=== PATIENT | male | born 1960 | race Caucasian/White ===

== ENCOUNTER 2020-01-03 13:55 | Observation (INO) | payer MEDICARE, SELFPAY ==
[2020-01-03] VITALS (9 sets, daily range): BP systolic 112–132; BP diastolic 68–95; PULSE 70–90; RESP 16–18; TEMP 36.6–37.4; O2SAT 95–98; BMI 21.2
--- NOTE | ~2020-01-03 | XR_ITS ---
EXAMINATION: XR chest 2V EXAM DATE: 01/03/2020 14:49 INDICATION: Productive cough. Chest pain. TECHNIQUE: Frontal and lateral projections of the chest obtained and reviewed. There is no prior toñito dy for comparison. FINDINGS: Sternotomy wires are present without findings to suggest sternal dehiscence. Scattered chronometer assembler sandoval reticular nodular opacities with basilar predominance. This has similar appearance to prior study and is likely patient's underlying interstitial lung disease. No confluent consolidation, pneumothor ax or pleural effusion suspected. There are mild bony degenerative changes. Accounting for difference s in technique, there is no significant interval change. IMPRESSION: 1. Chronic interstitial lung disease. 2. No acute findings. Reviewed, dictated and finalized at location B. SORTER
--- NOTE | 2020-01-03 13:58 | ECG_ITS ---
Measurements Intervals [place] Rate: 78 P: 50 AR: 163 QRS: -16 QRSD: 132 T: 39 QT: 402 QTc: 458 Interpretive Statements SINUS RHYTHM RIGHT BUNDLE BRANCH BLOCK ABNORMAL ECG Electronically Signed On 01-03-2020 14:25:23 RETAIL STORE ASSISTANT by Familia Zuleta D.O.
[2020-01-03 14:17] LABS: Basophils Absolute Auto 0.1 K/mm3 (0.0-0.1); Basophils Percent Auto 0.5 % (0.2-1.2); Eosinophils Absolute Auto 0.4 K/mm3 (0-0.3); Eosinophils Percent Auto 3.2 % (0-4.4); Hematocrit 44.1 % (42.0-52.0); Hemoglobin 14.8 g/dL (14.0-18.0); Immature Granulocyte Absolute 0.07 K/mm3 (0.00-0.031); Immature Granulocyte Percent A 0.6 % (0-0.5); Lymphocytes Absolute Auto 2.36 K/mm3 (0.9-3.2); Lymphocytes Percent Auto 19.1 % (18.3-44.2); Mean Corpuscular HGB Conc 33.6 g/dl (32-36); Mean Corpuscular Hemoglobin 31.5 pg (26-34); Mean Corpuscular Volume 93.8 fl (80-100); Monocytes Absolute Auto 1.9 K/mm3 (0.1-0.6); Monocytes Percent Auto 15.3 % (2.6-8.5); Neutrophils Absolute Auto 7.6 K/mm3 (1.3-6.7); Neutrophils Percent Auto 61.3 % (45.5-73.1); Platelet Count Result 167 k/mm3 (150-375); Red Cell Distribution Width 13.2 % (11.5-14.5); White Blood Count 12.4 K/mm3 (4.5-10.0)
[2020-01-03 14:30] LABS: Blood Urea Nitrogen 4 mg/dL (9-20); Calcium 9.3 mg/dL (8.4-10.2); Carbon Dioxide 26 mmol/L (22-30); Chloride 100 mmol/L (98-107); Estimated CRCL calculation 107 ml/min; Estimated Glomerular Filt Rate > 60; Glucose 139 mg/dL (75-110); Potassium 3.9 mmol/L (3.4-5.0); Sodium 140 mmol/L (137-145)
[2020-01-03 14:31] LABS: INR 1.1; Prothrombin Time 13.9 Seconds (11.1-14.7)
[2020-01-03 14:32] LABS: Partial Thromboplastin Time 31.1 SECONDS (22.3-36.8)
--- NOTE | 2020-01-03 14:40 | ED.CHESTPAIN ---
HPI - Chest Pain General Chief Complaint: Chest Pain Stated Complaint: cough, chest pain Time Seen by Provider: 01/03/20 14:38 Source: patient and RN notes reviewed Mode of arrival: ambulatory Limitations: no limitations History of Present Illness HPI narrative: Pt is a 59 y/o male with a Hx of multiple NJ's and 6 cardiac stents, who presents to the ED with c/o central chest pain starting early this morning. He notes that he woke up around 3 AM this morning with pain in the center of his chest. Pt states that he only has pain with inspiration, and notes that his pain is currently resolved in the ED bed. He reports having a cough for the past month, but notes that he began producing a green sputum with his cough last night. Pt denies any SOB, fever, chills, nausea, or vomiting. MD complaint: chest pain Pertinent past history: coronary artery disease and prior NJ Onset (ago): hour(s) (11) Timing of current episode: now resolved Onset: awoke with symptoms Pain location: other (central chest) Exacerbating factors: inspiration Associated symptoms: cough (productive) Related Data Home Medications Medication Instructions Recorded Confirmed aspirin 81 mg tablet,delayed 81 mg PO DAILY 11/29/19 release metoprolol succinate 50 mg 50 mg PO DAILY 11/29/19 tablet,extended release 24 hr nitroglycerin 6.5 mg 6.5 mg PO Q12H PRN 11/29/19 capsule,extended release ticagrelor 90 mg tablet 90 mg PO BID tablet 11/29/19 evolocumab 140 mg/mL subcutaneous 140 mg SUB-Q ONCE 12/31/19 pen injector isosorbide mononitrate 30 mg 30 mg PO DAILY 12/31/19 tablet,extended release 24 hr gbcvxi-mfrmuqxb-mseyhdg PO 12/31/19 6,000-19,000-30,000 unit capsule,delayed rel omega-3 fatty acids 1,000 mg 1,000 mg PO DAILY 12/31/19 capsule Allergies Allergy/AdvReac Type Severity Reaction Status Date / Time Xjyqovh-Jcq-Vnl Reductase Allergy Unknown Unknown Verified 01/03/20 14:10 Inhibitor Review of Systems Review of Systems: All systems reviewed & are unremarkable except as noted in HPI and below Constitutional: Constitutional: Denies chills and Denies fever(s) Cardiovascular: Cardiovascular: Reports chest pain (central chest pain) Respiratory: Respiratory: Reports cough (productive) and Denies dyspnea Gastrointestinal: Gastrointestinal: Denies nausea and Denies vomiting PMFSH Past Medical History Medical History Chronic pancreatitis Coronary artery disease GERD (gastroesophageal reflux disease) History of rectal polyps Hyperlipidemia Hypertension Myocardial infarction x7 Pneumonia TIA (transient ischemic attack) Surgical History Surgical History History of cholecystectomy History of heart artery stent x6 History of tonsillectomy Hx of appendectomy Hx of CABG Hx of cardiac catheterization Social History Social History Smoking status: Former smoker Second hand tobacco smoke exposure: Yes Smoking end date: 11/24/99 Alcohol intake: never Substance use: never Substance use type: does not use Gender identity (if verbalized by the patient): Male Comments PCP is Dr. Padilla. Exam Narrative: Exam Narrative: General appearance: Well-developed, well-nourished Skin: Normal color Head: Normocephalic, nontraumatic Eyes: Clear conjunctiva ENT: Oropharynx normal, ears normal, nose normal Neck: Supple, nontender Chest and respiratory: Airway patent, no respiratory distress, no accessory muscle use Heart: Regular rate/rhythm Abdomen: Soft, nontender, no organomegaly, quiet bowel sounds Vascular: Normal peripheral pulses, normal capillary refill. Musculoskeletal: Normal range of motion, nontender back Neurologic: Alert and oriented ?3, COMMERCIAL LOAN ADMINISTRATOR is normal as tested, no gross motor deficit
[2020-01-03 14:42] LABS: Troponin I < 0.012 ng/mL (0.000-0.034)
[2020-01-03] MEDS: ASPIRIN 81 MG CHEWABLE TABLET 324 MG PO (14:54)
[2020-01-03 17:31] LABS: Troponin I < 0.012 ng/mL (0.000-0.034)
[2020-01-03] MEDS: ENOXAPARIN 80 MG/0.8 ML SYRINGE SUB-Q (18:15)
--- NOTE | 2020-01-03 20:25 | ADMGEN ---
This patient, Kashif Rhodes, was admitted to IMU Room 213-01. Patient/family oriented to hospital policies and general routines including ID bracelet, bed and alarms, visiting hours, pain management, procedures, bathroom and other care routines, personal items, smoking policy, room service/diet, and visiting hours. Valuables list has been completed. Information on how to activate the Rapid Response Team has been discussed. Patient/Family are encouraged to report perceived risks to care and to ask questions if they do not understand what they are told or what they should do.
[2020-01-03 20:28] LABS: Troponin I < 0.012 ng/mL (0.000-0.034)
--- NOTE | 2020-01-03 22:00 | PM.IMHP ---
H&P: HPI History of Present Illness Chief complaint: Chest pain and cough. Narrative: Kashif Rhodes is a pleasant 59 year old male with premature coronary artery disease who presented to the emergency department earlier this afternoon via private vehicle from home for evaluation of chest pain and a cough. He has had cold symptoms for the past 3 days including sinus congestion, clear rhinorrhea, and a cough that is now productive of green phlegm. He has been drinking an mhal-gwg-fhufcug cold and flu remedy with a bit of benefit. This morning, however, he was wakened from sleep at 03:00 with diffuse anterior chest pain, more so on the right. He describes classic pleuritic pain, stating it is worse with coughing and deep inspiration. His has had similar symptoms as well. He was concerned that perhaps he was developing pneumonia and thus came in for evaluation. He was surprised when he was being admitted, and on several occasions he tells me ?I have had heart attacks and I know that this is not all similar.? He has not had fever, chills, or sweats. He has not had exertional chest pain or shortness of breath. No orthopnea or PND. No nausea or vomiting. Review of Systems Review of Systems: Narrative: Twelve systems were reviewed with pertinent positives and negatives as per HPI. No headache or neck ache. He denies otalgia and odynophagia. He has occasional diarrhea which he blames on his liver disease. He has not had any of that recently. No lower extremity edema, calf pain, or tenderness. No history of venous thromboembolism. Except as documented, all other systems were reviewed and are negative. [facility] Past Medical History Medical History (Updated 01/04/20 @ 02:57 by Candi Wyatt PA-C) Chronic pancreatitis Cirrhosis Previous liver biopsy confirming diagnosis. Apparently cryptogenic in etiology. Coronary artery disease Patient with history of premature coronary artery disease in his 40s. He is status post multivessel CABG. On several occasions he was taken to cardiac catheterization lab per Dr. Champion, and due to his complex disease he has at times required intervention at [facility]. GERD (gastroesophageal reflux disease) History of rectal polyps Hyperlipidemia Hypertension TIA (transient ischemic attack) Surgical History Surgical History (Updated 01/04/20 @ 02:53 by Candi Wyatt PA-C) History of cholecystectomy History of heart artery stent x6 History of tonsillectomy Hx of cardiac catheterization Last cardiac catheterization at this facility was May 31, [address] Champion. At that time it was noted that he had a patent stent to the circumflex. SVG to the OM and diagonal were apparently occluded. [place] to LAD was patent. There was severe stenosis to a very large caliber vein graft to the RCA with 95 to 99% stenosis. This was deemed to be too high risk and he was transferred to [facility], where a total of 6 stents were placed. Status post appendectomy, follow-up exam Status post coronary artery bypass graft Family History Family History Mother Family history of cardiovascular disease Diabetes mellitus Myocardial infarct Sibling Diabetes mellitus Pancreatitis Social History Social History (Updated 01/04/20 @ 02:54 by Candi Wyatt PA-C) Social History: The patient lives in [place] with his . He designates his as his surrogate decision maker and he wishes to be a full code. 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 His primary care provider is Dr. Loreta Padilla. He smoked 1 to 2 cigars a day but quit in 2008 after his bypass. No alcohol or drug abuse. Spiritual care concerns: No Agree to blood products: Yes Meds Home Medications and Allergies Home Medications Medication Instructions Recorded Confirmed Type niacin 1,000 mg tablet,extended 1,000 mg PO .QHS #90 tablet 09/28/19 01/03/20 Rx release metoprolol suc
[2020-01-04] VITALS (7 sets, daily range): BP systolic 114–121; BP diastolic 72–79; PULSE 65–103; RESP 16–20; TEMP 36.6–36.7; O2SAT 97–98
[2020-01-04] MEDS: TICAGRELOR 90 MG TABLET PO (10:01)
[2020-01-04] MEDS: ASPIRIN 81 MG ENTERIC TABLET PO (10:01)
[2020-01-04] MEDS: OMEGA 3 POLYUNSAT FATTY ACIDS 1 GM CAP PO (10:01)
[2020-01-04] MEDS: METOPROLOL SUCCINATE EXT REL 50 MG TABCR PO (10:01)
--- NOTE | 2020-01-04 10:06 | PM.CNCAR ---
Assessment and Plan Assessment and plan (1) Respiratory tract infection: Code(s): J98.8 - Other specified respiratory disorders Status: Acute Assessment and Plan: Management as per primary team Annual influenza vaccinations recommended (2) Chest pain: Code(s): R07.9 - Chest pain, unspecified Status: Acute Assessment and Plan: Patient has chest pain while coughing. His EKG shows sinus rhythm, right bundle-branch block, no acute ST segment abnormality. Serial troponins are negative. (3) Coronary artery disease: Qualifiers: Associated angina: angina presence unspecified Coronary Disease-Associated Artery/Lesion type: unspecified vessel or lesion type [place] vs. transplanted heart: [place] heart Qualified Code(s): I25.10 - Atherosclerotic heart disease of [place] coronary artery without angina pectoris Code(s): I25.10 - Atherosclerotic heart disease of [place] coronary artery without angina pectoris Status: Acute Assessment and Plan: Patient has known coronary disease, history of CABG; history of multiple PCI/stent placements. Continue current optimal medical treatment including dual antiplatelet therapy with aspirin and ticagrelor; beta-maryjane, nitrates and PCSK9 inhibitor. Patient has history of statin intolerance. Patient will follow-up with his primary auctioneer art-Dr. Champion for longitudinal care. (4) History of heart artery stent: Code(s): Z95.5 - Presence of coronary angioplasty implant and graft Status: Chronic History of Present Illness History of Present Illness Consult date/time: Date of consult: 01/04/20 10:06 Reason for consult: Chest pain Requesting physician:KRISTINA Wyatt Chief complaint: Chest pain HPI: 59-year-old male with complex cardiac history with known CAD, history of CABG in 2008 with GUAN to LAD, SVG to OM, diagonal and RCA; history of multiple PCI/stent placements over the years (last intervention on 05/31/2019 at [facility] with laser atherectomy with overlapping drug-eluting stents in the ostial-proximal vein graft; drug-eluting stent to the anastomosis of RPL); statin intolerance currently on PCSK9 inhibitor. Patient was admitted to the hospital with complaints of cough with expectoration associated with chest discomfort. He states that his symptoms started about 1 day ago with cough and greenish expectoration. He had some discomfort in the chest during coughing. He denied any fever or chills. Patient denies any recent sick contacts. He states that he has not had influenza vaccination for this season yet. Bedside influenza test was a reportedly negative. Patient has no CAD and history of multiple PCI/stent placements. Last intervention once on 05/31/2019 at [facility]. He has not had any recurrent angina. He reports compliance with current medical regimen including antiplatelet therapy and PCSK9 inhibitor. He is a nonsmoker. EKG on this admission which I personally evaluated shows sinus rhythm, right bundle-branch block, no acute ST segment abnormality. Serial troponins are negative. Chest x-ray showed chronic interstitial lung disease, no acute changes. Reason For Visit: Chest pain and cough. Review of Systems Constitutional: Constitutional: Denies chills, Denies fatigue, Denies fever(s) and Denies headache(s) Eyes: Eyes: Reports as per HPI, Denies change in vision, Denies loss of vision and Denies eye pain ENT: Reports as per HPI, Reports Normal hearing present, Denies headache(s), Denies lip swelling, Denies epistaxis and Denies sore throat Cardiovascular: Cardiovascular: Reports as per HPI, Reports chest pain (Chest pain while coughing), Denies syncope, Denies irregular heart rhythm, Denies lightheadedness and Denies dyspnea Respiratory: Respiratory: Reports as per HPI, Reports cough, Denies dyspnea and Denies wheezing Gastrointestinal: Gastrointestinal: Reports as per HPI, Denies abdominal pain
[2020-01-04] MEDS: ISOSORBIDE MONONITRATE 30 MG TAB.ER.24H PO (11:45)
--- NOTE | 2020-01-04 11:45 | PM.DS ---
DS: Diagnosis Admitting Diagnosis Admitting Diagnosis: Chest pain, unspecified Discharge Diagnosis (1) Chest pain: Code(s): R07.9 - Chest pain, unspecified Status: Acute Assessment and Plan: Patient, again, describes pleuritic chest pain, likely pleurisy due to a viral syndrome. He is wishing to go home today. His chest pain with coughing has nearly resolved today with Mucinex He has been ruled out for acute coronary syndrome by serial troponins. Cardiology consulted by ER and appreciate input. (2) Viral syndrome: Code(s): B34.9 - Viral infection, unspecified Status: Acute Assessment and Plan: No evidence of pneumonia on chest x-ray, although his white count is a bit elevated. Bedside influenza testing was negative. Will continue to refrain from antibiotics at this time as he has been afebrile;VSS Supportive care including Tylenol for pleuritic pain and Mucinex to help mobilize secretions at discharge (3) Coronary artery disease: Qualifiers: Associated angina: angina presence unspecified Coronary Disease-Associated Artery/Lesion type: unspecified vessel or lesion type [place] vs. transplanted heart: [place] heart Qualified Code(s): I25.10 - Atherosclerotic heart disease of [place] coronary artery without angina pectoris Code(s): I25.10 - Atherosclerotic heart disease of [place] coronary artery without angina pectoris Status: Acute Assessment and Plan: No acute issues. Continue to of anti-platelet therapy and beta maryjane. Follow up with Cellophane Bath Mixer as OP (4) Hypertension: Code(s): I10 - Essential (primary) hypertension Status: Acute Assessment and Plan: Blood pressures were reviewed and they are stable. Continue antihypertensives and monitor daily. DS: Summary Hospital Course Reason for hospitalization: Chest pain, rule out ACS Hospital Course: Patient is a 59 yo M with history of premature coronary artery disease who presented to the emergency department on 01/03 via private vehicle from home for evaluation of chest pain and a cough. He had cold symptoms for 3 days prior to presentation including sinus congestion, clear rhinorrhea, and a cough that is now productive of green phlegm. The morning of presentation, he was awoken from his sleep at 0300 with anterior and right chest pain. The pain was pleuritic in nature, worse with coughing and deep inspiration; patient commented on several occasions on admission, ?I have had heart attacks and I know that this is not all similar.? ER requested patient to be admitted for further evaluation and to rule out ACS as patient was at high risk for this. HEART score of 4. Please see H&P for further details. Presenting VS: BP 112/68, HR 78, RR 16, temp 99.3, sat 98% RA Presenting Pertinent labs: WBC 12.4. Troponins negative x3. CBC, BMP, coags otherwise unremarkable Micro: none Imagin/10 CXR IMPRESSION: 1. Chronic interstitial lung disease. 2. No acute findings. ECG: Interpretive Statements SINUS RHYTHM RIGHT BUNDLE BRANCH BLOCK ABNORMAL ECG Patient was admitted to the hospitalist service for further evaluation; Dr. Turpin (Cardiology) was consulted for further input. Troponins negative x3, CXR unremarkable, influenza neagtive, VSS, afebrile during stay. It was felt this was pleuritic in nature and pain had subsided with mucinex and Tylenol. Patient was cleared from a Cardiology standpoint. Patient instructed to continue taking his medication as prescribed. Patient instructed to take Tylenol sparingly and Mucinex for symptom relief as this was felt to be viral in nature. Patient hemodynamically stable and in improved condition on discharge on 01/04. Patient instructed to follow up with PCP as needed and Cellophane Bath Mixer per their instructions. Status
== END 2020-01-04 12:23 | disposition home or self-care (01) ==
LOC: ANHED 17:26 → ANHIMU 18:45
PROVIDERS: Admitting Provider Internal Medicine; Emergency Provider Emergency Medicine; PCP Family Medicine; Visit Provider Family Medicine
DX: R07.9 Chest pain, unspecified (principal); B34.9 Viral infection, unspecified; I25.10 Atherosclerotic heart disease of native coronary artery without angina pectoris; I10 Essential (primary) hypertension; I25.2 Old myocardial infarction; Z23 Encounter for immunization; K86.1 Other chronic pancreatitis; K21.9 Gastro-esophageal reflux disease without esophagitis; E78.5 Hyperlipidemia, unspecified; Z86.73 Personal history of transient ischemic attack (TIA), and cerebral infarction without residual deficits; Z87.891 Personal history of nicotine dependence; Z95.5 Presence of coronary angioplasty implant and graft
CPT/HCPCS: 36415; 71046; 80048; 84484; 85025; 85610; 85730; 87804; 90471; 90686; 93005; 96372; 99285; A9270; G0008; G0378; J1650

== ENCOUNTER 2020-01-20 10:34 | Outpatient (CLI) | payer MEDICARE, SELFPAY ==
[2020-01-20 11:26] LABS: Alanine Aminotransferase 53 U/L (4-50); Albumin Level 4.4 g/dL (3.5-5.1); Alkaline Phosphatase 112 U/L (38-126); Aspartate Amino Transferase 68 U/L (17-59); Bilirubin,Total 0.4 mg/dL (0.2-1.3); Blood Urea Nitrogen 5 mg/dL (9-20); Calcium 9.8 mg/dL (8.4-10.2); Carbon Dioxide 29 mmol/L (22-30); Chloride 101 mmol/L (98-107); Cholesterol 120 mg/dL (0-200); Estimated Glomerular Filt Rate > 60; Glucose 139 mg/dL (75-110); HDL Direct 22 mg/dL; Potassium 4.1 mmol/L (3.4-5.0); Sodium 141 mmol/L (137-145); Triglycerides 305 mg/dL (<150)
[2020-01-20 11:37] LABS: LDL Cholesterol Direct 49 mg/dL
== END 2020-01-20 10:35 | disposition home or self-care (01) ==
LOC: ANHLAB 10:38
PROVIDERS: PCP Family Medicine; Visit Provider Family Medicine
DX: E78.5 Hyperlipidemia, unspecified (principal)
CPT/HCPCS: 36415; 80053; 80061

== ENCOUNTER 2020-01-24 08:57 | Outpatient (CLI) | payer MEDICARE, SELFPAY ==
[2020-01-24 09:19] LABS: Hemoglobin A1C 5.4 % (<5.7)
== END 2020-01-24 08:58 | disposition home or self-care (01) ==
PROVIDERS: PCP Family Medicine; Visit Provider Family Medicine
DX: R73.01 Impaired fasting glucose (principal)
CPT/HCPCS: 36415; 83036

== ENCOUNTER 2020-03-16 11:36 | Outpatient (CLI) | payer MEDICARE, SELFPAY ==
[2020-03-16 12:24] LABS: Cholesterol 147 mg/dL (0-200); HDL Direct 23 mg/dL; Triglycerides 395 mg/dL (<150)
[2020-03-16 12:41] LABS: LDL Cholesterol Direct 56 mg/dL
== END 2020-03-16 11:37 | disposition home or self-care (01) ==
PROVIDERS: PCP Family Medicine; Visit Provider Specialist
DX: Z13.220 Encounter for screening for lipoid disorders (principal); I25.10 Atherosclerotic heart disease of native coronary artery without angina pectoris; Z95.5 Presence of coronary angioplasty implant and graft; Z53.09 Procedure and treatment not carried out because of other contraindication; Z79.899 Other long term (current) drug therapy
CPT/HCPCS: 36415; 80061

== ENCOUNTER 2021-05-11 09:51 | Outpatient (CLI) | payer MEDICARE, SELFPAY ==
[2021-05-11 10:09] LABS: Hematocrit 43.6 % (40.0-54.0); Hemoglobin 14.8 g/dL (14.0-18.0); Mean Corpuscular HGB Conc 33.9 g/dL (32.0-36.0); Mean Corpuscular Hemoglobin 30.6 pg (27.0-31.0); Mean Corpuscular Volume 90.1 fL (78.0-102.0); Mean Platelet Volume 10.4 fl (8.7-11.0); Platelet Count Result 175 K/mm3 (150-420); Red Blood Count 4.84 M/mm3 (4.70-6.10); Red Cell Distribution Width 14.7 % (11.6-14.4); White Blood Count 9.7 K/mm3 (4.8-10.8)
[2021-05-11 10:20] LABS: Hemoglobin A1C 6.3 % (<5.7)
[2021-05-11 10:28] LABS: INR 1.2; Prothrombin Time 12.5 Seconds (9.50-12.10)
[2021-05-11 10:54] LABS: Anion Gap 12 mmol/L (8-16); Blood Urea Nitrogen 8 mg/dL (7-18); Calcium 9.5 mg/dL (8.5-10.1); Carbon Dioxide 25 mmol/L (21-32); Chloride 100 mmol/L (98-108); Estimated Glomerular Filt Rate > 60; Glucose 118 mg/dL (70-99); Iron 42 ug/dL (65-175); Lipase 47 U/L (73-393); Osmolality Calculated 283 mOsm/kg (285-295); Percent Iron Saturation 12 % (12-57); Potassium 4.4 mmol/L (3.5-5.1); Prostate Specific Antigen 0.4 ng/mL (< OR = 4.0); Sodium 137 mmol/L (136-145)
[2021-05-11 11:01] LABS: Thyroid Stimulating Hormone Reflex 0.86 u/IU/mL (0.36-3.74)
[2021-05-14 03:38] LABS: Vitamin D 25 Hydroxy 15 ng/mL (30-100)
[2021-05-14 04:14] LABS: Hepatitis A Antibody IgM Nonreactive; Hepatitis B Core Antibody Nonreactive (Nonreactive); Hepatitis B Surface Antigen Nonreactive (Nonreactive); Hepatitis C Signal to Cutoff 0.09 ratio (<1.00); Hepatitis C Virus Antibody Nonreactive (Nonreactive)
== END 2021-05-11 09:52 | disposition home or self-care (01) ==
LOC: CHSLAB 09:54
PROVIDERS: PCP Family Medicine; Visit Provider Family Medicine
DX: R53.83 Other fatigue (principal); R73.9 Hyperglycemia, unspecified; I10 Essential (primary) hypertension; E78.5 Hyperlipidemia, unspecified; E55.9 Vitamin D deficiency, unspecified; Z12.5 Encounter for screening for malignant neoplasm of prostate; K74.69 Other cirrhosis of liver; K86.1 Other chronic pancreatitis
CPT/HCPCS: 36415; 80048; 80074; 82306; 83036; 83540; 83550; 83690; 84153; 84443; 85027; 85610; G0103

== ENCOUNTER 2021-06-07 08:42 | Outpatient (CLI) | payer MEDICARE, SELFPAY ==
--- NOTE | ~2021-06-07 | US_ITS ---
US abdomen complete DATE: 06/07/2021 09:58 INDICATION: Cirrhosis of the liver TECHNIQUE: Real-time imaging of the abdomen, Doppler analysis COMPARISON: 05/29/2016 CT abdomen pelvis FINDINGS: The gallbladder is surgically absent. There is hepatic steatosis. No focal hepatic space-occupying mass lesion is evident. Normal hepatoped al portal venous flow direction. The spleen measures upper limits of normal at 12.5 cm vertical dimension. No pancreatic mass lesion is evident. The common bile duct measures 4 mm, normal. The right and left kidneys each measure approximately 12.7 cm length. No renal mass lesion or hydrone phrosis is evident. Up to approximately 1.9 cm infrarenal abdominal aortic aneurysm. The inferior vena cava is unremarkab le. IMPRESSION: Hepatic steatosis Up to 4.9 cm infrarenal abdominal aortic aneurysm Status post cholecystectomy Reviewed, dictated and finalized at Location A. Reviewed, dictated and finalized at location A.
== END 2021-06-07 08:43 | disposition home or self-care (01) ==
LOC: ANHIMG 08:44
PROVIDERS: PCP Family Medicine; Visit Provider Family Medicine
DX: K74.69 Other cirrhosis of liver (principal); K86.1 Other chronic pancreatitis; K76.0 Fatty (change of) liver, not elsewhere classified; I71.4 Abdominal aortic aneurysm, without rupture; Z90.49 Acquired absence of other specified parts of digestive tract
CPT/HCPCS: 76700

== ENCOUNTER 2022-05-09 09:55 | Outpatient (CLI) | payer MEDICARE, SELFPAY ==
[2022-05-09 10:09] LABS: Hematocrit 44.3 % (42.0-52.0); Hemoglobin 14.5 g/dL (14.0-18.0); Mean Corpuscular HGB Conc 32.7 g/dl (32-36); Mean Corpuscular Hemoglobin 31.1 pg (26-34); Mean Corpuscular Volume 95.1 fl (80-100); Mean Platelet Volume 10.4 fl (7.4-10.4); Platelet Count Result 164 k/mm3 (150-375); Red Blood Count 4.66 M/mm3 (4.6-6.20); Red Cell Distribution Width 13.7 % (11.5-14.5); White Blood Count 9.8 K/mm3 (4.5-10.0)
[2022-05-09 10:20] LABS: Alanine Aminotransferase 46 U/L (6-50); Albumin Level 4.4 g/dL (3.5-5.1); Alkaline Phosphatase 155 U/L (38-126); Anion Gap 6 mmol/L (8-16); Aspartate Amino Transferase 56 U/L (17-59); Bilirubin,Total 0.5 mg/dL (0.2-1.3); Blood Urea Nitrogen 8 mg/dL (9-20); Calcium 9.2 mg/dL (8.4-10.2); Carbon Dioxide 27 mmol/L (22-30); Chloride 104 mmol/L (98-107); Cholesterol 129 mg/dL (0-200); Estimated Glomerular Filt Rate > 60; Glucose 103 mg/dL (65-110); HDL Direct 34 mg/dL; Potassium 4.3 mmol/L (3.4-5.0); Sodium 137 mmol/L (137-145); Triglycerides 270 mg/dL (<150)
[2022-05-09 10:31] LABS: LDL Cholesterol Direct 50 mg/dL
[2022-05-09 10:51] LABS: Prostate Specific Antigen 0.5 ng/mL (< OR = 4.0)
[2022-05-09 11:07] LABS: Vitamin D 25 Hydroxy 29.4 ng/mL
[2022-05-09 11:20] LABS: Thyroid Stimulating Hormone Reflex 0.813 uIU/mL (0.465-4.68)
== END 2022-05-09 09:56 | disposition home or self-care (01) ==
PROVIDERS: PCP Family Medicine; Visit Provider Family Medicine
DX: R53.83 Other fatigue (principal); R73.03 Prediabetes; E55.9 Vitamin D deficiency, unspecified; Z12.5 Encounter for screening for malignant neoplasm of prostate; E78.2 Mixed hyperlipidemia; I10 Essential (primary) hypertension
CPT/HCPCS: 36415; 80053; 80061; 82306; 83036; 84153; 84443; 85027; G0103

== ENCOUNTER 2022-05-23 10:05 | Outpatient (CLI) | payer MEDICARE, SELFPAY ==
[2022-05-23 11:00] LABS: Add Urine Microscopic? NO; Appearance Urine Clear (Clear); Bilirubin Urine Negative (Negative); Blood Urine Negative (Negative); Color Urine Yellow (Yellow); Glucose Urine UA Negative (Negative); Ketones Urine Negative (Negative); Leukocyte Esterase Ur Negative LEU/UL (NEGATIVE); Nitrate Urine Negative (Negative); Protein Urine Negative (Negative); Specific Grav Ur 1.015 (1.001-1.035); Urobilinogen Urine 0.2 mg/dL (<2.0)
[2022-05-27 14:25] LABS: Alpha 1 Globulin 0.3 g/dL (0.2-0.3); Beta 1 Globulin 0.5 g/dL (0.4-0.6); Gamma Globulin 2.6 g/dL (0.8-1.7); Protein, Total 8.8 g/dL (6.1-8.1)
== END 2022-05-23 10:06 | disposition home or self-care (01) ==
LOC: ANHLAB 10:09
PROVIDERS: PCP Family Medicine; Visit Provider Family Medicine
DX: R77.9 Abnormality of plasma protein, unspecified (principal)
CPT/HCPCS: 36415; 81003; 84155; 84165

== ENCOUNTER 2022-11-12 11:11 | Outpatient (CLI) | payer MEDICARE, SELFPAY ==
[2022-11-12 11:36] LABS: Basophils Absolute Auto 0.1 K/mm3 (0.0-0.1); Basophils Percent Auto 0.8 % (0.2-1.2); Eosinophils Absolute Auto 0.4 K/mm3 (0-0.3); Eosinophils Percent Auto 4.2 % (0-4.4); Hematocrit 43.6 % (42.0-52.0); Hemoglobin 14.5 g/dL (14.0-18.0); Immature Granulocyte Absolute 0.08 K/mm3 (0.00-0.031); Immature Granulocyte Percent A 0.9 % (0-0.5); Lymphocytes Absolute Auto 1.97 K/mm3 (0.9-3.2); Mean Corpuscular HGB Conc 33.3 g/dl (32-36); Mean Corpuscular Hemoglobin 31.3 pg (26-34); Mean Corpuscular Volume 94.2 fl (80-100); Monocytes Absolute Auto 1.2 K/mm3 (0.1-0.6); Monocytes Percent Auto 13.6 % (2.6-8.5); Neutrophils Absolute Auto 4.9 K/mm3 (1.3-6.7); Neutrophils Percent Auto 57.5 % (45.5-73.1); Platelet Count Result 161 k/mm3 (150-375); Red Blood Count 4.63 M/mm3 (4.6-6.20); Red Cell Distribution Width 13.2 % (11.5-14.5); White Blood Count 8.6 K/mm3 (4.5-10.0)
[2022-11-12 11:49] LABS: Alanine Aminotransferase 74 U/L (6-50); Albumin Level 4.5 g/dL (3.5-5.1); Alkaline Phosphatase 163 U/L (38-126); Anion Gap 5 mmol/L (8-16); Aspartate Amino Transferase 91 U/L (17-59); Bilirubin,Total 0.5 mg/dL (0.2-1.3); Blood Urea Nitrogen 6 mg/dL (9-20); Calcium 9.2 mg/dL (8.4-10.2); Carbon Dioxide 30 mmol/L (22-30); Chloride 102 mmol/L (98-107); Cholesterol 142 mg/dL (0-200); Estimated Glomerular Filt Rate > 60; Glucose 110 mg/dL (65-110); HDL Direct 33 mg/dL; Potassium 4.2 mmol/L (3.4-5.0); Sodium 137 mmol/L (137-145); Triglycerides 345 mg/dL (<150)
[2022-11-12 11:55] LABS: Hemoglobin A1C 6.4 % (<5.7)
[2022-11-12 12:00] LABS: LDL Cholesterol Direct 49 mg/dL
[2022-11-12 14:38] LABS: Vitamin D 25 Hydroxy 17.2 ng/mL
== END 2022-11-12 11:12 | disposition home or self-care (01) ==
LOC: ANHLAB 11:12
PROVIDERS: PCP Family Medicine; Visit Provider Family Medicine
DX: R53.83 Other fatigue (principal); R73.03 Prediabetes; I10 Essential (primary) hypertension; E78.5 Hyperlipidemia, unspecified; E78.2 Mixed hyperlipidemia; E55.9 Vitamin D deficiency, unspecified
CPT/HCPCS: 36415; 80053; 80061; 82306; 83036; 85025

== ENCOUNTER 2024-04-09 14:12 | Outpatient (CLI) | payer MEDICARE, SELFPAY ==
[2024-04-09 14:55] LABS: Alanine Aminotransferase 49 U/L (6-50); Albumin Level 4.7 g/dL (3.5-5.1); Alkaline Phosphatase 120 U/L (38-126); Anion Gap 8 mmol/L (4-12); Aspartate Amino Transferase 84 U/L (17-59); Bilirubin,Total 0.7 mg/dL (0.2-1.3); Blood Urea Nitrogen 6 mg/dL (9-20); Calcium 9.2 mg/dL (8.4-10.2); Carbon Dioxide 26 mmol/L (22-30); Chloride 104 mmol/L (98-107); Cholesterol 124 mg/dL (0-200); Estimated Glomerular Filt Rate > 60; Glucose 116 mg/dL (65-110); HDL Direct 37 mg/dL; Sodium 138 mmol/L (137-145); Triglycerides 301 mg/dL (<150)
[2024-04-09 14:59] LABS: Hemoglobin A1C 6.2 % (<5.7)
[2024-04-09 15:05] LABS: LDL Cholesterol Direct 53 mg/dL
== END 2024-04-09 14:13 | disposition home or self-care (01) ==
LOC: ANHLAB 14:13
PROVIDERS: PCP Family Medicine; Visit Provider Family Medicine
DX: R73.03 Prediabetes (principal); E78.2 Mixed hyperlipidemia; I10 Essential (primary) hypertension
CPT/HCPCS: 36415; 80053; 80061; 83036

== ENCOUNTER 2024-05-11 08:54 | Outpatient (CLI) | payer MEDICARE, SELFPAY ==
[2024-05-11 09:28] LABS: Cholesterol 162 mg/dL (0-200); HDL Direct 32 mg/dL; Triglycerides 462 mg/dL (<150)
[2024-05-11 09:40] LABS: LDL Cholesterol Direct 85 mg/dL
== END 2024-05-11 08:55 | disposition home or self-care (01) ==
LOC: ANHLAB 08:56
PROVIDERS: PCP Family Medicine; Visit Provider Specialist
DX: I25.10 Atherosclerotic heart disease of native coronary artery without angina pectoris (principal)
CPT/HCPCS: 36415; 80061

== ENCOUNTER 2024-10-14 09:01 | Outpatient (CLI) | payer MEDICARE, SELFPAY ==
[2024-10-14 09:37] LABS: Alanine Aminotransferase 36 U/L (6-50); Albumin Level 4.2 g/dL (3.5-5.1); Alkaline Phosphatase 118 U/L (38-126); Aspartate Amino Transferase 56 U/L (17-59); Bilirubin,Total 0.6 mg/dL (0.2-1.3)
[2024-10-16 11:48] LABS: GGT 166 U/L (3-70)
[2024-10-16 15:18] LABS: Protein, Total 8.1 g/dL (6.1-8.1)
[2024-10-18 12:05] LABS: Albumin 3.8 g/dL (3.8-4.8); Alpha 1 Globulin 0.3 g/dL (0.2-0.3); Alpha 2 Globulin 0.9 g/dL (0.5-0.9); Beta 1 Globulin 0.5 g/dL (0.4-0.6); Gamma Globulin 2.3 g/dL (0.8-1.7)
== END 2024-10-14 09:02 | disposition home or self-care (01) ==
PROVIDERS: PCP Family Medicine; Visit Provider Family Medicine
DX: R77.9 Abnormality of plasma protein, unspecified (principal); R74.8 Abnormal levels of other serum enzymes
CPT/HCPCS: 36415; 80076; 82977; 84155; 84165

== ENCOUNTER 2025-01-27 01:38 | Emergency (ER) | payer MEDICARE, SELFPAY ==
[2025-01-27] VITALS (11 sets, daily range): BP systolic 119–153; BP diastolic 85–112; PULSE 73–74; RESP 16; TEMP 36.4; O2SAT 95–100
--- NOTE | ~2025-01-27 | XR_ITS ---
Thoracic spine: Clinical Indication: Back pain AP and lateral views were performed. No fracture is seen. There is normal alignment of the vertebrae. There is moderate to advanced degen erative disc narrowing at the upper to mid thoracic spine. Paravertebral soft tissues appear normal. Impression: Moderate to advanced degenerative disc narrowing throughout the upper to mid thoracic spine. Reviewed, dictated and finalized at location . COVERER Impression: Moderate to advanced degenerative disc narrowing throughout the upper to mid th oracic spine.
--- NOTE | ~2025-01-27 | XR_ITS ---
Lumbosacral Spine: AP and lateral views Clinical History: Pain Findings: The normal lordotic curve is maintained. No fracture evident. There is grade 1 retrolisthes is of L5 over S1. There is moderate degenerative disc narrowing at L5-S1. There is moderate to advanc ed facet arthropathy at L5-S1. There is mild facet arthropathy and degenerative change in the remaind er of the lumbar spine. The sacroiliac joints are normally outlined. Aortic stent graft in place. Impression: Moderate to advanced degenerative spondylosis at L5-S1. Mild degenerative change in the remainder of the lumbar spine. Reviewed, dictated and finalized at location . DATA ARCHITECT Impression: Moderate to advanced degenerative spondylosis at L5-S1. Mild degenerative dutton e in the remainder of the lumbar spine.
--- OUTSIDE RECORDS SUMMARY | 2025-01-27 01:40 | XMS_ITS | Clinical Summary ---
Author Organization [facility] Address [address] Attn: Epic Prelude ADT [place] [address] Care Team Providers Care Paint Prep Technician Name Role Phone Unavailable Primary Care Provider Unavailabl e Allergies No known active allergies Medications evolocumab (Repatha SureClick) 140 mg/mL Pen Injector Inject 1 mL (140 mg) by subcutaneous injection every 2 weeks. 2 mL 6 03/27/2024 12:50 PM CDT 4 Active evolocumab (Repatha SureClick) 140 mg/mL Pen Injector Inject 1 mL (140 mg total) under the skin every 14 (fourteen) days 2 mL 11 4 Active evolocumab (Repatha SureClick) 140 mg/mL Pen Injector Inject 1 mL (140 mg total) under the skin every 14 (fourteen) days 2 mL 11 01/24/2025 2:16 PM STONECUTTER HAND 4 Active Encounters Date Type Department Care Team Description 11/30/2024 External Device Data ST[facility] ABSTRACTION Provider, Abstract 11/09/2024 External Device Data ST[facility] ABSTRACTION Provider, Abstract from Last 3 Months Social History Tobacco Use Types Packs/Day Years Used Date Smoking Tobacco: Never Assessed Sex and Gender Information Value Date Recorded Sex Assigned at Not on file Legal Sex Male 3:27 PM CDT Gender Identity Not on file Sexual Orientation Not on file Plan of Treatment Health Maintenance Due Date Last Done Comments DTAP/TDAP/TD VACCINES (1 - Tdap) 1979 COLORECTAL SCREENING 2005 Colorectal Cancer Screening 2005 FIT-DNA Q 3 years 2005 FIT/FOBT Q 1 year 2005 Flex Sig/CT Colonography Q 5 years 2005 ZOSTER VACCINE (1 of 2) 2010 INFLUENZA VACCINE (#1) 2024 RSV VACCINE (60+ or ) (1 - 1-dose 75+ series) 2035 PNEUMOCOCCAL VACCINE 0-49 YEARS Aged Out No longer eligible based on patient's age to complete this topic Insurance RX [employer] RX Member Subscriber Plan / Payer (Ef fective for All Dates) Name:ROSENDA RHODES Relation to Subscriber:Self Name:Rosenda Rhodes Payer ID:Not on file Group ID:[id number] Type:RX Commercial Address: [address] [place]
--- OUTSIDE RECORDS SUMMARY | 2025-01-27 01:40 | XMS_ITS | Referral Summary ---
Author Organization [facility] [place] [address] Address [address] [place] [address] Care Team Providers Care Carpenter Packing Name Role Phone Sri Fajardo MD Primary Care Provider [phone] Allergies Active Allergy Reactions Criticality Noted Date Comments Mxdeorc-Zls-Auc Reductase Inhibitors Other (See comments) Low Reaction: Other Medications HYDROcodone-micah taminophen (NORCO) 7.5-325 mg per tablet take 1 tablet by oral route every 6 hours as needed for pain 0 0 03/12/20 16 Active aspirin (ASPIR-81) 81 mg tablet take 1 Tablet by oral route every day 0 0 03/12/20 16 Active niacin 1,000 mg tablet extended release take 2 Tablet by oral route every day at bedtime 0 0 03/12/20 16 Active pancrelipase (CREON) 6,000 units of lipase capsule take 4 capsule by oral route 3 times every day with meals and 2 capsules with each snack 0 0 03/18/20 17 Active fish oil-dha-epa 1,200-144-216 mg capsule Take 1 tablet by mouth daily Active montelukast (SINGULAIR) 10 mg tablet 02/25/20 22 Active metoprolol XL (TOPROL-XL) 50 mg extended release tablet TAKE 1 TABLET BY MOUTH EVERY DAY 90 tablet 3 04/16/20 24 Active evolocumab (Repatha SureClick) 140 mg/mL pen injector Inject 1 mL (140 mg total) under the skin every 14 (fourteen) days 2 mL 11 05/12/20 24 Active isosorbide mononitrate ER (IMDUR) 30 mg 24 hr tablet TAKE 1 TABLET BY MOUTH EVERY DAY 90 tablet 3 10/23/20 24 Active nitroglycerin (NITROSTAT) 0.4 mg SL tabletIndicatio ns:Coronary artery disease involving [place] coronary artery of [place] heart without angina pectoris PLACE 1 TABLET UNDER TONGUE EVERY 5 MINS, UP TO 3 DOSES NEEDED FOR CHEST PAIN 25 tablet 1 01/18/20 25 Active Brilinta 90 mg tablet TAKE 1 TABLET BY MOUTH TWICE A DAY 180 tablet 2 01/18/20 25 Active nitroglycerin (NITROSTAT) 0.4 mg SL tabletIndicatio ns:Coronary artery disease involving [place] coronary artery of [place] heart without angina pectoris DISSOLVE 1 TABLET UNDER TONGUE NEEDED FOR CHEST PAIN (MAY REPEAT EVERY 5 MINUTES UP TO THREE DOSES TOTAL) 25 tablet 2 09/08/20 23 025 Discontinued ticagrelor (Brilinta) 90 mg tablet TAKE 1 TABLET BY MOUTH TWICE A DAY 180 tablet 2 05/28/20 24 025 Discontinued Active Problems Problem Noted Date Diagnosed Date Mixed hyperlipidemia 03/17/2023 Assessment & Plan (09/29/2024 10:12 AM FACULTY PHYSICIAN): Recommend statin therapy. Assessment & Plan (09/16/2023 10:51 AM CDT): Recommend statin therapy. Assessment & Plan (03/17/2023 2:15 PM CDT): Impression: Chronic stable hyperlipidemia. Plan: Continue Repatha Gastroesophageal reflux disease 09/16/2022 Status post endovascular aneurysm repair (EVAR) 08/22/2021 Assessment & Plan (09/17/2022 9:59 AM CDT): Pt is a 6 month follow up of a EVAR on 07/24/21. Aneurysm is stable currently measuring 3.3 cm, previously 4.0 by CTA with no endoleak. He denies any symptoms associated with abdominal pain, side or back pain or claudication. Plan: return in 6 months for routine surveillance with an aortic duplex. Assessment & Plan (08/22/2021 9:45 AM CDT): Assessment: He is doing well after his endovascular aneurysm repair. Plan: CTA here in the next week or 2 for his 1 month baseline and a CTA at 12 months. Continue risk factor modification with ASA and high-intensity statin. Aortic aneurysm without rupture 07/24/2021 Assessment & Plan (09/16/2023 10:51 AM CDT): Status post EVAR with no evidence of endoleak. Continue ongoing surveillance with repeat aortoiliac duplex in 1 year. Primary hypertension 07/11/2021 Assessment & Plan (09/29/2024 10:12 AM FACULTY PHYSICIAN): Stable continue metoprolol. Assessment & Plan (09/16/2023 10:52 AM CDT): Stable continue metoprolol 50 mg. Assessment & Plan (03/17/2023 2:15 PM CDT): Impression: Chronic stable hypertension. Plan: Continue Imdur 30 mg and metoprolol 50 mg. Assessment & Plan (09/17/2022 10:00 AM CDT): Stable chronic hypertension controlled with medications Continue medications as per PCP. Assessment & Plan (03/04/2022 2:52 PM CDT): Impression: Chronic stable hypertension, controlled medications. Blood pressure stable this office visit. Plan: Medications reviewed, no changes made. Continue blood pressure management as per primary care provider. Abdominal aortic aneurysm (AAA) without rupture 07/02/2021 Assessment & Plan (09/29/2024 10:12 AM FACULTY PHYSICIAN): Status post endovascular abdominal aortic aneurysm repair with no evidence of endoleak on his aortoiliac duplex with continued aneurysms sac regression. Continue risk factor modification with ASA statin therapy and good blood pressure control. Follow up in 1 year with repeat aortoiliac duplex. Assessment & Plan (03/17/2023 2:16 PM CDT): Impression: Patient is status post endovascular abdominal aortic aneurysm repair on 07/14. Patient denies any abdominal, back, flank pain. Abdominal duplex reveals a stable 3.3 cm aneurysms sac. Stent grafts are patent with no endoleaks noted. Plan: Continue ongoing risk factor modifications. Patient to follow-up in 6 months for re-evaluation with repeat abdominal aortic duplex. Assessment & Plan (03/04/2022 2:52 PM CDT): Impression: Patient is status post endovascular repair of an infrarenal abdominal aortic aneurysm. CTA of abdomen pelvis reveals an abdominal aortic aneurysm sac measuring approximately 3.8 cm with no endoleak. Patient is asymptomatic. Plan: Continue ongoing risk factor modifications. Patient to follow-up in 6 months for re-evaluation with aortic duplex. Assessment & Plan (07/02/2021 2:54 PM CDT): Given his abdominal aortic aneurysm measuring 5 cm we will start with a CTA for further evaluation and I will have him follow up in the office in 1 week. I discussed the indication for treatment with the patient and his , for now we will continue to surveil his AAA until a size of 5.5 cm. Cirrhosis, nonalcoholic 06/15/2019 Assessment & Plan (07/02/2021 1:37 PM CDT): Ideally the patient would benefit from a high-intensity statin however given his liver disease we will have to hold this. Coronary artery disease invo lving [place] coronary artery of [place] heart without angina pectoris 08/26/2017 Assessment & Plan (07/02/2021 1:37 PM CDT): Continue risk factor modification with aspirin, Brilinta, and beta-maryjane. Hx of CABG 08/26/2017 History of coronary artery stent placement 08/26 Assessment & Plan (07/02/2021 1:37 PM CDT): Continue dual anti-platelet as above. Idiopathic chronic pancreatitis 07/15/2012 Immunizations Immunization Administration Dates Next Due Influenza, Quadrivalent, Helene l Culture-based MDCK, Antibiotic Free, Intramuscular 09/04/2018 Influenza, Quadrivalent, Spl it, Preservative Free, Intramuscular 11/16/2015 Influenza, Trivalent, IM (MDV) 10/23/2015 Influenza, Unspecified 11/28/2015 Tdap 01/30/2016 Social History Tobacco Use Types Packs/Day Years Used Date Smoking Tobacco: Former Cigarettes Q uit: 2008 Smokeless Tobacco: Never Tobacco Cessation:Counseling Given: Not Answered Alcohol Use Standard Drinks/Week Comments No 0 (1 standard drink = 0.6 oz pur e alcohol) AUDIT-C Answer Date Recorded Q1: How often do you have a drink containing alc ohol? Never 07/24/2021 Average Number of Drinks Not on file 021 Q3: How often do you have si x or more drinks on one occasion? Never 07/24/2021 Sex and Gender Information Value Date Recorded Sex Assigned at Not on file Legal Sex Male 7:26 AM FACULTY PHYSICIAN Gender Identity Not on file Sexual Orientation Not on file Last Filed Vital Signs Vital Sign Reading Time Taken Comments Blood Pressure 123/84 09/29/2024 9:09 AM FACULTY PHYSICIAN Pulse 80 09/29/2024 9:09 AM FACULTY PHYSICIAN Temperature 36.9 C (98.5 F) 07/25/2021 11:15 AM CDT Respiratory Rate 18 07/25/2021 8:00 AM CDT Oxygen Saturation 96% 09/29/2024 9:09 AM FACULTY PHYSICIAN Inhaled Oxygen Concentration - - Weight 74.8 kg (165 lb) 09/29/2024 9:09 AM FACULTY PHYSICIAN Height 182.9 cm (6') 09/29/2024 9:09 AM FACULTY PHYSICIAN Body Mass Index 22.38 09/29/2024 9:09 AM FACULTY PHYSICIAN Plan of Treatment Not on file Medical Devices Implanted Type Area Preprint Analyst Device Identifier Shelf Expiration Date Model / Serial / Lot Medtronic [employer] X [id number] Resolute [place] 5mm 2.1-2.7fr 30mm 140cm Rapid Exchange Radiopaque - [id number] Implanted:Qty: 1 on 05/31/2019 by Lance Gunter MD at [facility] N/A: Coronary Medtronic Inc 12/10/2019 [id number] / / [id number] Medtronic [employer] X [id number] Resolute [place] 5mm 2.1-2.7fr 30mm 140cm Rapid Exchange Radiopaque - [id number] Implanted:Qty: 1 on 05/31/2019 by Lance Gunter MD at [facility] N/A: Coronary Medtronic Inc 10/01/2020 [id number] / / [id number] Medtronic [employer] X [id number] Resolute [place] 2.5mm 2.1-2.7fr 18mm 140cm Rapid Exchange - [id number] Implanted:Qty: 1 on 05/31/2019 by Lance Gunter MD at [facility] N/A: Coronary Medtronic Inc 03/16/2020 [id number] / / [id number] Medtronic [employer] X [id number] Resolute [place] 2.75mm 2.1-2.7fr 26mm 140cm Rapid Exchange - [id number] Implanted:Qty: 1 on 05/31/2019 by Lance Gunter MD at [facility] N/A: Coronary Medtronic Inc 10/25/2020 [id number] / / [id number] Medtronic [employer] X [id number] Resolute [place] 5mm 2.1-2.7fr 18mm 140cm Rapid Exchange Radiopaque - [id number] Implanted:Qty: 1 on 05/31/2019 by Lance Gunter MD at [facility] N/A: Coronary Medtronic Inc 01/01/2020 [id number] / / [id number] [employer] Alok [id number] Graft Treo Abd Aortic Stent 28mm Bifurcate 100mm - [id number] Implanted:Qty: 1 on 07/24/2021 by Isaak Lu MD at [facility] N/A: Aorta [employer]ok [id number] 12/14/2022 28-B2-28- 100U / / [id number] Graft Treo Abd Aortic Stent 15/20mm Leg Extension 140mm - [id number] Implanted:Qty: 1 on 07/24/2021 by Isaak Lu MD at [facility] N/A: Aorta [employer]ok [id number] 04/13/2024 28-L2-20- 140U / / [id number] Graft Treo Abd Aortic Stent 15/13mm Leg Extension 120mm - [id number] Implanted:Qty: 1 on 07/24/2021 by Isaak Lu MD at [facility] N/A: Aorta [employer]ok [id number] 01/03/2024 28-L2-13- 120U / / [id number] [employer] [id number] Perclose 6fr Suture Mediate Knot Push Vascular Device Closure - [id number] Implanted:Qty: 1 on 07/24/2021 by Isaak Lu MD at [facility] [employer] [id number] / / [employer] [id number] Perclose 6fr Suture Mediate Knot Push Vascular Device Closure - [id number] Implanted:Qty: 1 on 07/24/2021 by Isaak Lu MD at [facility] [employer] [id number] / / [employer] [id number] Perclose 6fr Suture Mediate Knot Push Vascular Device Closure - [id number] Implanted:Qty: 1 on 07/24/2021 by Isaak Lu MD at [facility] [employer] [id number] / / [employer] [id number] Perclose 6fr Suture Mediate Knot Push Vascular Device Closure - [id number] Implanted:Qty: 1 on 07/24/2021 by Isaak Lu MD at [facility] [employer] [id number] / / Insurance MEDICARE [facility] Address: [address] [address] [place] [address] MEDICARE MEDICARE Advance Directives For more information, please contact: [phone] * Full Code (Latest Code Status on File) Date Activated Date Inactivated Comments 07/24/2021 12:14 PM 07/25/2021 4:06 PM * Full Code Date Activated Date Inactivated Comments 05/31/2019 8:08 PM 06/01/2019 6:38 PM * Full Code Date Activated Date Inactivated Comments 05/31/2019 8:08 PM 05/31/2019 8:08 PM Care Teams Carpenter Packing Relationship Specialty Start Date End Date Sri Fajardo MD PCP - General Family Medicine 08/14/21
--- OUTSIDE RECORDS SUMMARY | 2025-01-27 01:40 | XMS_ITS | Clinical Summary ---
Author Organization [facility] [place] [facility] [address] Address [address] [place] [address] Care Team Providers Care Shaper Setter Name Role Phone Sri Fajardo MD Primary Care Provider [phone] Allergies Active Allergy Reactions Criticality Noted Date Comments Jtrvwzu-Pqp-Lun Reductase Inhibitors Other (See comments) Low Reaction: [...] mg SL tabletIndicatio ns:Coronary artery disease involving [place] coronary artery of [place] heart without angina pectoris PLACE 1 TABLET UNDER TONGUE EVERY 5 MINS, UP TO 3 DOSES NEEDED FOR CHEST PAIN 25 tablet 1 01/18/20 25 Active Brilinta 90 mg tablet TAKE 1 TABLET BY MOUTH TWICE A DAY 180 tablet 2 01/18/20 25 Active nitroglycerin (NITROSTAT) 0.4 mg SL tabletIndicatio ns:Coronary artery disease involving [place] coronary artery of [place] heart without angina pectoris DISSOLVE 1 TABLET [...] 03/17/2023 Assessment & Plan (09/29/2024 10:12 AM INFORMATION TECHNOLOGY PROFESSOR): Recommend statin therapy. Assessment & Plan (09/16/2023 [...] 07/11/2021 Assessment & Plan (09/29/2024 10:12 AM INFORMATION TECHNOLOGY PROFESSOR): Stable continue metoprolol. Assessment & Plan (09/16/2023 [...] 07/02/2021 Assessment & Plan (09/29/2024 10:12 AM INFORMATION TECHNOLOGY PROFESSOR): Status post endovascular abdominal aortic aneurysm repair [...] hold this. Coronary artery disease invo lving [place] coronary artery of [place]ana heart without angina pectoris 08/26/2017 Assessment & [...] (MDV) 10/23/2015 Influenza, Unspecified 11/28/2015 Tdap 01/30/2016 Surgical History Surgery Date Site/Laterality Comments CHOLECYSTECTOMY APPENDECTOMY CORONARY ARTERY BYPASS GRAFT 6 US GUIDED BIOPSY LIVER 11/28/2016 N/A Medical History Medical History Date Comments Coronary artery disease Stented coronary artery Liver disease NON ALCOHOLIC CI RRHOSIS Myocardial infarction (HCC) 2020 Wears dentures UPPER AND LOWER Hyperlipidemia Family History Medical History Relation Name Comments Heart attack Brother Hypertension Maternal Grandmother Liver disease Maternal Grandmother Diabetes Mother Heart disease Mother Hyperlipidemia Mother Relation Name Status Comments Brother Father Maternal Grandmother Mother Social History Tobacco Use Types Packs/Day Years [...] on file Legal Sex Male 7:26 AM INFORMATION TECHNOLOGY PROFESSOR Gender Identity Not on file Sexual Orientation Not on file Obstetrics History Last Filed Vital Signs Vital Sign Reading Time Taken Comments Blood Pressure 123/84 09/29/2024 9:09 AM INFORMATION TECHNOLOGY PROFESSOR Pulse 80 09/29/2024 9:09 AM INFORMATION TECHNOLOGY PROFESSOR Temperature 36.9 C (98.5 F) 07/25/2021 11:15 AM CDT Respiratory Rate 18 07/25/2021 8:00 AM CDT Oxygen Saturation 96% 09/29/2024 9:09 AM INFORMATION TECHNOLOGY PROFESSOR Inhaled Oxygen Concentration - - Weight 74.8 kg (165 lb) 09/29/2024 9:09 AM INFORMATION TECHNOLOGY PROFESSOR Height 182.9 cm (6') 09/29/2024 9:09 AM INFORMATION TECHNOLOGY PROFESSOR Body Mass Index 22.38 09/29/2024 9:09 AM INFORMATION TECHNOLOGY PROFESSOR Plan of Treatment Health Maintenance Due Date Last Done Comments Colon Cancer Screening-Colonoscopy 1960 Depression Screening 1960 Hepatitis C Screening 1960 Prostate Cancer Screening-PSA 1960 Hepatitis B Screening 1978 Regular Well Visit/Exam 18-64 1978 Pneumococcal vaccine <65 (1 of 2 - PCV) 1979 Zoster Vaccine (1 of 2) 2010 Influenza Vaccine (#1) 2024 8, 11/28/2015, 11/16/2015, Additional history exists DTaP/Tdap/Td Vaccine (2 - Td or Tdap) 01/29/2026 01/30/2016 Medical Devices Implanted Type Area Strip Machine Operator Device Identifier Shelf Expiration Date Model / Serial / Lot Medtronic Usa [employer] X [id number] Resolute [place] 5mm 2.1-2.7fr 30mm 140cm Rapid Exchange Radiopaque - [id number] Implanted:Qty: 1 on 05/31/2019 by Lance Gunter MD at [facility] N/A: Coronary Medtronic Inc 12/10/2019 [id number] / / [id number] Medtronic [employer] X [id number] Resolute [place] 5mm 2.1-2.7fr 30mm 140cm Rapid Exchange Radiopaque - [id number] Implanted:Qty: 1 on 05/31/2019 by Lance Gunter MD at [facility] N/A: Coronary Medtronic Inc 10/01/2020 [id number] 0UX / / [id number] Medtronic [employer] X [id number] Resolute [place] 2.5mm 2.1-2.7fr 18mm 140cm Rapid Exchange - [id number] Implanted:Qty: 1 on 05/31/2019 by Lance Gunter MD at [facility] N/A: Coronary Medtronic Inc 03/16/2020 [id number] 8UX / / [id number] Medtronic [employer] X [id number] Resolute [place] 2.75mm 2.1-2.7fr 26mm 140cm Rapid Exchange - [id number] Implanted:Qty: 1 on 05/31/2019 by Lance Gunter MD at [facility] N/A: Coronary Medtronic Inc 10/25/2020 [id number] / / [id number] Medtronic [employer] X [id number] Resolute [place] 5mm 2.1-2.7fr 18mm 140cm Rapid Exchange Radiopaque - [id number] Implanted:Qty: 1 on 05/31/2019 by Lance Gunter MD at [facility] N/A: Coronary Medtronic Inc 01/01/2020 [id number] / / [id number] [employer]ok [id number] Graft Treo Abd Aortic Stent 28mm Bifurcate 100mm - [id number] Implanted:Qty: 1 on 07/24/2021 by Isaak Lu MD at [facility] N/A: Aorta [employer]ok [id number] 12/14/2022 28-B2-28- 100U / / [id number] Graft Treo Abd Aortic Stent 15/20mm Leg Extension 140mm - [id number] Implanted:Qty: 1 on 07/24/2021 by Isaak Lu MD at [facility] N/A: Aorta [employer]ok [id number] 04/13/2024 28-L2-20- 140U / / [id number] Graft Treo Abd Aortic Stent 15/13mm Leg Extension 120mm - [id number] Implanted:Qty: 1 on 07/24/2021 by Isaak Lu MD at [facility] N/A: Aorta [employer]ok [id number] 01/03/2024 28-L2-13- 120U / / [id number] [employer] [id number] Perclose 6fr Suture Mediate Knot Push Vascular Device Closure - [id number] Implanted:Qty: 1 on 07/24/2021 by Isaak Lu MD at [facility] [employer] [id number] / / [employer] [id number] Perclose 6fr Suture Mediate Knot Push Vascular Device Closure - [id number] Implanted:Qty: 1 on 07/24/2021 by Isaak Lu MD at [facility] [employer] [id number] / / [employer] [id number] Perclose 6fr Suture Mediate Knot Push Vascular Device Closure - [id number] Implanted:Qty: 1 on 07/24/2021 by Isaak Lu MD at [facility] [employer] [id number] / / [employer] [id number] Perclose 6fr Suture Mediate Knot Push Vascular Device Closure - [id number] Implanted:Qty: 1 on 07/24/2021 by Isaak Lu MD at [facility] Vascular [id number] / / Insurance MEDICARE MEDICARE MEDICARE Advance Directives For more information, please contact: [phone] * Full Code (Latest Code Status on File) Date Activated Date Inactivated Comments 07/24/2021 12:14 PM 07/25/2021 4:06 PM * Full Code Date Activated Date Inactivated Comments 05/31/2019 8:08 PM 06/01/2019 6:38 PM * Full Code Date Activated Date Inactivated Comments 05/31/2019 8:08 PM 05/31/2019 8:08 PM Care Teams Shaper Setter Relationship Specialty Start Date End Date Sri Fajardo MD PCP - General Family Medicine 08/14/21
--- OUTSIDE RECORDS SUMMARY | 2025-01-27 01:41 | XMS_ITS | Encounter Summary ---
Author Organization [facility] Address [address] [place] [address] Care Team Providers Care Flat Lock Operator Name Role Phone Loreta Lopez MD Primary Care Provider [phone] Sri Fajardo MD Primary Care Provider [phone] Encounter Details Date Type Department Care Team (Late st Contact Info) Description 07/24/[address] [address] Rafa Barnett RN Social History Tobacco Use Types Packs/Day Years Used Date Smoking Tobacco: Former Cigarettes Q uit: 2008 Smokeless Tobacco: Never Alcohol Use Standard Drinks/Week Comments No 0 [...] on file Legal Sex Male 7:26 AM BATTING MACHINE OPERATOR Gender Identity Not on file Sexual Orientation Not on file documented as of this encounter Functional Status documented as of this encounter Plan of Treatment Not on file documented as of this encounter Visit Diagnoses Not on filedocumented in this encounter Care Teams Flat Lock Operator Relationship Specialty Start Date End Date Loreta Lopez MD PCP - General 07/21/21 08/13/21 Sri Fajardo MD PCP - General Family Medicine 08/14/21 documented as of this encounter
--- OUTSIDE RECORDS SUMMARY | 2025-01-27 01:41 | XMS_ITS | Clinical Summary ---
Author Organization [facility] Address [address] [place] [address] Phone Care Team Providers Care Real Estate Administrative Assistant Name Role Phone Alexander Wiggins MD Primary Care Provider [phone] Inessa Guidry APRN, ASSET PROTECTION PROFESSIONAL Unavailable [phone] Allergies No known active allergies Medications Rumsey-3 Fatty Acids (FISH OIL) 1000 MG CAPSULE DELAYED RELEASE Take 1,000 mg by mouth daily. Active niacin-lovastat in (ADVICOR) 1000-20 MG TABLET SR 24 HR Take 1 Tab by mouth daily. Active nitroGLYCERIN (NITROSTAT) 0.3 MG SL Tablet 0.3 mg by Sublingual route every 5 minutes as needed for Chest pain. Active HYDROcodone-micah taminophen (NORCO) 7.5-325 MG Tablet Take 1 Tab by mouth every 6 hours as needed for Pain. Active aspirin EC 81 MG Tablet Delayed Response Take 81 mg by mouth daily. Active pantoprazole (PROTONIX) 40 MG Tablet Delayed Response Take 40 mg by mouth daily. Active pancrelipase, lipase-protease -amylase, (CREON 6000) 6000-UNIT Capsule DR Particles Take 1 Cap by mouth 3 times daily (with meals). Active ticagrelor (BRILINTA) 90 MG Tablet Take 90 mg by mouth 2 times daily. Active atenolol (TENORMIN) 50 MG Tablet Take 50 mg by mouth daily. Active Immunizations Immunization Administration Dates Next Due Influenza Vaccine greater than 3 yrs 10/23/2015 Family History Medical History Relation Name Comments Heart Disease Father Diabetes Mother Heart Disease Mother Relation Name Status Comments Father Mother Social History Tobacco Use Types Packs/Day Years Used Date Smoking Tobacco: Former Cigarettes Alcohol Use Standard Drinks/Week Comments No 0 (1 standard drink = 0.6 oz pur e alcohol) none Sex and Gender Information Value Date Recorded Sex Assigned at Not on file Legal Sex Male 1:22 PM CDT Gender Identity Not on file Sexual Orientation Not on file 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 file Not on file Not on file Last Filed Vital Signs Vital Sign Reading Time Taken Comments Blood Pressure 122/70 11/28/2016 10:30 AM CISSP Pulse 64 11/28/2016 10:30 AM CISSP Temperature 35.6 C (96.1 F) 11/28/2016 10:30 AM CISSP Respiratory Rate 18 11/28/2016 10:30 AM CISSP Oxygen Saturation 96% 11/28/2016 10:30 AM CISSP Inhaled Oxygen Concentration - - Weight 84.8 kg (187 lb) 10/31/2016 8:22 AM CISSP Height 185.4 cm (6' 1 ) 10/31/2016 8:22 AM CISSP Body Mass Index 24.67 10/31/2016 8:22 AM CISSP Plan of Treatment Health Maintenance Due Date Last Done Comments Hepatitis C Virus (HCV) Screening 1960 TdaP Immunization 1960 Colonoscopy 2005 Colorectal Cancer Screening 2005 Cologuard 2010 Immunochemical Fecal Occult Blood 2010 Pneumococcal Immunization (5 0+ years) (1 of 1 - PCV) 2010 Zoster Immunization (1 of 2) 2010 PSA Discussion 2015 Influenza Immunization (#1) 2024 10/23/2015 SARS-COV-2 Immunization ( - 2023- season) 2024 Respiratory Syncytial Virus (RSV) Immunization (Adult) (1 - 1-dose 75+ series) 2035 Hepatitis B Immunization Aged Out No longer eligible based on patient's age to complete this topic Meningococcal Immunization (ACWY) Aged Out No longer eligible based on patient's age to complete this topic Pneumococcal Immunization Combined Aged Out No longer eligible based on patient's age to complete this topic Rotavirus Immunization Aged Out No lo nger eligible based on patient's age to complete this topic Insurance MEDICARE Care Teams Real Estate Administrative Assistant Relationship Specialty Start Date End Date Alexander Wiggins MD [address] [place] [id number] PCP - General Family Medicine 05/22/16 Inessa Guidry, SPEEDBOAT DRIVER, ASSET PROTECTION PROFESSIONAL [address] [place] [address] Nurse Practitioner Advanced Practice Nurse 05/23/16
--- NOTE | 2025-01-27 01:59 | ED.GENADULT ---
HPI - General Adult General Chief complaint: Back Pain/Injury Stated complaint: My back and spine are hurting Time Seen by Provider: 01/27/25 01:49 History of Present Illness HPI narrative: Patient's is 64-year-old gentleman presents emergency department with chief complaint of back pain. Patient reports that he has history of chronic back pain reports that it gets worse whenever there is range and snow. The patient states for the last couple days has been getting worse and reports that tonight it was really bad. The patient denies paresthesias denies bowel or bladder incontinence denies footdrop. Related Data Home Medications ?Medication ?Instructions ?Recorded ?Confirmed ?Last Taken ?Type metoprolol succinate 50 mg 50 mg PO DAILY 11/29/19 10/06/24 Unknown History tablet,extended release 24 hr nitroglycerin 6.5 mg 6.5 mg PO DAILY 11/29/19 10/06/24 Unknown History capsule,extended release ticagrelor 90 mg tablet (Brilinta) 90 mg PO Q12H 11/29/19 10/06/24 Unknown History evolocumab 140 mg/mL subcutaneous 140 mg subcut [id number] 12/31/19 10/06/24 01/03/20 09:00 History pen injector (Repatha SureBoydick) isosorbide mononitrate 30 mg 30 mg PO DAILY 12/31/19 10/06/24 Unknown History tablet,extended release 24 hr omega-3 fatty acids 1,000 mg 1,000 mg PO DAILY 12/31/19 10/06/24 Unknown History capsule aspirin 81 mg tablet,delayed 81 mg PO DAILY 01/03/20 10/06/24 Unknown History release (Adult Low Dose Aspirin) famotidine 40 mg tablet (Pepcid) 40 mg PO DAILY 11/06/21 10/06/24 Unknown History Allergies Allergy/AdvReac Type Severity Reaction Status Date / Time Egemrkq-WDX-ZsO Reductase Allergy Unknown Unknown Verified 01/27/25 01:42 Inhibitor (Vqtzngl-Kvj-Gdm Reductase Inhibitor) Review of Systems Review of Systems: A 10 system review of systems was completed on the patient and is negative except for what is stated in the HPI. Nursing and ancillary documentation was reviewed. [facility] Past Medical History Medical History Prediabetes Low serum iron Chronic, continuous use of opioids Cirrhosis Previous liver biopsy confirming diagnosis. Apparently cryptogenic in etiology. GERD (gastroesophageal reflux disease) History of rectal polyps TIA (transient ischemic attack) Coronary artery disease Patient with history of premature coronary artery disease in his 40s. He is status post multivessel CABG. On several occasions he was taken to cardiac catheterization lab per Dr. Champion, and due to his complex disease he has at times required intervention at [place]. Chronic pancreatitis Hyperlipidemia Hypertension Surgical History Surgical History Status post appendectomy, follow-up exam Status post coronary artery bypass graft Hx of cardiac catheterization Last cardiac catheterization at this facility was May 31, [address] Champion. At that time it was noted that he had a patent stent to the circumflex. SVG to the OM and diagonal were apparently occluded. Juarez to LAD was patent. There was severe stenosis to a very large caliber vein graft to the RCA with 95 to 99% stenosis. This was deemed to be too high risk and he was transferred to [place], where a total of 6 stents were placed. History of tonsillectomy History of cholecystectomy History of heart artery stent x6 Family History Family History Mother Family history of cardiovascular disease Diabetes mellitus Myocardial infarct Sibling Diabetes mellitus Pancreatitis Social History Social History Social History: The patient lives in [place] with his . He designates his as his surrogate decision maker and he wishes to be a full code. 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 His primary care provider is Dr. Loreta Padilla. He smoked 1 to 2 cigars a day but quit in 2008 after his bypass. No alcohol or drug abuse. Smoking status: Former smoker (Quit 1989) Tobacco type: cigars Smoking end date: 06/24/09 Alcohol intake: never Substance use: never Substance use type: does not use Lack of Transportation: No Lack of Food: Never True Current Housing: I Have Housing Concerned About Future Housing: No Difficulty Paying Gas/Electric Bills: No Difficulty Paying for Meds: No Currently Unemployed: No Education: Trade/Vocational Certificate Difficulty w/ Childcare or Family Care: No Living arrangements: with family Additional living arrangements comments: Lives with . Occupation/Education: retired Gender identity (if verbalized by the patient): Male Sexual Orientation (if Verbalized by the Patient): Straight or Heterosexual Spiritual care concerns: No Agree to blood products: Yes Exam Narrative: GENERAL: Well-appearing, well-nourished, and in no acute distress. HEAD: Normocephalic, atraumatic. EYES: PERRLA and EOMI. ENT: Nares clear, no rhinorrhea or epistaxis. Mucous membranes moist. NECK: Supple. CHEST: Clear to auscultation. No respiratory distress. HEART: Regular rate and rhythm. No murmur heard. Normal peripheral pulses. ABDOMEN: Soft, nontender, nondistended, normal active bowel sounds. EXTREMITIES: Normal range of motion. No edema. SKIN: Warm, dry, no rash. NEURO: No focal deficits. Alert and oriented x3. No footdrop no saddle anesthesia PSYCH: Normal mood and affect. Course Vital Signs Vital signs: Vital Signs Temperature 36.4 C L 01/27/25 01:48 Pulse Rate 73 01/27/25 01:48 Respiratory Rate 16 01/27/25 01:48 Blood Pressure 153/105 H 01/27/25 01:48 Pulse Oximetry 99 01/27/25 01:48 Oxygen Delivery Room Air 01/27/25 01:48 Temperature 36.4 C L 01/27/25 01:48 Pulse Rate 73 01/27/25 01:48 Respiratory Rate 16 01/27/25 01:48 Blood Pressure 153/105 H 01/27/25 01:48 Pulse Oximetry 99 01/27/25 01:48 Oxygen Delivery Room Air 01/27/25 01:48 Medical Decision Making [facility] Narrative Medical decision making narrative: Differential diagnosis includes lumbar strain, thoracic strain, fracture Plain film x-rays were obtained of the thoracic and lumbar spine. These showed no evidence of fracture The patient was given muscle relaxers pain medications and steroids the patient be discharged home on a muscle relaxer and steroid Vital Signs Vital Signs: Vital Signs Temperature 36.4 C L 01/27/25 01:48 Pulse Rate 73 01/27/25 01:48 Respiratory Rate 16 01/27/25 01:48 Blood Pressure 153/105 H 01/27/25 01:48 Pulse Oximetry 99 01/27/25 01:48 Oxygen Delivery Room Air 01/27/25 01:48 Temperature 36.4 C L 01/27/25 01:48 Pulse Rate 73 01/27/25 01:48 Respiratory Rate 16 01/27/25 01:48 Blood Pressure 153/105 H 01/27/25 01:48 Pulse Oximetry 99 01/27/25 01:48 Oxygen Delivery Room Air 01/27/25 01:48 Discharge Plan Discharge Clinical Impression: Back pain Patient Disposition: Home, Self-Care Condition: Stable Instructions: Antibiotic Form, Back Pain (ED) Patient Language: Honduran Prescriptions: New prednisone 20 mg tablet 40 mg PO DAILY 5 Days Qty: 10 0RF orphenadrine citrate 100 mg tablet extended release 100 mg PO Q12H PRN (Reason: muscle pain) 10 Days Qty: 20 0RF No Action Repatha SureClick 140 mg/mL pen injector 140 mg SUB-Q [id number] Rx Instructions: SUBQ EVERY TWO WEEKS. isosorbide mononitrate 30 mg tablet extended release 24 hr 30 mg PO DAILY omega-3 fatty acids 1,000 mg capsule 1,000 mg PO DAILY famotidine [Pepcid] 40 mg tablet 40 mg PO DAILY montelukast 10 mg tablet 10 mg PO QHS Qty: 30 3RF aspirin [Adult Low Dose Aspirin] 81 mg Tablet,Delayed Release (Dr/Ec) 81 mg PO DAILY Brilinta 90 mg tablet 90 mg PO Q12H Rx Instructions: take 1 tablet by oral route 2 times every day metoprolol succinate 50 mg tablet extended release 24 hr 50 mg PO DAILY nitroglycerin 6.5 mg capsule, extended release 6.5 mg PO DAILY ergocalciferol (vitamin D2) 1,250 mcg (50,000 unit) capsule 1,250 mcg PO WEEKLY Qty: 14 3RF Creon 6,000-19,000 -30,000 unit capsule,delayed release(DR/EC) 1 cap PO TID Qty: 270 0RF niacin 1,000 mg tablet extended release 24 hr 1,000 mg PO .at bedtime Qty: 90 1RF hydrocodone-acetaminophen 7.5-325 mg tablet 1 tablet PO Q6H PRN (Reason: pain) Qty: 120 0RF Follow-up/Referrals: Sri Fajardo MD [Primary Care Provider] - Time of Disposition: 02:33
[2025-01-27] MEDS: ORPHENADRINE CITRATE 100 MG TABLET.ER PO (02:03)
[2025-01-27] MEDS: HYDROcodone/acetaminophen (*CRX) 5-325 MG TABLET 1 TAB PO (02:03)
[2025-01-27] MEDS: predniSONE 20 MG TABLET 60 MG PO (02:03)
--- OUTSIDE RECORDS SUMMARY | 2025-01-27 02:30 | XMS_ITS | Clinical Summary ---
Author Organization [facility] Address [address] [facility] Attn: Epic Prelude ADT LUCY [place] [address] Care Team Providers Care Voice Studies Director Name Role Phone Unavailable Primary Care Provider [...] days 2 mL 11 01/24/2025 2:16 PM RESTAURANT HOURLY TEAM MEMBER 4 Active Encounters Date Type Department Care [...]
--- OUTSIDE RECORDS SUMMARY | 2025-01-27 02:30 | XMS_ITS | Encounter Summary ---
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
--- OUTSIDE RECORDS SUMMARY | 2025-01-27 02:30 | XMS_ITS | Referral Summary ---
Author Organization [facility] [address] Address [address] [place] [address] Care Team Providers Care School Operations Manager Name Role Phone Sri Fajardo MD Primary Care Provider [phone] Allergies Active Allergy Reactions Criticality Noted Date Comments Algqujg-Wqw-Asr Reductase Inhibitors Other (See comments) Low Reaction: [...] mg SL tabletIndicatio ns:Coronary artery disease involving [place] coronary artery of [place] heart without angina pectoris PLACE 1 TABLET UNDER TONGUE EVERY 5 MINS, UP TO 3 DOSES NEEDED FOR CHEST PAIN 25 tablet 1 01/18/20 25 Active Brilinta 90 mg tablet TAKE 1 TABLET BY MOUTH TWICE A DAY 180 tablet 2 01/18/20 25 Active nitroglycerin (NITROSTAT) 0.4 mg SL tabletIndicatio ns:Coronary artery disease involving [place] coronary artery of [place] heart without angina pectoris DISSOLVE 1 TABLET [...] 03/17/2023 Assessment & Plan (09/29/2024 10:12 AM UNDERWRITING CLERK): Recommend statin therapy. Assessment & Plan (09/16/2023 [...] 07/11/2021 Assessment & Plan (09/29/2024 10:12 AM UNDERWRITING CLERK): Stable continue metoprolol. Assessment & Plan (09/16/2023 [...] 07/02/2021 Assessment & Plan (09/29/2024 10:12 AM UNDERWRITING CLERK): Status post endovascular abdominal aortic aneurysm repair [...] hold this. Coronary artery disease invo lving [place] coronary artery of [place] heart without angina pectoris 08/26/2017 Assessment & [...] on file Legal Sex Male 7:26 AM UNDERWRITING CLERK Gender Identity Not on file Sexual Orientation Not on file Last Filed Vital Signs Vital Sign Reading Time Taken Comments Blood Pressure 123/84 09/29/2024 9:09 AM UNDERWRITING CLERK Pulse 80 09/29/2024 9:09 AM UNDERWRITING CLERK Temperature 36.9 C (98.5 F) 07/25/2021 11:15 AM CDT Respiratory Rate 18 07/25/2021 8:00 AM CDT Oxygen Saturation 96% 09/29/2024 9:09 AM UNDERWRITING CLERK Inhaled Oxygen Concentration - - Weight 74.8 kg (165 lb) 09/29/2024 9:09 AM UNDERWRITING CLERK Height 182.9 cm (6') 09/29/2024 9:09 AM UNDERWRITING CLERK Body Mass Index 22.38 09/29/2024 9:09 AM UNDERWRITING CLERK Plan of Treatment Not on file Medical Devices Implanted Type Area Mud Analysis Well Logging Captain Device Identifier Shelf Expiration Date Model / Serial / Lot [employer]onic [employer] X [id number] Resolute [place] 5mm 2.1-2.7fr 30mm 140cm Rapid Exchange Radiopaque - [id number] Implanted:Qty: 1 on 05/31/2019 by Lance Gunter MD at [facility] N/A: Coronary Medtronic Inc 12/10/2019 [id number] / / [id number] [employer] X [id number] Resolute Miguel 5mm 2.1-2.7fr 30mm 140cm Rapid Exchange Radiopaque - [id number] Implanted:Qty: 1 on 05/31/2019 by Lance Gunter MD at [facility] N/A: Coronary Med[employer]onic Inc 10/01/2020 [id number] / / [id number] [employer] X [id number] Resolute Miguel 2.5mm 2.1-2.7fr 18mm 140cm Rapid Exchange - [id number] Implanted:Qty: 1 on 05/31/2019 by Lance Gunter MD at [facility] N/A: Coronary Medtronic Inc 03/16/2020 [id number] / / [id number] [employer] X [id number] Resolute [place] 2.75mm 2.1-2.7fr 26mm 140cm Rapid Exchange - [id number] Implanted:Qty: 1 on 05/31/2019 by Lance Gunter MD at [facility] N/A: Coronary Medtronic Inc 10/25/2020 [id number] / / [id number] [employer] X [id number] Resolute Miguel 5mm 2.1-2.7fr 18mm 140cm Rapid Exchange Radiopaque - [id number] Implanted:Qty: 1 on 05/31/2019 by Lance Gunter MD at [facility] N/A: Coronary Medtronic Inc 01/01/2020 [id number] / / [id number] [employer]ok 27-E7-12-100u Graft Treo Abd Aortic Stent 28mm Bifurcate 100mm - [id number] Implanted:Qty: 1 on 07/24/2021 by Isaak Lu MD at [facility] N/A: Aorta [employer] [id number] 12/14/2022 28-B2-28- 100U / / [id number] Graft Treo Abd Aortic Stent 15/20mm Leg Extension 140mm - [id number] Implanted:Qty: 1 on 07/24/2021 by Isaak Lu MD at [facility] N/A: Aorta [employer] [id number] 04/13/2024 28-L2-20- 140U / / [id number] Graft Treo Abd Aortic Stent 15/13mm Leg Extension 120mm - [id number] Implanted:Qty: 1 on 07/24/2021 by Isaak Lu MD at [facility] N/A: Aorta [employer] [id number] 01/03/2024 28-L2-13- 120U / / [id number] [employer] [id number] Perclose 6fr Suture Mediate Knot Push Vascular Device Closure - [id number] Implanted:Qty: 1 on 07/24/2021 by Isaak Lu MD at [facility] [employer] [id number] / / [employer] [id number] Perclose 6fr Suture Mediate Knot Push Vascular Device Closure - [id number] Implanted:Qty: 1 on 07/24/2021 by Isaak Lu MD at [facility] [employer] [id number] / / [employer] [id number] Perclose 6fr Suture Mediate Knot Push Vascular Device Closure - [id number] Implanted:Qty: 1 on 07/24/2021 by Isaak Lu MD at [facility] [employer] [id number] / / [employer] [id number] Perclose 6fr Suture Mediate Knot Push Vascular Device Closure - [id number] Implanted:Qty: 1 on 07/24/2021 by Isaak Lu MD at [facility] [employer] [id number] / / Insurance MEDICARE MEDICARE MEDICARE Advance Directives For more information, please contact: [phone] * Full Code (Latest Code Status on File) Date Activated Date Inactivated Comments 07/24/2021 12:14 PM 07/25/2021 4:06 PM * Full Code Date Activated Date Inactivated Comments 05/31/2019 8:08 PM 06/01/2019 6:38 PM * Full Code Date Activated Date Inactivated Comments 05/31/2019 8:08 PM 05/31/2019 8:08 PM Care Teams School Operations Manager Relationship Specialty Start Date End Date Sri Fajardo MD PCP - General Family Medicine 08/14/21
--- OUTSIDE RECORDS SUMMARY | 2025-01-27 02:30 | XMS_ITS | Patient Health Record ---
Author Organization [facility] Address [address] [place] [address] Care Team Providers Care Smoke Inspector Name Role Phone Justen Chappell Primary Care Provider [phone] Willis [place] Unavailable [phone] Allergies Allergen (clinical drug ingredient) Drug/Non Drug Allergy documented on EMR Reaction Allergy Type Onset Date Status Substance with 5-kdzbqhu-7-methylgluta ryl-coenzyme A reductase inhibitor mechanism of action (substance) Statins (uncoded) Unknown Allergy Active Reason For Referral No Information Medications Medication SIG (Take, Route, Frequency, Duration) Notes Start Date End Date Status Nitroglycerin 0.3 MG 1 tablet Sublingual Once a day as needed for 90 days 01/03/2015 Active Atenolol 50 MG TAKE ONE TABLET BY MOUTH EVERY DAY FOR 90 DAYS Active Niacin ER (Antihyperlipidemic) 1000 MG TAKE ONE TABLET BY MOUTH EVERY DAY Active Creon 6000 UNIT TAKE 1 CAPSULE BY MOUTH 3 TIMES A DAY WITH FOOD 30 DAYS Active Brilinta 90 MG 1 tablet Orally Twic e a day Active Omeprazole 40 MG 1 capsule Orally Onc e a day for 90 days 12/11/2015 Active Omeprazole 20 MG 1 capsule Orally Onc e a day for 90 days 01/05/2015 Not-Taking Aspirin Adult Low Strength 81 MG take 1 tablet (81MG) by oral route every day Oral 05/31/2013 Active Multivitamin take 1 capsule by or al route every day Active Niacin ER 1000 MG TAKE ONE TABLET BY MOUTH EVERY DAY Active Pantoprazole Sodium 40 MG 1 tablet Orall y Once a day for 90 days 01/11/2016 Active Problems Problem Type SNOMED Code ICD Code Onset Dates Problem Status W/U Status Risk Notes Problem Essential hypertension (79528999) Unspecified essential hypertension (401.9) Active confirmed ([facility] ) Added By: Domonique Rodríguez Problem Atherosclerosis of coronary artery (528351747) Coronary atherosclerosis of unspecified type of vessel, [place] or graft (414.00) Active confirmed ([facility] ) Added By: Domonique Rodríguez Problem Chronic pancreatitis (836884824) Chronic pancreatitis (577.1) Active confirmed ([facility] ) Added By: Domonique Prietoer Problem 89330179 Essential hypertension (I10) Active confirmed Problem 458918391 Gastroesophageal reflux disease, esophagitis presence not specified (K21.9) Active confirmed Problem 9197929193011 Atherosclerosis of [place] coronary artery of [place] heart without angina pectoris (I25.10) Active confirmed Problem 426521039 Chronic pancreatitis, unspecified pancreatitis type (K86.1) Active confirmed Problem 765583392 Idiopathic chron ic pancreatitis (K86.1) Active confirmed Plan Of Treatment No Information Insurance Providers Payer Name Payer Address Payer Phone Subscriber Number Group Number Insured Name Patient Relationship to Insured Coverage Start Date Coverage End Date Medicare NGS [address] [place], [place] [id number] Kashif Rhodes Self - patient is the insured 4 Medicare Part B [address] [place], [place] [id number] Kashif Rhodes Self - patient is the insured 3 Medical (General) History Medical History History ICD Code hypertension Chronic pancreatitis CAD Surgical History Surgery Date(Month/Year) Colonoscopy 2013 Coronary artery bypass graft (CABG) Appendectomy Heart stent 11/2015 Hospitalization History Reason Date(Month/Year) Heart stent/heart attack 11/2015
--- OUTSIDE RECORDS SUMMARY | 2025-01-27 02:30 | XMS_ITS | Clinical Summary ---
Author Organization [facility] [address] Address [address] [place] [address] Care Team Providers Care Gymnastics Instructor Name Role Phone Sri Fajardo MD Primary Care Provider [phone] Allergies Active Allergy Reactions Criticality Noted Date Comments Klhxmvu-Ago-Qbm Reductase Inhibitors Other (See comments) Low Reaction: [...] mg SL tabletIndicatio ns:Coronary artery disease involving [place] coronary artery of [place] heart without angina pectoris PLACE 1 TABLET UNDER TONGUE EVERY 5 MINS, UP TO 3 DOSES NEEDED FOR CHEST PAIN 25 tablet 1 01/18/20 25 Active Brilinta 90 mg tablet TAKE 1 TABLET BY MOUTH TWICE A DAY 180 tablet 2 01/18/20 25 Active nitroglycerin (NITROSTAT) 0.4 mg SL tabletIndicatio ns:Coronary artery disease involving [place] coronary artery of [place] heart without angina pectoris DISSOLVE 1 TABLET [...] 03/17/2023 Assessment & Plan (09/29/2024 10:12 AM GREEN BUILDING ARCHITECT): Recommend statin therapy. Assessment & Plan (09/16/2023 [...] 07/11/2021 Assessment & Plan (09/29/2024 10:12 AM GREEN BUILDING ARCHITECT): Stable continue metoprolol. Assessment & Plan (09/16/2023 [...] 07/02/2021 Assessment & Plan (09/29/2024 10:12 AM GREEN BUILDING ARCHITECT): Status post endovascular abdominal aortic aneurysm repair [...] hold this. Coronary artery disease invo lving [place] coronary artery of [place] heart without angina pectoris 08/26/2017 Assessment & [...] on file Legal Sex Male 7:26 AM GREEN BUILDING ARCHITECT Gender Identity Not on file Sexual Orientation Not on file Obstetrics History Last Filed Vital Signs Vital Sign Reading Time Taken Comments Blood Pressure 123/84 09/29/2024 9:09 AM GREEN BUILDING ARCHITECT Pulse 80 09/29/2024 9:09 AM GREEN BUILDING ARCHITECT Temperature 36.9 C (98.5 F) 07/25/2021 11:15 AM CDT Respiratory Rate 18 07/25/2021 8:00 AM CDT Oxygen Saturation 96% 09/29/2024 9:09 AM GREEN BUILDING ARCHITECT Inhaled Oxygen Concentration - - Weight 74.8 kg (165 lb) 09/29/2024 9:09 AM GREEN BUILDING ARCHITECT Height 182.9 cm (6') 09/29/2024 9:09 AM GREEN BUILDING ARCHITECT Body Mass Index 22.38 09/29/2024 9:09 AM GREEN BUILDING ARCHITECT Plan of Treatment Health Maintenance Due Date [...] 01/29/2026 01/30/2016 Medical Devices Implanted Type Area Industrial Cook Device Identifier Shelf Expiration Date Model / Serial / Lot Med[employer] X [id number] Resolute Miguel 5mm 2.1-2.7fr 30mm 140cm Rapid Exchange Radiopaque - [id number] Implanted:Qty: 1 on 05/31/2019 by Lance Gunter MD at [facility] N/A: Coronary Medtronic Inc 12/10/2019 [id number] / / [id number] [employer] X [id number] Resolute Miguel 5mm 2.1-2.7fr 30mm 140cm Rapid Exchange Radiopaque - [id number] Implanted:Qty: 1 on 05/31/2019 by Lance Gunter MD at [facility] N/A: Coronary Medtronic Inc 10/01/2020 [id number] / / [id number] [employer] X [id number] Resolute Miguel 2.5mm 2.1-2.7fr 18mm 140cm Rapid Exchange - [id number] Implanted:Qty: 1 on 05/31/2019 by Lance Gunter MD at [facility] N/A: Coronary Medtronic Inc 03/16/2020 [id number] / / [id number] [employer] X [id number] Resolute [place] 2.75mm 2.1-2.7fr 26mm 140cm Rapid Exchange - [id number] Implanted:Qty: 1 on 05/31/2019 by Lance Gunter MD at [facility] N/A: Coronary Medtronic Inc 10/25/2020 [id number] / / [id number] [employer] X [id number] Resolute Miguel 5mm 2.1-2.7fr 18mm 140cm Rapid Exchange Radiopaque - [id number] Implanted:Qty: 1 on 05/31/2019 by Lance Gunter MD at [facility] N/A: Coronary Medtronic Inc 01/01/2020 [id number] / / [id number] [employer] Alok [id number] Graft Treo Abd Aortic Stent 28mm Bifurcate 100mm - [id number] Implanted:Qty: 1 on 07/24/2021 by Isaak Lu MD at [facility] N/A: Aorta [employer] [id number] 12/14/2022 28-B2-28- 100U / / [id number] Graft Treo Abd Aortic Stent 15/20mm Leg Extension 140mm - [id number] Implanted:Qty: 1 on 07/24/2021 by Isaak Lu MD at [facility] N/A: Aorta [employer]ok [id number] 04/13/2024 28-L2-20- 140U / / [id number] Graft Treo Abd Aortic Stent 15/13mm Leg Extension 120mm - [id number] Implanted:Qty: 1 on 07/24/2021 by Isaak Lu MD at [facility] N/A: Aorta [employer]ok [id number] 01/03/2024 28-L2-13- 120U / / [id number] [employer] [id number] Perclose 6fr Suture Mediate Knot Push Vascular Device Closure - [id number] Implanted:Qty: 1 on 07/24/2021 by Isaak Lu MD at [facility] [employer] [id number] / / [employer] [id number] Perclose 6fr Suture Mediate Knot Push Vascular Device Closure - [id number] Implanted:Qty: 1 on 07/24/2021 by Isaak Lu MD at [facility] [employer] [id number] / / [employer] [id number] Perclose 6fr Suture Mediate Knot Push Vascular Device Closure - [id number] Implanted:Qty: 1 on 07/24/2021 by Isaak Lu MD at [facility] [employer] [id number] / / [employer] [id number] Perclose 6fr Suture Mediate Knot Push Vascular Device Closure - [id number] Implanted:Qty: 1 on 07/24/2021 by Isaak Lu MD at [facility] Vascular [id number] / / Insurance MEDICARE MEDICARE MEDICARE Advance Directives For more information, please contact: [phone] * Full Code (Latest Code Status on File) Date Activated Date Inactivated Comments 07/24/2021 12:14 PM 07/25/2021 4:06 PM * Full Code Date Activated Date Inactivated Comments 05/31/2019 8:08 PM 06/01/2019 6:38 PM * Full Code Date Activated Date Inactivated Comments 05/31/2019 8:08 PM 05/31/2019 8:08 PM Care Teams Gymnastics Instructor Relationship Specialty Start Date End Date Sri Fajardo MD PCP - General Family Medicine 08/14/21
--- OUTSIDE RECORDS SUMMARY | 2025-01-27 02:30 | XMS_ITS | Continuity of Care Document ---
Author Organization [facility] Address [address] [place] [address] Phone Care Team Providers Care Pipe Cleaning Machine Operator Name Role Phone Riccardo Buenrostro Unavailable Unavailable Advance Directives Directive Yes / No Effective Date File Name No Information Encounters Encounter Description Practice Location Reason(s) For Visit Diagnoses Date Provider Providers Copied on Encounter [facility], [id number] [place] [address] [address], [place], [place], [id number], [place] tel:[phone] [facility] No Information Apr- 2-200 0 Prachisy Riccardo. [address] [facility] , [address], [place], [address], [place]. tel:[phone] Family History Family Member Type Diagnosis Age At Onset No Information Payers Payer name Insurance type Covered republican ID Authoriza tion(s) [employer] SOI CI [id number] Social History Type Description Quantity Date Captured [...]
--- OUTSIDE RECORDS SUMMARY | 2025-01-27 02:30 | XMS_ITS | Clinical Summary ---
Author Organization [facility] Address [address] [place] [address] Phone Care Team Providers Care Ladle Handler Name Role Phone Alexander Wiggins MD Primary Care Provider [phone] Inessa Guidry APRN, DISH MAKER Unavailable [phone] Allergies No known active allergies Medications Butler-3 Fatty Acids (FISH OIL) 1000 MG CAPSULE [...] Comments Blood Pressure 122/70 11/28/2016 10:30 AM EQUIPMENT OPERATOR/LABORER/SUPERVISOR Pulse 64 11/28/2016 10:30 AM EQUIPMENT OPERATOR/LABORER/SUPERVISOR Temperature 35.6 C (96.1 F) 11/28/2016 10:30 AM EQUIPMENT OPERATOR/LABORER/SUPERVISOR Respiratory Rate 18 11/28/2016 10:30 AM EQUIPMENT OPERATOR/LABORER/SUPERVISOR Oxygen Saturation 96% 11/28/2016 10:30 AM EQUIPMENT OPERATOR/LABORER/SUPERVISOR Inhaled Oxygen Concentration - - Weight 84.8 kg (187 lb) 10/31/2016 8:22 AM EQUIPMENT OPERATOR/LABORER/SUPERVISOR Height 185.4 cm (6' 1 ) 10/31/2016 8:22 AM EQUIPMENT OPERATOR/LABORER/SUPERVISOR Body Mass Index 24.67 10/31/2016 8:22 AM EQUIPMENT OPERATOR/LABORER/SUPERVISOR Plan of Treatment Health Maintenance Due Date [...] complete this topic Insurance MEDICARE Care Teams Ladle Handler Relationship Specialty Start Date End Date Alexander Wiggins MD [address] [place] [address] PCP - General Family Medicine 05/22/16 Inessa Guidry, MAIN ENTREE COOK AND CASHIER, DISH MAKER [address] [place] [address] Nurse Practitioner Advanced Practice Nurse 05/23/16
[2025-01-27] MEDS: HYDROmorphone HCL INJ (*CRX) 1 MG/ML SYR IM (02:49)
== END 2025-01-27 03:19 | disposition home or self-care (01) ==
PROVIDERS: Emergency Provider Emergency Medicine; PCP Family Medicine
DX: M54.9 Dorsalgia, unspecified (principal); G89.29 Other chronic pain; I10 Essential (primary) hypertension; I25.10 Atherosclerotic heart disease of native coronary artery without angina pectoris; E78.5 Hyperlipidemia, unspecified; K86.1 Other chronic pancreatitis; K21.9 Gastro-esophageal reflux disease without esophagitis; K74.60 Unspecified cirrhosis of liver; R73.03 Prediabetes; Z95.1 Presence of aortocoronary bypass graft; Z95.5 Presence of coronary angioplasty implant and graft; Z86.73 Personal history of transient ischemic attack (TIA), and cerebral infarction without residual deficits; Z87.891 Personal history of nicotine dependence; Z90.49 Acquired absence of other specified parts of digestive tract
CPT/HCPCS: 72070; 72100; 96372; 99283; A9270; J1171; J7512

== ENCOUNTER 2025-05-22 23:41 | Emergency (ER) | payer MEDICARE, SELFPAY ==
--- NOTE | ~2025-05-22 | CT_ITS ---
Clinical Indication: Thoracic and low back pain CT Scan of the Chest, Abdomen, and Pelvis with Contrast: Technique: Contiguous sections were acquired throughout the chest, abdomen, and pelvis after intraven ous administration of 100 cc of Omnipaque 350. Dose reduction technique was used on this scan by uti lizing automated exposure control and iterative reconstruction technique. The dose-length product (DL P) was 482.04 mGy-cm. Findings: There is no evidence of any significant mediastinal, hilar or axillary lymphadenopathy. The mediastin al soft tissues appear normal. No pulmonary embolus seen. No aortic aneurysm or dissection. There is no evidence of pleural or pericardial effusion. There is moderate emphysematous and/or chronic interstitial change, with peripheral cystic change or honeycomb formation. No suspicious pulmonary nodule or consolidation. A few calcified granulomas are present. Diffusely nodular contour of liver is present, compatible cirrhosis. No hepatic mass evident. Cholecy stectomy clips are present. The spleen, pancreas, adrenals and kidneys are within normal limits. 3.5 cm infrarenal abdominal aortic aneurysm present with aortic stent graft in place.. No lymphadenopath y. No bowel obstruction or bowel wall thickening. There is no evidence to suggest acute appendicitis. Urinary bladder is unremarkable. No pelvic mass seen. No ascites. Impression: Moderate emphysema and/or chronic interstitial change in the lungs, as detailed above. Cirrhotic liver. No hepatic mass seen. 3.5 cm infrarenal abdominal aortic aneurysm with aortic stent graft in place. Reviewed, dictated and finalized at [facility]. Impression: Moderate emphysema and/or chronic interstitial change in the lungs, as detailed above. Cirrhotic liver. No hepatic mass seen. 3.5 cm infrarenal abdominal aortic aneurysm with aortic stent graft in place.
[2025-05-22 23:47] VITALS: BP 119/90; PULSE 68; RESP 20; TEMP 36.6; O2SAT 98
[2025-05-22 23:48] VITALS: BP 119/90; PULSE 73; RESP 20; TEMP 36.6; O2SAT 98
--- NOTE | 2025-05-22 23:50 | ED.BACK ---
HPI - Back Pain/Injury General Chief Complaint: Back Pain/Injury Stated Complaint: back pain Time Seen by Provider: 05/22/25 23:45 Source: patient and family Mode of arrival: ambulatory Limitations: no limitations History of Present Illness HPI Narrative: Patient presents with report of pain from between his shoulder blades (mid thoracic) and radiating down towards in his back. He notes that this has been occurring intermittently 2 years but most acutely over the past 2 days. Patient has a history of multiple stents, he has 6 cardiac stents and 3 stents in his abdomen due to aneurysm. reports that he had a syncopal episode due to the pain.. No acute trauma or injury. He took Tylenol 2 hours prior to arrival states that did not provide relief. No history of cancer, IV drug use, steroids. Denies any hematuria urgency frequency or dysuria. No incontinence of bowel or bladder. Denies any paresthesias including no saddle anesthesia. Denies any fevers or chills. He is on Brilinta which he takes b.i.d.. He denies any abdominal pain. Related Data Home Medications ?Medication ?Instructions ?Recorded ?Confirmed ?Last Taken ?Type metoprolol succinate 50 mg 50 mg PO DAILY 11/29/19 10/06/24 Unknown History tablet,extended release 24 hr nitroglycerin 6.5 mg 6.5 mg PO DAILY 11/29/19 10/06/24 Unknown History capsule,extended release ticagrelor 90 mg tablet (Brilinta) 90 mg PO Q12H 11/29/19 10/06/24 Unknown History evolocumab 140 mg/mL subcutaneous 140 mg subcut [id number] 12/31/19 10/06/24 01/03/20 09:00 History pen injector (Repathsolo Tapiaick) isosorbide mononitrate 30 mg 30 mg PO DAILY 12/31/19 10/06/24 Unknown History tablet,extended release 24 hr omega-3 fatty acids 1,000 mg 1,000 mg PO DAILY 12/31/19 10/06/24 Unknown History capsule aspirin 81 mg tablet,delayed 81 mg PO DAILY 01/03/20 10/06/24 Unknown History release (Adult Low Dose Aspirin) famotidine 40 mg tablet (Pepcid) 40 mg PO DAILY 11/06/21 10/06/24 Unknown History Allergies Allergy/AdvReac Type Severity Reaction Status Date / Time Xgeocuf-MOL-UbO Reductase Allergy Unknown Unknown Verified 05/22/25 23:51 Inhibitor (Ybhzsbj-Dge-Yof Reductase Inhibitor) FOR[facility]LY [facility] Past Medical History Medical History Prediabetes Low serum iron Chronic, continuous use of opioids Cirrhosis Previous liver biopsy confirming diagnosis. Apparently cryptogenic in etiology. GERD (gastroesophageal reflux disease) History of rectal polyps TIA (transient ischemic attack) Coronary artery disease Patient with history of premature coronary artery disease in his 40s. He is status post multivessel CABG. On several occasions he was taken to cardiac catheterization lab per Dr. Champion, and due to his complex disease he has at times required intervention at [facility]. Chronic pancreatitis Hyperlipidemia Hypertension Surgical History Surgical History History of repair of aneurysm of abdominal aorta using endovascular stent graft x3 Status post appendectomy, follow-up exam Status post coronary artery bypass graft Hx of cardiac catheterization Last cardiac catheterization at this facility was May 31, [address] Champion. At that time it was noted that he had a patent stent to the circumflex. SVG to the OM and diagonal were apparently occluded. Juarez to LAD was patent. There was severe stenosis to a very large caliber vein graft to the RCA with 95 to 99% stenosis. This was deemed to be too high risk and he was transferred to [facility], where a total of 6 stents were placed. History of tonsillectomy History of cholecystectomy History of heart artery stent x6 Family History Family History Mother Family history of cardiovascular disease Diabetes mellitus Myocardial infarct Sibling Diabetes mellitus Pancreatitis Social History Social History Social History: The patient lives in [place] with his . He designates his as his surrogate decision maker and he wishes to be a full code. 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 His primary care provider is Dr. Loreta Padilla. He smoked 1 to 2 cigars a day but quit in 2008 after his bypass. No alcohol or drug abuse. Smoking status: Former smoker (Quit 1989) Tobacco type: cigars Smoking end date: 06/24/09 Alcohol intake: never Substance use: never Substance use type: does not use Lack of Transportation: No Lack of Food: Never True Current Housing: I Have Housing Concerned About Future Housing: No Difficulty Paying Gas/Electric Bills: No Difficulty Paying for Meds: No Currently Unemployed: No Education: Trade/Vocational Certificate Difficulty w/ Childcare or Family Care: No Living arrangements: with family Additional living arrangements comments: Lives with . Occupation/Education: retired Gender identity (if verbalized by the patient): Male Sexual Orientation (if Verbalized by the Patient): Straight or Heterosexual Spiritual care concerns: No Agree to blood products: Yes Exam Narrative: GENERAL: Well-appearing, well-nourished, and in no acute distress. Appears older than stated age HEAD: Normocephalic, atraumatic. EYES: Non injected, non icteric ENT: Nares clear, no rhinorrhea or epistaxis. Gross auditory acuity intact. NECK: Supple. No meningismus. CHEST: Speaking in full sentences. No respiratory distress. HEART: Regular rate and rhythm. . ABDOMEN: Soft, nondistended. EXTREMITIES: Normal range of motion. No lower extremity edema. SKIN: Warm, dry, no rash. BACK: TTP at various parts of T spine and L spine the without obvious bony deformities or step-offs. Primarily seated upright on the edge of the bed, slight flexion of spine. NEURO: No focal deficits. Alert and oriented. Answering questions. Following commands. Normal speech without aphasia or dysarthria. 5/5 strength with bilateral ankle dorsiflexion plantar flexion, bilateral knee flexion extension, bilateral hip flexion abduction adduction. Sensation intact throughout bilateral lower extremities. PSYCH: Normal mood and affect. Course Vital Signs Vital signs: Vital Signs Temperature 97.9 F 05/22/25 23:47 Pulse Rate 68 05/22/25 23:47 Respiratory Rate 20 05/22/25 23:47 Blood Pressure 119/90 05/22/25 23:47 Pulse Oximetry 98 05/22/25 23:47 Oxygen Delivery Room Air 05/22/25 23:47 Temperature 98 F 05/23/25 04:21 Pulse Rate 73 05/23/25 04:21 Respiratory Rate 16 05/23/25 04:21 Blood Pressure 142/89 H 05/23/25 04:21 Pulse Oximetry 97 05/23/25 04:21 Oxygen Delivery Room Air 05/22/25 23:47 MDM - Back Pain/Injury MDM Narrative Medical decision making narrative: Patient presents with report of back pain, that his entire spine hurts from between his shoulder blades down. Extensive vascular/cardiac history including 6 cardiac stents and 3 stents in abdomen. In the emergency department they are afebrile with vital signs within normal limits. Back has no deformities, external skin changes, or signs of trauma. Curvature is within normal limits. Tenderness is noted on palpation of the spinous processes which are otherwise midline. Lumbar paraspinal muscles are not tender and are without spasm. Sensation to the lower extremities is normal bilaterally. Dorsi/plantar flexion is normal bilaterally. Although patient does not have certain red flags, his comorbidities/history of aortic/vascular adds complexity. Given this, will proceed with imaging. Analgesic medication Dilaudid ordered. Patient reassessed just minutes after receiving this and it had not taken effect yet. Patient has transaminitis. There is a degree of chronicity to this although most recent labs had been normal. Patient's partner reports that he passed out due to the pain. [place] Syncope Rule: Congestive heart failure history: BNP normal Hematocrit <30%: No EKG abnormal (changed or any non-sinus rhythm): No SOB symptoms: No SBP <90mmHg at triage: No Troponin normal. Patient is reassessed at 3:35 a.m.. We discussed his unremarkable workup and the strategies of multimodal pain medicine to balance rest with maintaining staying active. Will give a p.o. dose of Valium the patient is strongly cautioned this will make him drowsy and he is to be careful with making sudden position changes especially in the middle of the night for example to go to the restroom. He verifies understanding and is in agreement. will drive (he no longer drives, won't be behind the wheel). Discharged with prescriptions for [id number] acetaminophen, a muscle relaxer for use at night, and topical lidocaine patches. Advised follow-up and given emergency department return indications. Differential Diagnosis Differential diagnosis: Likely strain of lumbar region, thoracic back pain, AAA, discitis and other (considered malignancy/pathologic fracture, ) Medical Records Attestation: I reviewed the patient's medical records. Medical records narrative: Here January 2025 with similar. Imaging from that date: Impression: Moderate to advanced degenerative spondylosis at L5-S1. Mild degenerative change in the remainder of the lumbar spine. Impression: Moderate to advanced degenerative disc narrowing throughout the upper to mid thoracic spine. Lab Data Attestation: I reviewed the patient's lab results. Lab results narrative: Very mild leukocytosis and very mild thrombocytopenia. Not anemic. 05/23/25 00:37 05/23/25 00:37 Labs: Lab Results 05/23/25 Range/Units 00:37 WBC 10.3 H (4.5-10.0) K/mm3 RBC 4.56 L (4.6-6.20) M/mm3 Hgb 14.4 (14.0-18.0) g/dL Hct 42.7 (42.0-52.0) % MCV 93.6 (80-100) fl MCH 31.6 (26-34) pg MCHC 33.7 (32-36) g/dl RDW 13.5 (11.5-14.5) % Plt Count 142 L (150-375) k/mm3 MPV 10.3 (7.4-10.4) fl Immature Gran % (Auto) 1.5 H (0-0.5) % Neut % (Auto) 62.4 (45.5-73.1) % Lymph % (Auto) 19.2 (18.3-44.2) % Elbert % (Auto) 12.1 H (2.6-8.5) % Eos % (Auto) 4.1 (0-4.4) % Baso % (Auto) 0.7 (0.2-1.2) % Lymph # (Auto) 1.97 (0.9-3.2) K/mm3 Elbert # (Auto) 1.2 H (0.1-0.6) K/mm3 Eos # (Auto) 0.4 H (0-0.3) K/mm3 Baso # (Auto) 0.1 (0.0-0.1) K/mm3 Abs Immat Gran (auto) 0.15 H (0.00-0.031) K/mm3 Absolute Neuts (auto) 6.4 (1.3-6.7) K/mm3 Absolute Nucleated RBC 0.000 (0.0-0.012) K/mm3 Nucleated RBC % 0.0 (0.0-0.2) % Sodium 137 (137-145) mmol/L Potassium 4.0 (3.4-5.0) mmol/L Chloride 103 (98-107) mmol/L Carbon Dioxide 24 (22-30) mmol/L Anion Gap 10 (4-12) mmol/L BUN 9 (9-20) mg/dL Creatinine 0.59 L (0.7-1.3) mg/dL Estim Creat Clear Calc 117 ml/min Estimated GFR > 60 (59 - ) Glucose 127 H (65-110) mg/dL Calcium 9.4 (8.4-10.2) mg/dL Total Bilirubin 0.6 (0.2-1.3) mg/dL AST 85 H (17-59) U/L ALT 57 H (6-50) U/L Alkaline Phosphatase 146 H (38-126) U/L Troponin I < 0.012 (0.000-0.034) ng/mL NT-Pro-B Natriuret Pep 38 (19.9-100) pg/mL Total Protein 9.7 H (6.3-8.2) g/dL Albumin 4.5 (3.5-5.1) g/dL Urine Color Yellow (Yellow) Urine Appearance Clear (Clear) Urine pH 6.5 (5.0-9.0) Ur Specific [place] 1.015 (1.001-1.035) Urine Protein Negative (Negative) mg/dL Urine Glucose (UA) Negative (Negative) mg/dL Urine Ketones Negative (Negative) mg/dL Ur Blood (Man) Negative (Negative) Urine Nitrate Negative (Negative) Urine Bilirubin Negative (Negative) Urine Urobilinogen 0.2 (<2.0) mg/dL Leukocyte Esterase Rfl Negative (Negative) ORTIZ/UL Imaging Data Radiologist's impression: CTA Chest/Abd/Pelvis STat Rad: No pulmonary embolus. No aortic aneurysm or dissection. Emphysema. No consolidation. Heart size is normal. No pathologically enlarged lymph nodes. No fracture. No aortic dissection. Patent endovascular stents traversing an infrarenal aortic aneurysm measuring 3.7 cm extends to both common iliac arteries. No acute findings of the arteries of the abdomen or pelvis. Cirrhosis with sequelae of portal hypertension including varices and mild nonspecific splenomegaly. The remaining solid organs are within normal limits. No bowel obstruction. No fracture No incidental findings ECG Data EKG #1: Attestation: I personally reviewed and interpreted this ECG as follows: ECG completion date: 05/23/25 ECG completion time: 01:28 Prior ECG tracings: available for review Interpretation: Normal sinus rhythm at a rate of 66 beats per minute. VT interval 173. QRS 135. QT/QTC 434/448. Borderline left axis deviation as QRS is positive in 1 and negative in 3 and AVF and trending towards negative in 2. RBBB given QRS greater [id number]; RSR' M-shaped pattern in V1-V3; wide, slurred S wave in lateral leads (I, aVL, V5-6). EKG from November 29, 2016 is reviewed as is EKG 01/03/2020 - the latter shows RBBB Discharge Plan Discharge Clinical Impression: Acute on chronic back pain, Transaminitis Patient Disposition: Home Condition: Stable Instructions: Antibiotic Form, Acute Low Back Pain (ED), Chronic Back Pain (DC), Lower Back Exercises (ED), Transaminitis (ED) Additional Instructions: As we discussed, the goal multimodal pain therapy is to balance some rest with maintaining staying active. Follow-up with your primary care physician. Acetaminophen/Tylenol (maximum 4000 mg per day) is safe to take. Muscle relaxer can help at night and you are also being prescribed a topical approach. Return to the ER if you have increased pain in your back, you develop lower extremity weakness/numbness/paralysis, you have numbness or tingling in your private parts, or you are unable to control your ability to urinate/stool. Patient Language: Sri Lankan Prescriptions: New lidocaine 4 % adhesive patch,medicated 1 patch topical DAILY PRN (Reason: pain) Qty: 10 0RF acetaminophen 500 mg capsule 1,000 mg PO Q6H PRN (Reason: pain) Qty: 30 0RF methocarbamol 750 mg tablet 750 mg PO HS Qty: 7 0RF No Action Repatha SureClick 140 mg/mL pen injector 140 mg SUB-Q [id number] Rx Instructions: SUBQ EVERY TWO WEEKS. isosorbide mononitrate 30 mg tablet extended release 24 hr 30 mg PO DAILY omega-3 fatty acids 1,000 mg capsule 1,000 mg PO DAILY famotidine [Pepcid] 40 mg tablet 40 mg PO DAILY montelukast 10 mg tablet 10 mg PO QHS Qty: 30 3RF prednisone 20 mg tablet 40 mg PO DAILY 5 Days Qty: 10 0RF orphenadrine citrate 100 mg tablet extended release 100 mg PO Q12H PRN (Reason: muscle pain) 10 Days Qty: 20 0RF aspirin [Adult Low Dose Aspirin] 81 mg Tablet,Delayed Release (Dr/Ec) 81 mg PO DAILY Brilinta 90 mg tablet 90 mg PO Q12H Rx Instructions: take 1 tablet by oral route 2 times every day metoprolol succinate 50 mg tablet extended release 24 hr 50 mg PO DAILY nitroglycerin 6.5 mg capsule, extended release 6.5 mg PO DAILY ergocalciferol (vitamin D2) 1,250 mcg (50,000 unit) capsule 1,250 mcg PO WEEKLY Qty: 14 3RF Creon 6,000-19,000 -30,000 unit capsule,delayed release(DR/EC) 1 cap PO TID Qty: 270 0RF niacin 1,000 mg tablet extended release 24 hr 1,000 mg PO .at bedtime Qty: 90 1RF hydrocodone-acetaminophen 7.5-325 mg tablet 1 tablet PO Q6H PRN (Reason: pain) Qty: 120 0RF Follow-up/Referrals: Sri Fajardo MD [Primary Care Provider] - Stand Alone Forms: Work/School Release IP Time of Disposition: 03:50
[2025-05-23] VITALS (9 sets, daily range): BP systolic 119–142; BP diastolic 81–98; PULSE 64–73; RESP 16–20; TEMP 36.6; O2SAT 96–98
[2025-05-23 00:51] LABS: Add Urine Microscopic? NO; Appearance Urine Clear (Clear); Bilirubin Urine Negative (Negative); Blood Urine Negative (Negative); Color Urine Yellow (Yellow); Glucose Urine UA Negative (Negative); Ketones Urine Negative (Negative); Leukocyte Esterase Ur Negative LEU/UL (Negative); Nitrate Urine Negative (Negative); Protein Urine Negative (Negative); Specific Grav Ur 1.015 (1.001-1.035); Urobilinogen Urine 0.2 mg/dL (<2.0); pH Urine 6.5 (5.0-9.0)
[2025-05-23 00:55] LABS: Alanine Aminotransferase 57 U/L (6-50); Albumin Level 4.5 g/dL (3.5-5.1); Alkaline Phosphatase 146 U/L (38-126); Anion Gap 10 mmol/L (4-12); Aspartate Amino Transferase 85 U/L (17-59); Bilirubin,Total 0.6 mg/dL (0.2-1.3); Blood Urea Nitrogen 9 mg/dL (9-20); Calcium 9.4 mg/dL (8.4-10.2); Carbon Dioxide 24 mmol/L (22-30); Chloride 103 mmol/L (98-107); Estimated CRCL calculation 117 ml/min; Estimated Glomerular Filt Rate > 60; Glucose 127 mg/dL (65-110); Sodium 137 mmol/L (137-145); Total Protein 9.7 g/dL (6.3-8.2)
[2025-05-23 00:59] LABS: Basophils Absolute Auto 0.1 K/mm3 (0.0-0.1); Basophils Percent Auto 0.7 % (0.2-1.2); Eosinophils Absolute Auto 0.4 K/mm3 (0-0.3); Eosinophils Percent Auto 4.1 % (0-4.4); Hematocrit 42.7 % (42.0-52.0); Hemoglobin 14.4 g/dL (14.0-18.0); Immature Granulocyte Absolute 0.15 K/mm3 (0.00-0.031); Immature Granulocyte Percent A 1.5 % (0-0.5); Lymphocytes Absolute Auto 1.97 K/mm3 (0.9-3.2); Lymphocytes Percent Auto 19.2 % (18.3-44.2); Mean Corpuscular HGB Conc 33.7 g/dl (32-36); Mean Corpuscular Hemoglobin 31.6 pg (26-34); Mean Corpuscular Volume 93.6 fl (80-100); Mean Platelet Volume 10.3 fl (7.4-10.4); Monocytes Absolute Auto 1.2 K/mm3 (0.1-0.6); Monocytes Percent Auto 12.1 % (2.6-8.5); Neutrophils Absolute Auto 6.4 K/mm3 (1.3-6.7); Neutrophils Percent Auto 62.4 % (45.5-73.1); Platelet Count Result 142 k/mm3 (150-375); Red Blood Count 4.56 M/mm3 (4.6-6.20); Red Cell Distribution Width 13.5 % (11.5-14.5); White Blood Count 10.3 K/mm3 (4.5-10.0)
--- NOTE | 2025-05-23 01:02 | ECG_ITS ---
Test Date: 2025-05-23 01:28:00 Measurements Intervals Moran Rate: 66 P: 40 SD: 173 QRS: -24 QRSD: 135 T: 38 QT: 434 QTc: 457 Interpretive Statements SINUS RHYTHM RIGHT BUNDLE BRANCH BLOCK BASELINE ARTIFACT- I, II, AVL, AVF ABNORMAL ECG No previous ECG available for comparison Electronically Signed On 05-23-2025 06:21:08 CDT by Familia Zuleta D.O.
[2025-05-23] MEDS: HYDROmorphone HCL INJ (*CRX) 2 MG/ML VIAL 0.5 MG IV PUSH (01:19)
--- NOTE | 2025-05-23 01:41 | PC.NURSE ---
Per GARRETT Brown, Lab will add on the additional labs.
[2025-05-23 02:13] LABS: NT Pro B Type Natriuretic Pept 38 pg/mL (19.9-100); Troponin I < 0.012 ng/mL (0.000-0.034)
[2025-05-23] MEDS: ACETAMINOPHEN 500 MG TABLET 1000 MG PO (03:52)
[2025-05-23] MEDS: KETOROLAC 15 MG/ML VIAL (*BKC) IV PUSH (03:52)
[2025-05-23] MEDS: diazePAM (*CRX) 2 MG TABLET PO (03:53)
== END 2025-05-23 04:19 | disposition home or self-care (01) ==
PROVIDERS: Emergency Provider Student in an Organized Health Care Education/Training Program; PCP Family Medicine
DX: M54.6 Pain in thoracic spine (principal); M54.50 Low back pain, unspecified; G89.29 Other chronic pain; R74.01 Elevation of levels of liver transaminase levels; I25.10 Atherosclerotic heart disease of native coronary artery without angina pectoris; I10 Essential (primary) hypertension; I71.43 Infrarenal abdominal aortic aneurysm, without rupture; E78.5 Hyperlipidemia, unspecified; R73.03 Prediabetes; K74.60 Unspecified cirrhosis of liver; K86.1 Other chronic pancreatitis; K21.9 Gastro-esophageal reflux disease without esophagitis; Z95.1 Presence of aortocoronary bypass graft; Z95.5 Presence of coronary angioplasty implant and graft; Z95.828 Presence of other vascular implants and grafts; Z86.73 Personal history of transient ischemic attack (TIA), and cerebral infarction without residual deficits; Z86.0100 Personal history of colon polyps, unspecified; Z87.891 Personal history of nicotine dependence; Z90.49 Acquired absence of other specified parts of digestive tract; Z79.02 Long term (current) use of antithrombotics/antiplatelets; I45.10 Unspecified right bundle-branch block; R91.8 Other nonspecific abnormal finding of lung field
CPT/HCPCS: 36415; 71275; 74174; 80053; 81003; 83880; 84484; 85025; 93005; 96374; 96375; 99284; A9270; J1171; J1885; Q9967

== ENCOUNTER 2025-08-10 10:14 | Outpatient (CLI) | payer MEDICARE, SELFPAY ==
--- OUTSIDE RECORDS SUMMARY | 2000-05-05 08:15 | XMS_ITS | Continuity of Care Document ---
Author Organization [facility] Address [address] [place] [address] Phone Care Team Providers Care Regional Property Manager Name Role Phone Riccardo Buenrostro Unavailable Unavailable Advance Directives Directive Yes / No Effective Date File Name No Information Encounters Encounter Description Practice Location Reason(s) For Visit Diagnoses Date Provider Providers Copied on Encounter Formerly [facility], [id number] [place] [address] [address], [place], [place], [id number], [place] tel:[phone] [facility] [place] No Information Apr- 2-200 0 Prachisy Riccardo. [address] [facility] , [address], [place], [address], [place]. tel:[phone] Family History Family Member Type Diagnosis Age At Onset No Information Payers Payer name Insurance type Covered republican ID Authoriza tion(s) [employer] SOI CI [id number] Social History Type Description Quantity Date Captured Comments Sex Male Smoking Status No Information Chief Complaint And Reason For Visit No Information Reason For Referral Reason For Referral No Information History Of Present Illness Encounter Date Complaint History Of Prese nt Illness No Information Functional Status Date Functional Assessmen t No Information Instructions Date Instruction Additional Infor mation No Information Assessments Type Assessment Date No Information Patient Care Teams Name Effective Dates (start - stop) Status Members No Information
[2025-08-10 10:30] LABS: Hematocrit 42.1 % (40.0-54.0); Hemoglobin 14.1 g/dL (14.0-18.0); Immature Granulocyte Percent A 1.0 % (0.0-0.0); Lymphocytes Absolute Auto 2.17 K/mm3 (1.10-4.50); Mean Corpuscular HGB Conc 33.5 g/dL (32-36); Mean Corpuscular Hemoglobin 31.8 pg (27.0-31.0); Mean Corpuscular Volume 94.8 fL (78.0-102.0); Nucleated Red Blood Cells Absolute Auto 0.00 K/mm3 (0.00-0.00); Nucleated Red Blood Cells Perc 0.0 % (0-0.0); Platelet Count Result 149 K/mm3 (150-420); Red Blood Count 4.44 M/mm3 (4.70-6.10); White Blood Count 8.7 K/mm3 (4.8-10.8)
[2025-08-10 10:50] LABS: Hemoglobin A1C 6.3 % (<5.7)
[2025-08-10 10:55] LABS: Alanine Aminotransferase 44 U/L (6-50); Albumin Level 4.2 g/dL (3.5-5.1); Alkaline Phosphatase 135 U/L (38-126); Anion Gap 12 mmol/L (4-12); Aspartate Amino Transferase 63 U/L (17-59); Bilirubin,Total 0.5 mg/dL (0.2-1.3); Blood Urea Nitrogen 7 mg/dL (9-20); Calcium 9.6 mg/dL (8.4-10.2); Carbon Dioxide 25 mmol/L (22-30); Chloride 101 mmol/L (98-107); Cholesterol 127 mg/dL (0-200); Estimated Glomerular Filt Rate > 60; Glucose 252 mg/dL (65-110); HDL Direct 41 mg/dL; Osmolality Calculated 293 mOsm/kg (285-295); Potassium 4.4 mmol/L (3.4-5.0); Sodium 138 mmol/L (137-145); Total Protein 10.1 g/dL (6.3-8.2); Triglycerides 306 mg/dL (<150)
--- OUTSIDE RECORDS SUMMARY | 2025-08-10 11:24 | XMS_ITS | Clinical Summary ---
Author Organization [facility] [address] Address [address] [place] [address] Care Team Providers Care Entry Level Software Engineer Name Role Phone Sir Fajardo MD Primary Care Provider [phone] Allergies Active Allergy Reactions Criticality Noted Date Comments Sqtojxc-Qqf-Wlx Reductase Inhibitors Other (See comments) Low Reaction: Other Medications HYDROcodone-acet aminophen (NORCO) 7.5-325 mg per tablet take 1 tablet by oral route every 6 hours as needed for pain 0 0 6 Active aspirin (ASPIR-81) 81 mg tablet take 1 Tablet by oral route every day 0 0 6 Active niacin 1,000 mg tablet extended release take 2 Tablet by oral route every day at bedtime 0 0 6 Active pancrelipase (CREON) 6,000 units of lipase capsule take 4 capsule by oral route 3 times every day with meals and 2 capsules with each snack 0 0 7 Active fish oil-dha-epa 1,200-144-216 mg capsule Take 1 tablet by mouth daily Active montelukast (SINGULAIR) 10 mg tablet 2 Active isosorbide mononitrate ER (IMDUR) 30 mg 24 hr tablet TAKE 1 TABLET BY MOUTH EVERY DAY 90 tablet 3 4 Active nitroglycerin (NITROSTAT) 0.4 mg SL tabletIndication s:Coronary artery disease involving red cliff coronary artery of red cliff heart without angina pectoris PLACE 1 TABLET UNDER TONGUE EVERY 5 MINS, UP TO 3 DOSES NEEDED FOR CHEST PAIN 25 tablet 1 5 Active Brilinta 90 mg tablet TAKE 1 TABLET BY MOUTH TWICE A DAY 180 tablet 2 5 Active metoprolol XL (TOPROL-XL) 50 mg extended release tablet TAKE 1 TABLET BY MOUTH EVERY DAY 90 tablet 3 5 Active Repatha SureClick 140 mg/mL pen injector Inject 1 mL (140 mg total) under the skin every 14 (fourteen) days 2 mL 11 5 Active Active Problems Problem Noted Date Diagnosed Date Mixed hyperlipidemia 03/17/2023 Assessment & Plan (09/29/2024 10:12 AM DIRT BIKE RACER): Recommend statin therapy. Assessment & Plan (09/16/2023 [...] 07/11/2021 Assessment & Plan (09/29/2024 10:12 AM DIRT BIKE RACER): Stable continue metoprolol. Assessment & Plan (09/16/2023 [...] 07/02/2021 Assessment & Plan (09/29/2024 10:12 AM DIRT BIKE RACER): Status post endovascular abdominal aortic aneurysm repair [...] hold this. Coronary artery disease invo lving red cliff coronary artery of red cliff heart without angina pectoris 08/26/2017 Assessment & Plan (07/02/2021 1:37 PM CDT): Continue risk factor modification with aspirin, Brilinta, and beta-maryjane. Hx of CABG 08/26/2017 History of coronary artery stent placement 08/26 Assessment & Plan (07/02/2021 1:37 PM CDT): Continue dual anti-platelet as above. Idiopathic chronic pancreatitis 07/15/2012 Encounters Date Type Department Care Team Description 08/02/2025 11:30 AM CDT Office Visit [facility]iology at [address] [place] [address] Justen Champion MD Hx of CABG (Primary Dx); History of coronary artery stent placement; Status post endovascular aneurysm repair (EVAR); Need for lipid screening from Last 3 Months Immunizations Immunization Administration Dates Next Due Influenza, [...] on file Legal Sex Male 7:26 AM DIRT BIKE RACER Gender Identity Not on file Sexual Orientation Not on file Obstetrics History Last Filed Vital Signs Vital Sign Reading Time Taken Comments Blood Pressure 122/88 08/02/2025 11:21 AM CDT Pulse 84 08/02/2025 11:21 AM CDT Temperature 36.9 C (98.5 F) 07/25/2021 11:15 AM CDT Respiratory Rate 18 07/25/2021 8:00 AM CDT Oxygen Saturation 97% 08/02/2025 11:21 AM CDT Inhaled Oxygen Concentration - - Weight 70.5 kg (155 lb 6.4 oz) 08/02/2025 11:21 AM CDT Height 182.9 cm (6') 08/02/2025 11:21 AM CDT Body Mass Index 21.08 08/02/2025 11:21 AM CDT Plan of Treatment Health Maintenance Due Date Last Done Comments Colon Cancer Screening-Colonoscopy 1960 Depression Screening 1960 Hepatitis C Screening 1960 Prostate Cancer Screening-PSA 1960 Hepatitis B Screening 1978 Regular Well Visit/Exam 18-64 1978 Pneumococcal vaccine <65 (1 of 2 - PCV) 1979 Zoster Vaccine (1 of 2) 2010 Influenza Vaccine (#1) 2025 4, 10/17/2020, 01/04/2020, Additional history exists DTaP/Tdap/Td Vaccine (2 - Td or Tdap) 01/29/2026 01/30/2016 Medical Devices Implanted Type Area Executive Manager Device Identifier Shelf Expiration Date Model / Serial / Lot Medtronic [employer] X [id number] Resolute Miguel 5mm 2.1-2.7fr 30mm 140cm Rapid Exchange Radiopaque - [id number] Implanted:Qty: 1 on 05/31/2019 by Lance Gunter MD at [facility] N/A: Coronary Medtronic Inc 12/10/2019 [id number] / / [id number] [employer] X [id number] Resolute Miguel 5mm 2.1-2.7fr 30mm 140cm Rapid Exchange Radiopaque - [id number] Implanted:Qty: 1 on 05/31/2019 by Lance Gunter MD at [facility] N/A: Coronary Medtronic Inc 10/01/2020 [id number] / / [id number] [employer] X [id number] Resolute [place] 2.5mm 2.1-2.7fr 18mm 140cm Rapid Exchange - [id number] Implanted:Qty: 1 on 05/31/2019 by Lance Gunter MD at [facility] N/A: Coronary Medtronic Inc 03/16/2020 [id number] / / [id number] Med[employer] X [id number] Resolute [place] 2.75mm 2.1-2.7fr 26mm 140cm Rapid Exchange - [id number] Implanted:Qty: 1 on 05/31/2019 by Lance Gunter MD at [facility] N/A: Coronary Medtronic Inc 10/25/2020 [id number] / / [id number] Med[employer] X [id number] Resolute Migule 5mm 2.1-2.7fr 18mm 140cm Rapid Exchange Radiopaque - [id number] Implanted:Qty: 1 on 05/31/2019 by Lance Gunter MD at [facility] N/A: Coronary Medtronic Inc 01/01/2020 [id number] / / [id number] Ter[employer]o [employer] Alok 66-F7-58-100u Graft Treo Abd Aortic Stent 28mm Bifurcate 100mm - [id number] Implanted:Qty: 1 on 07/24/2021 by Isaak Lu MD at [facility] N/A: Aorta [employer]ok [id number] 12/14/2022 28-B2-28- 100U / / [id number] Graft Treo Abd Aortic Stent 15/20mm Leg Extension 140mm - [id number] Implanted:Qty: 1 on 07/24/2021 by Isaak Lu MD at [facility] N/A: Aorta [employer]ok [id number] 04/13/2024 28-L2-20- 140U / / [id number] Graft Treo Abd Aortic Stent 15/13mm Leg Extension 120mm - [id number] Implanted:Qty: 1 on 07/24/2021 by Isaak Lu MD at [facility] N/A: Aorta [employer]ok [id number] 01/03/2024 28-L2-13- 120U / / [id number] [employer] [id number] Perclose 6fr Suture Mediate Knot Push Vascular Device Closure - [id number] Implanted:Qty: 1 on 07/24/2021 by Isaak Lu MD at [facility] [employer] [id number] / / [employer] [id number] Perclose 6fr Suture Mediate Knot Push Vascular Device Closure - [id number] Implanted:Qty: 1 on 07/24/2021 by Isaak Lu MD at [facility] [employer] [id number] / / [employer] [id number] Perclose 6fr Suture Mediate Knot Push Vascular Device Closure - [id number] Implanted:Qty: 1 on 07/24/2021 by Isaak Lu MD at [facility] [employer] [id number] / / [employer] [id number] Perclose 6fr Suture Mediate Knot Push Vascular Device Closure - [id number] Implanted:Qty: 1 on 07/24/2021 by Isaak Lu MD at [facility] [employer] [id number] / / Procedures Procedure Name Priority Date/Time Associated Diagnosis Comments POCT LIPID PANEL Routine 08/02/2025 11:4 3 AM CDT Need for lipid screening from Last 3 Months Results * (ABNORMAL) POCT lipid panel (08/02/2025 11:43 AM CDT) Cholesterol, POC 122 <200 MG/DL HDL, POC 35(A) >=40 mg/dL Triglycerides, POC 215(A) <=149 mg/dL LDL Cholesterol POC 44 <=129 mg/dL Chol/HDL Ratio, POC 3.5 NONE Non-HDL Cholesterol, POC 87 NONE mg/dL Cholesterol Total, POC 122 30 - 199 mg/dL Capillary blood 08/02/2025 1 1:43 AM CDT Justen Champion MD POINT OF CARE TEST ORDER POLLO Final Result from Last 3 Months Insurance MEDICARE MEDICARE MEDICARE Advance Directives For more information, please contact: [phone] * Full Code (Latest Code Status on File) Date Activated Date Inactivated Comments 07/24/2021 12:14 PM 07/25/2021 4:06 PM * Full Code Date Activated Date Inactivated Comments 05/31/2019 8:08 PM 06/01/2019 6:38 PM * Full Code Date Activated Date Inactivated Comments 05/31/2019 8:08 PM 05/31/2019 8:08 PM Care Teams Entry Level Software Engineer Relationship Specialty Start Date End Date Sri Fajardo MD PCP - General Family Medicine 08/14/21
--- OUTSIDE RECORDS SUMMARY | 2025-08-10 11:24 | XMS_ITS | Clinical Summary ---
Author Organization [facility] Address [address] [facility] Attn: Epic Prelude ADT [place] [address] Care Team Providers Care Bleach Tester Name Role Phone Unavailable Primary Care Provider [...] every 14 (fourteen) days 2 mL 11 07/26/2025 4:26 PM CDT 5 Active Social History Tobacco Use Types Packs/Day Years [...] (1 of 2) 2010 INFLUENZA VACCINE (#1) 2025 RSV VACCINE (60+ or ) (1 - 1-dose 75+ series) 2035 Insurance RX [employer] RX Member Subscriber Plan / Payer (Ef fective for All Dates) Name:ROSENDA RHODES Relation to Subscriber:Self Name:Rosenda Rhodes Payer ID:Not on file Group ID:[id number] Type:RX Commercial Address: [address]
--- OUTSIDE RECORDS SUMMARY | 2025-08-10 11:25 | XMS_ITS | Patient Health Record ---
Author Organization [facility] Address [address] [facility] [address] [place] [address] Care Team Providers Care Baffle Mounter Name Role Phone Justen Chappell Primary Care Provider [phone] [place] Unavailable [phone] Allergies Allergen (clinical drug ingredient) Drug/Non Drug Allergy documented on EMR Reaction Allergy Type Onset Date Status Substance with 4-gcibmbf-7-methylgluta ryl-coenzyme A reductase inhibitor mechanism of action (substance) Statins (uncoded) Unknown Allergy Active Reason For Referral No Information Medications Medication SIG (Take, Route, Frequency, Duration) Notes Start Date End Date Status Nitroglycerin 0.3 MG Tablet Sublingual 1 tablet Sublingual Once a day as needed; Duration: 90 days 01/03/2015 Active Atenolol 50 MG Tablet TAKE ONE TABLET BY MOUTH EVERY DAY FOR 90 DAYS Active Niacin ER (Antihyperlipidemic) 1000 MG Tablet Extended Release TAKE ONE TABLET BY MOUTH EVERY DAY Active Creon 6000 UNIT Capsule Delayed Release Particles TAKE 1 CAPSULE BY MOUTH 3 TIMES A DAY WITH FOOD 30 DAYS Active Brilinta 90 MG Tablet 1 tablet Orally Tw ice a day Active Omeprazole 40 MG Capsule Delayed Release 1 capsule Orally Once a day; Duration: 90 days 12/11/2015 Active Omeprazole 20 MG Capsule Delayed Release 1 capsule Orally Once a day; Duration: 90 days 01/05/2015 Not-Taking Aspirin Adult Low Strength 81 MG Tablet take 1 tablet (81MG) by oral route every day Oral 05/31/2013 Active Multivitamin Tablet take 1 capsule by or al route every day Active Niacin ER 1000 MG Tablet Extended Release TAKE ONE TABLET BY MOUTH EVERY DAY Active Pantoprazole Sodium 40 MG Tablet Delayed Release 1 tablet Orally Once a day; Duration: 90 days 01/11/2016 Active Social History Social History Drugs/Alcohol: Social Info Question Answer Notes Drugs Have you used drugs other than those for medical reasons in the past 12 months? No Caffeine Intake: 3-4 cups per day coffee Problems Problem Type SNOMED Code ICD Code Onset Dates Problem Status W/U Status Risk Notes Problem Essential hypertension (80049288) Unspecified essential hypertension (401.9) Active confirmed ([facility] ) Added By: Domonique Rodríguez Problem Atherosclerosis of coronary artery (227620521) Coronary atherosclerosis of unspecified type of vessel, [place] or graft (414.00) Active confirmed ([facility] ) Added By: Domonique Rodríguez Problem Chronic pancreatitis (453527845) Chronic pancreatitis (577.1) Active confirmed ([facility] ) Added By: Domonique Rodríguez Problem Essential hypertension (11147849) Essential hypertension (I10) Active confirmed Problem Gastroesophageal reflux disease (521047690) Gastroesophageal reflux disease, esophagitis presence not specified (K21.9) Active confirmed Problem Atherosclerosis of coronary artery without angina pectoris (006594415704404) Atherosclerosis of [place] coronary artery of [place] heart without angina pectoris (I25.10) Active confirmed Problem Chronic pancreatitis (593414395) Chronic pancreatitis, unspecified pancreatitis type (K86.1) Active confirmed Problem Idiopathic chronic pancreatitis (817095857) Idiopathic chronic pancreatitis (K86.1) Active confirmed Plan Of Treatment No Information Insurance Providers Payer Name Payer Address Payer Phone Subscriber Number Group Number Insured Name Patient Relationship to Insured Coverage Start Date Coverage End Date Medicare NGS [address] [place], [place] [id number] Kashif Rhodes Self - patient is the insured 4 Medicare Part B [address] [place], [place] [id number] Kashif Rhodes Self - patient is the insured 3 Medical (General) History Medical History History ICD Code hypertension Chronic pancreatitis CAD Surgical History Surgery Date(Month/Year) Heart stent 11/2015 Appendectomy Coronary artery bypass graft (CABG) Colonoscopy 2013 Hospitalization History Reason Date(Month/Year) Heart stent/heart attack 11/2015
--- OUTSIDE RECORDS SUMMARY | 2025-08-10 11:25 | XMS_ITS | Clinical Summary ---
Author Organization [facility] Address [address] [place] [address] Phone Care Team Providers Care User Experience Designer Name Role Phone Alexander Wiggins MD Primary Care Provider [phone] Inessa Guidry APRN, DEICER KIT ASSEMBLER Unavailable [phone] Allergies No known active allergies Medications Zaleski-3 Fatty Acids (FISH OIL) 1000 MG CAPSULE [...] Comments Blood Pressure 122/70 11/28/2016 10:30 AM PRESERVATIVE FILLER MACHINE OPERATOR Pulse 64 11/28/2016 10:30 AM PRESERVATIVE FILLER MACHINE OPERATOR Temperature 35.6 C (96.1 F) 11/28/2016 10:30 AM PRESERVATIVE FILLER MACHINE OPERATOR Respiratory Rate 18 11/28/2016 10:30 AM PRESERVATIVE FILLER MACHINE OPERATOR Oxygen Saturation 96% 11/28/2016 10:30 AM PRESERVATIVE FILLER MACHINE OPERATOR Inhaled Oxygen Concentration - - Weight 84.8 kg (187 lb) 10/31/2016 8:22 AM PRESERVATIVE FILLER MACHINE OPERATOR Height 185.4 cm (6' 1) 10/31/2016 8:22 AM PRESERVATIVE FILLER MACHINE OPERATOR Body Mass Index 24.67 10/31/2016 8:22 AM PRESERVATIVE FILLER MACHINE OPERATOR Plan of Treatment Health Maintenance Due Date Last Done Comments Hepatitis C Virus (HCV) Screening 1960 TdaP Immunization 1960 Cologuard 2005 Colonoscopy 2005 Colorectal Cancer Screening 2005 Immunochemical Fecal Occult Blood 2005 Pneumococcal Immunization (5 0+ years) (1 of 1 - PCV) 2010 Zoster Immunization (1 of 2) 2010 SARS-COV-2 Immunization (1 - season) 2024 Influenza Immunization (#1) 2025 10/23/2015 Respiratory Syncytial Virus (RSV) Immunization (Adult) (1 - 1-dose 75+ series) 2035 Hepatitis B Immunization Aged Out No longer eligible based on patient's age to complete this topic Human Papillomavirus (HPV) Immunization Aged Out No longer eligible b ased on patient's age to complete this topic Meningococcal Immunization (ACWY) Aged Out No longer eligible based on patient's age to complete this topic Rotavirus Immunization Aged Out No lo nger eligible based on patient's age to complete this topic Insurance MEDICARE Care Teams User Experience Designer Relationship Specialty Start Date End Date Alexander Wiggins MD [address] [place] [address] PCP - General Family Medicine 05/22/16 Inessa Guidry, CONCRETE PAVEMENT INSTALLER, DEICER KIT ASSEMBLER [address] [place] [address] Nurse Practitioner Advanced Practice Nurse 05/23/16
--- OUTSIDE RECORDS SUMMARY | 2025-08-10 11:25 | XMS_ITS | Encounter Summary ---
Author Organization [facility] Address [address] [place] [address] Care Team Providers Care Block Cableman Name Role Phone Loreta Lopez MD Primary Care Provider [phone] Sri Fajardo MD Primary Care Provider [phone] Encounter Details Date Type Department Care Team (Late st Contact Info) Description 07/24/[address] [address] Rafa Barnett RN Social History Tobacco Use [...] on file Legal Sex Male 7:26 AM ASSISTANT ACCOUNT EXECUTIVE Gender Identity Not on file Sexual Orientation Not on file documented as of this encounter Functional Status documented as of this encounter Plan of Treatment Not on file documented as of this encounter Visit Diagnoses Not on filedocumented in this encounter Care Teams Block Cableman Relationship Specialty Start Date End Date Loreta Lopez MD PCP - General 07/21/21 08/13/21 Sri Fajardo MD PCP - General Family Medicine 08/14/21 documented as of this encounter
[2025-08-10 11:26] LABS: Thyroid Stimulating Hormone Reflex 0.749 uIU/mL (0.465-4.68)
== END 2025-08-10 10:15 | disposition home or self-care (01) ==
LOC: CHSLAB 10:15
PROVIDERS: PCP Family Medicine; Visit Provider Family Medicine
DX: E78.2 Mixed hyperlipidemia (principal); R53.83 Other fatigue; R73.03 Prediabetes
CPT/HCPCS: 36415; 80053; 80061; 83036; 84443; 85025

== ENCOUNTER 2025-08-14 22:42 | Emergency (ER) | payer MEDICARE, SELFPAY ==
--- OUTSIDE RECORDS SUMMARY | 2000-05-05 08:15 | XMS_ITS | Continuity of Care Document ---
Author Organization [facility] Address [address] [place] [address] Phone Care Team Providers Care Portainer Operator Name Role Phone Riccardo Buenrostro Unavailable Unavailable Advance Directives Directive Yes / No Effective Date File Name No Information Encounters Encounter Description Practice Location Reason(s) For Visit Diagnoses Date Provider Providers Copied on Encounter [facility], [address] [place] [address] [address], [place], [place], [address], [place] tel:[phone] SEC [facility] No Information Apr- 2-200 0 Prachisy Riccardo. [address] [facility] , [address], [place], [address], [place]. tel:[phone] Family History Family Member Type Diagnosis Age At Onset No Information Payers Payer name Insurance type Covered republican ID Authoriza tion(s) [employer] SOI CI [id number] Social History Type Description Quantity Date Captured [...]
--- OUTSIDE RECORDS SUMMARY | 2000-05-05 08:15 | XMS_ITS | Continuity of Care Document ---
Author Organization [facility] Address [address] [place] [address] Phone Care Team Providers Care Baggage Inspector Name Role Phone Riccardo Buenrostro Unavailable Unavailable Advance Directives Directive Yes / No Effective Date File Name No Information Encounters Encounter Description Practice Location Reason(s) For Visit Diagnoses Date Provider Providers Copied on Encounter [facility], [address] [place] [address] [address], [place], [place], [address], [place] tel:[phone] SEC [facility] No Information Apr- 2-200 0 Prachisy Riccardo. [address] [facility] , [address], [place], [address], [place]. tel:[phone] Family History Family Member Type Diagnosis Age At Onset No Information Payers Payer name Insurance type Covered republican ID Authoriza tion(s) [employer] SOI CI [id number] Social History Type Description Quantity Date Captured [...]
--- OUTSIDE RECORDS SUMMARY | 2025-08-14 22:45 | XMS_ITS | Encounter Summary ---
Author Organization [facility] Healthcare Address [address] [place] [address] Care Team Providers Care Bunch Trimmer Mold Name Role Phone Loreta Lopez MD Primary Care Provider [phone] Sri Fajardo MD Primary Care Provider [phone] Encounter Details Date Type Department Care Team (Late st Contact Info) Description 07/24/[address] [address] Rafa Barnett RN Social History Tobacco Use [...] on file Legal Sex Male 7:26 AM BIT GATHERER Gender Identity Not on file Sexual Orientation Not on file documented as of this encounter Functional Status documented as of this encounter Plan of Treatment Not on file documented as of this encounter Visit Diagnoses Not on filedocumented in this encounter Care Teams Bunch Trimmer Mold Relationship Specialty Start Date End Date Loreta Lopez MD PCP - General 07/21/21 08/13/21 Sri Fajardo MD PCP - General Family Medicine 08/14/21 documented as of this encounter
--- OUTSIDE RECORDS SUMMARY | 2025-08-14 22:45 | XMS_ITS | Clinical Summary ---
Author Organization [facility] Address [address] [place] [address] Phone Care Team Providers Care Pumper Helper Name Role Phone Alexander Wiggins MD Primary Care Provider [phone] Inessa Guidry APRN, PROCEDURES RN Unavailable [phone] Allergies No known active allergies Medications Ulmer-3 Fatty Acids (FISH OIL) 1000 MG CAPSULE [...] Comments Blood Pressure 122/70 11/28/2016 10:30 AM SERVICE OFFICER Pulse 64 11/28/2016 10:30 AM SERVICE OFFICER Temperature 35.6 C (96.1 F) 11/28/2016 10:30 AM SERVICE OFFICER Respiratory Rate 18 11/28/2016 10:30 AM SERVICE OFFICER Oxygen Saturation 96% 11/28/2016 10:30 AM SERVICE OFFICER Inhaled Oxygen Concentration - - Weight 84.8 kg (187 lb) 10/31/2016 8:22 AM SERVICE OFFICER Height 185.4 cm (6' 1) 10/31/2016 8:22 AM SERVICE OFFICER Body Mass Index 24.67 10/31/2016 8:22 AM SERVICE OFFICER Plan of Treatment Health Maintenance Due Date [...] complete this topic Insurance MEDICARE Care Teams Pumper Helper Relationship Specialty Start Date End Date Alexander Wiggins MD [address] [place] [address] PCP - General Family Medicine 05/22/16 Inessa Guidry, FEED MILL LAB TECHNICIAN, PROCEDURES RN [address] [place] [address] Nurse Practitioner Advanced Practice Nurse 05/23/16
--- OUTSIDE RECORDS SUMMARY | 2025-08-14 22:45 | XMS_ITS | Clinical Summary ---
Author Organization [facility] [address] Address [address] [place] [address] Care Team Providers Care Mechanical Striper Name Role Phone Sri Fajardo MD Primary Care Provider Allergies Active Allergy Reactions Criticality Noted Date Comments Iwfyaic-Ajg-Zsc Reductase Inhibitors Other (See comments) Low Reaction: [...] mg SL tabletIndication s:Coronary artery disease involving [place] coronary artery of [place] heart without angina pectoris PLACE 1 TABLET [...] 03/17/2023 Assessment & Plan (09/29/2024 10:12 AM WOOD PROCESSING WORKER): Recommend statin therapy. Assessment & Plan (09/16/2023 [...] 07/11/2021 Assessment & Plan (09/29/2024 10:12 AM WOOD PROCESSING WORKER): Stable continue metoprolol. Assessment & Plan (09/16/2023 [...] 07/02/2021 Assessment & Plan (09/29/2024 10:12 AM WOOD PROCESSING WORKER): Status post endovascular abdominal aortic aneurysm repair [...] hold this. Coronary artery disease invo lving [place] coronary artery of [place] heart without angina pectoris 08/26/2017 Assessment & Plan (07/02/2021 1:37 PM CDT): Continue risk factor modification with aspirin, Brilinta, and beta-maryjane. Hx of CABG 08/26/2017 History of coronary artery stent placement 08/26 Assessment & Plan (07/02/2021 1:37 PM CDT): Continue dual anti-platelet as above. Idiopathic chronic pancreatitis 07/15/2012 Encounters Date Type Department Care Team Description 08/02/2025 11:30 AM CDT Office Visit [facility]iology at [address] [place] [address] Justen Champion MD Hx of [...] on file Legal Sex Male 7:26 AM WOOD PROCESSING WORKER Gender Identity Not on file Sexual Orientation [...] 01/29/2026 01/30/2016 Medical Devices Implanted Type Area Trestle Mechanic Device Identifier Shelf Expiration Date Model / Serial / Lot Medtronic U[employer] X [id number] Resolute [place] 5mm 2.1-2.7fr 30mm 140cm Rapid Exchange Radiopaque - [id number] Implanted:Qty: 1 on 05/31/2019 by Lance Gunter MD at [facility] N/A: Coronary Medtronic Inc 12/10/2019 [id number] / / [id number] Medtronic [employer] X [id number] Resolute [place] 5mm 2.1-2.7fr 30mm 140cm Rapid Exchange Radiopaque - [id number] Implanted:Qty: 1 on 05/31/2019 by Lance Gunter MD at [facility] N/A: Coronary Medtronic Inc 10/01/2020 [id number] / / [id number] Medtronic [employer] X [id number] Resolute [place] 2.5mm 2.1-2.7fr 18mm 140cm Rapid Exchange - [id number] Implanted:Qty: 1 on 05/31/2019 by Lance Gunter MD at [facility] N/A: Coronary Medtronic Inc 03/16/2020 [id number] / / [id number] Medtronic [employer] X [id number] Resolute [place] 2.75mm 2.1-2.7fr 26mm 140cm Rapid Exchange - [id number] Implanted:Qty: 1 on 05/31/2019 by Lance Gunter MD at [facility] N/A: Coronary Medtronic Inc 10/25/2020 [id number] / / [id number] Medtronic [employer] X [id number] Resolute [place] 5mm 2.1-2.7fr 18mm 140cm Rapid Exchange Radiopaque - [id number] Implanted:Qty: 1 on 05/31/2019 by Lance Gunter MD at [facility] N/A: Coronary Medtronic Inc 01/01/2020 [id number] / / [id number] Terumo Medical Alok 70-C6-76-100u Graft Treo Abd Aortic Stent 28mm Bifurcate 100mm - [id number] Implanted:Qty: 1 on 07/24/2021 by Isaak Lu MD at [facility] N/A: Aorta [employer]ok [id number] 12/14/2022 28-B2-28- 100U / / [id number] Graft Treo Abd Aortic Stent 15/20mm Leg Extension 140mm - [id number] Implanted:Qty: 1 on 07/24/2021 by Isaak Lu MD at [facility] N/A: Aorta [employer]ok [id number] 04/13/2024 28-L2-20- 140U / / [id number] Graft Treo Abd Aortic Stent 15/13mm Leg Extension 120mm - [id number] Implanted:Qty: 1 on 07/24/2021 by Isaak Lu MD at [facility] N/A: Aorta [employer]ok [id number] 01/03/2024 28-L2-13- 120U / / [id number] [employer] 57912-64 Perclose 6fr Suture Mediate Knot Push Vascular Device Closure - [id number] Implanted:Qty: 1 on 07/24/2021 by Isaak Lu MD at [facility] [employer] [id number] / / [employer] [id number] Perclose 6fr Suture Mediate Knot Push Vascular Device Closure - [id number] Implanted:Qty: 1 on 07/24/2021 by Isaak Lu MD at [facility] [employer] [id number] / / [employer] [id number] Perclose 6fr Suture Mediate Knot Push Vascular Device Closure - [id number] Implanted:Qty: 1 on 07/24/2021 by Isaak Lu MD at [facility] [employer] [id number] / / [employer] [id number] Perclose 6fr Suture Mediate Knot Push Vascular Device Closure - [id number] Implanted:Qty: 1 on 07/24/2021 by Isaak Lu MD at [facility] [employer] [id number] / / Procedures Procedure Name Priority Date/Time [...] Advance Directives For more information, please contact: [phone] * Full Code (Latest Code Status on File) Date Activated Date Inactivated Comments 07/24/2021 12:14 PM 07/25/2021 4:06 PM * Full Code Date Activated Date Inactivated Comments 05/31/2019 8:08 PM 06/01/2019 6:38 PM * Full Code Date Activated Date Inactivated Comments 05/31/2019 8:08 PM 05/31/2019 8:08 PM Care Teams Mechanical Striper Relationship Specialty Start Date End Date Sri Fajardo MD PCP - General Family Medicine 08/14/21
--- OUTSIDE RECORDS SUMMARY | 2025-08-14 22:45 | XMS_ITS | Patient Health Record ---
Author Organization [facility] Address [address] [facility] [address] [place] [address] Care Team Providers Care Director Of Exhibit Development Name Role Phone Justen Chappell Primary Care Provider [phone] Willis [place] Unavailable [phone] Allergies Allergen (clinical drug ingredient) Drug/Non Drug Allergy documented on EMR Reaction Allergy Type Onset Date Status Substance with 2-odhnblz-2-methylgluta ryl-coenzyme A reductase inhibitor mechanism of action [...] W/U Status Risk Notes Problem Essential hypertension (52353327) Unspecified essential hypertension (401.9) Active confirmed ([facility] ) Added By: Domonique Rodríguez Problem Atherosclerosis of coronary artery (373304445) Coronary atherosclerosis of unspecified type of vessel, [place] or graft (414.00) Active confirmed ([facility] ) Added By: Domonique Rodríguez Problem Chronic pancreatitis (007880464) Chronic pancreatitis (577.1) Active confirmed ([facility] ) Added By: Domonique Rodríguez Problem Essential hypertension (49296203) Essential hypertension (I10) Active confirmed Problem Gastroesophageal reflux disease (012756523) Gastroesophageal reflux disease, esophagitis presence not specified (K21.9) Active confirmed Problem Atherosclerosis of coronary artery without angina pectoris (601374940413208) Atherosclerosis of [place] coronary artery of [place] heart without angina pectoris (I25.10) Active confirmed Problem Chronic pancreatitis (461733417) Chronic pancreatitis, unspecified pancreatitis type (K86.1) Active confirmed Problem Idiopathic chronic pancreatitis (657342309) Idiopathic chronic pancreatitis (K86.1) Active confirmed Plan Of Treatment No Information Insurance Providers Payer Name Payer Address Payer Phone Subscriber Number Group Number Insured Name Patient Relationship to Insured Coverage Start Date Coverage End Date Medicare NGS [address] [place], [place] [id number] Kashif Rhodes Self - patient is the insured 4 Medicare Part B [address] [place], [place] [id number] Kashif Rhodes Self - patient is the insured 3 Medical (General) History Medical History History ICD Code hypertension Chronic pancreatitis CAD Surgical History Surgery Date(Month/Year) Colonoscopy 2013 Coronary artery bypass graft (CABG) Appendectomy Heart stent 11/2015 Hospitalization History Reason Date(Month/Year) Heart stent/heart attack 11/2015
[2025-08-14 22:57] VITALS: BP 99/76; PULSE 74; RESP 17; TEMP 36.6; O2SAT 97
--- OUTSIDE RECORDS SUMMARY | 2025-08-14 23:44 | XMS_ITS | Clinical Summary ---
Author Organization [facility] [address] Address [address] [place] [address] Care Team Providers Care Tool Crib Supervisor Name Role Phone Sri Fajardo MD Primary Care Provider Allergies Active Allergy Reactions Criticality Noted Date Comments Wdwknia-Vet-Ubh Reductase Inhibitors Other (See comments) Low Reaction: [...] mg SL tabletIndication s:Coronary artery disease involving [place] coronary artery of [place] heart without angina pectoris PLACE 1 TABLET [...] 03/17/2023 Assessment & Plan (09/29/2024 10:12 AM BEAM RACKER): Recommend statin therapy. Assessment & Plan (09/16/2023 [...] 07/11/2021 Assessment & Plan (09/29/2024 10:12 AM BEAM RACKER): Stable continue metoprolol. Assessment & Plan (09/16/2023 [...] 07/02/2021 Assessment & Plan (09/29/2024 10:12 AM BEAM RACKER): Status post endovascular abdominal aortic aneurysm repair [...] hold this. Coronary artery disease invo lving [place] coronary artery of [place] heart without angina pectoris 08/26/2017 Assessment & Plan (07/02/2021 1:37 PM CDT): Continue risk factor modification with aspirin, Brilinta, and beta-maryjane. Hx of CABG 08/26/2017 History of coronary artery stent placement 08/26 Assessment & Plan (07/02/2021 1:37 PM CDT): Continue dual anti-platelet as above. Idiopathic chronic pancreatitis 07/15/2012 Encounters Date Type Department Care Team Description 08/02/2025 11:30 AM CDT Office Visit [facility] Cardiology at [address] [place] [address] Justen Champion MD Hx of [...] on file Legal Sex Male 7:26 AM BEAM RACKER Gender Identity Not on file Sexual Orientation [...] 01/29/2026 01/30/2016 Medical Devices Implanted Type Area Research Lab Assistant Device Identifier Shelf Expiration Date Model / Serial / Lot Medtronic Usa Inc X [id number] Resolute [place] 5mm 2.1-2.7fr 30mm 140cm Rapid Exchange Radiopaque - [id number] Implanted:Qty: 1 on 05/31/2019 by Lance Gunter MD at [facility] N/A: Coronary Medtronic Inc 12/10/2019 [id number] 0UX / / [id number] Medtronic [employer] X [id number] Resolute [place] 5mm 2.1-2.7fr 30mm 140cm Rapid Exchange Radiopaque - [id number] Implanted:Qty: 1 on 05/31/2019 by Lance Gunter MD at [facility] N/A: Coronary Medtronic Inc 10/01/2020 [id number] 0UX / / [id number] Medtronic [employer] X [id number] Resolute [place] 2.5mm 2.1-2.7fr 18mm 140cm Rapid Exchange - [id number] Implanted:Qty: 1 on 05/31/2019 by Lance Gunter MD at [facility] N/A: Coronary Medtronic Inc 03/16/2020 [id number] 8UX / / [id number] Medtronic [employer] X [id number] Resolute [place] 2.75mm 2.1-2.7fr 26mm 140cm Rapid Exchange - [id number] Implanted:Qty: 1 on 05/31/2019 by Lance Gunter MD at [facility] N/A: Coronary Medtronic Inc 10/25/2020 [id number] / / [id number] Medtronic [employer] X [id number] Resolute [place] 5mm 2.1-2.7fr 18mm 140cm Rapid Exchange Radiopaque - [id number] Implanted:Qty: 1 on 05/31/2019 by Lance Gunter MD at [facility] N/A: Coronary Medtronic Inc 01/01/2020 [id number] 8UX / / [id number] Ter[employer]o Medical Alok 90-S7-05-100u Graft Treo Abd Aortic Stent 28mm Bifurcate 100mm - [id number] Implanted:Qty: 1 on 07/24/2021 by Isaak Lu MD at [facility] N/A: Aorta [employer]ok [id number] 12/14/2022 28-B2-28- 100U / / [id number] Graft Treo Abd Aortic Stent 15/20mm Leg Extension 140mm - [id number] Implanted:Qty: 1 on 07/24/2021 by Isaak Lu MD at [facility] N/A: Aorta [employer]ok [id number] 04/13/2024 28-L2-20- 140U / / [id number] Graft Treo Abd Aortic Stent 15/13mm Leg Extension 120mm - [id number] Implanted:Qty: 1 on 07/24/2021 by Isaak Lu MD at [facility] N/A: Aorta [employer]ok [id number] 01/03/2024 28-L2-13- 120U / / [id number] [employer] 89971-98 Perclose 6fr Suture Mediate Knot Push Vascular Device Closure - [id number] Implanted:Qty: 1 on 07/24/2021 by Isaak Lu MD at [facility] [employer] [id number] / / [employer]ascular [id number] Perclose 6fr Suture Mediate Knot Push Vascular Device Closure - [id number] Implanted:Qty: 1 on 07/24/2021 by Isaak Lu MD at [facility] [employer] [id number] / / [employer]ascular [id number] Perclose 6fr Suture Mediate Knot Push Vascular Device Closure - [id number] Implanted:Qty: 1 on 07/24/2021 by Isaak Lu MD at [facility] [employer] [id number] / / [employer]ascular [id number] Perclose 6fr Suture Mediate Knot Push Vascular Device Closure - [id number] Implanted:Qty: 1 on 07/24/2021 by Isaak Lu MD at [facility] [employer] [id number] / / Procedures Procedure Name Priority Date/Time [...] Advance Directives For more information, please contact: [phone] * Full Code (Latest Code Status on File) Date Activated Date Inactivated Comments 07/24/2021 12:14 PM 07/25/2021 4:06 PM * Full Code Date Activated Date Inactivated Comments 05/31/2019 8:08 PM 06/01/2019 6:38 PM * Full Code Date Activated Date Inactivated Comments 05/31/2019 8:08 PM 05/31/2019 8:08 PM Care Teams Tool Crib Supervisor Relationship Specialty Start Date End Date Sri Fajardo MD PCP - General Family Medicine 08/14/21
--- OUTSIDE RECORDS SUMMARY | 2025-08-14 23:44 | XMS_ITS | Clinical Summary ---
Author Organization [facility] Address [address] [place] [address] Phone Care Team Providers Care Staff Design Engineer Name Role Phone Alexander Wiggins MD Primary Care Provider [phone] Inessa Guidry APRN, TABLE MACHINE OPERATOR Unavailable [phone] Allergies No known active allergies Medications Sherwood-3 Fatty Acids (FISH OIL) 1000 MG CAPSULE [...] Comments Blood Pressure 122/70 11/28/2016 10:30 AM SILVER CHASER Pulse 64 11/28/2016 10:30 AM SILVER CHASER Temperature 35.6 C (96.1 F) 11/28/2016 10:30 AM SILVER CHASER Respiratory Rate 18 11/28/2016 10:30 AM SILVER CHASER Oxygen Saturation 96% 11/28/2016 10:30 AM SILVER CHASER Inhaled Oxygen Concentration - - Weight 84.8 kg (187 lb) 10/31/2016 8:22 AM SILVER CHASER Height 185.4 cm (6' 1) 10/31/2016 8:22 AM SILVER CHASER Body Mass Index 24.67 10/31/2016 8:22 AM SILVER CHASER Plan of Treatment Health Maintenance Due Date [...] complete this topic Insurance MEDICARE Care Teams Staff Design Engineer Relationship Specialty Start Date End Date Alexander Wiggins MD [address] [place] [address] PCP - General Family Medicine 05/22/16 Inessa Guidry, DIRECTOR SUPPLIER QUALITY, TABLE MACHINE OPERATOR [address] [place] [address] Nurse Practitioner Advanced Practice Nurse 05/23/16
--- OUTSIDE RECORDS SUMMARY | 2025-08-14 23:44 | XMS_ITS | Encounter Summary ---
Author Organization 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
[2025-08-15] MEDS: KETOROLAC 30 MG/ML VIAL (*BKC) 15 MG IM (00:05)
--- NOTE | 2025-08-15 02:58 | ED.BACK ---
HPI - Back Pain/Injury General Chief Complaint: Back Pain/Injury Stated Complaint: CHRONIC BACK PAIN Time Seen by Provider: 08/14/25 23:30 History of Present Illness HPI Narrative: Patient has chronic back pain, has been ongoing for years, and every time the weather changes and gets cold, he feels in his back. No focal numbness or weakness no saddle anesthesia or difficulty urinating. Related Data Home Medications ?Medication ?Instructions ?Recorded ?Confirmed ?Last Taken ?Type metoprolol succinate 50 mg 50 mg PO DAILY 11/29/19 07/26/25 Unknown History tablet,extended release 24 hr ticagrelor 90 mg tablet (Brilinta) 90 mg PO Q12H 11/29/19 07/26/25 Unknown History evolocumab 140 mg/mL subcutaneous 140 mg subcut [id number] 12/31/19 07/26/25 01/03/20 09:00 History pen injector (Jose Roberto Drake) isosorbide mononitrate 30 mg 30 mg PO DAILY 12/31/19 07/26/25 Unknown History tablet,extended release 24 hr omega-3 fatty acids 1,000 mg 1,000 mg PO DAILY 12/31/19 07/26/25 Unknown History capsule aspirin 81 mg tablet,delayed 81 mg PO DAILY 01/03/20 07/26/25 Unknown History release (Adult Low Dose Aspirin) famotidine 40 mg tablet (Pepcid) 40 mg PO DAILY 11/06/21 07/26/25 Unknown History Allergies Allergy/AdvReac Type Severity Reaction Status Date / Time Tfnntcw-ELK-XvP Reductase Allergy Unknown Unknown Verified 08/14/25 22:43 Inhibitor (Zubifob-Vpv-Yit Reductase Inhibitor) Review of Systems Review of Systems: All systems reviewed & are unremarkable except as noted in HPI and below ON LICENSE OF [facility] Past Medical History Medical History Prediabetes Low serum iron Chronic, continuous use of opioids Cirrhosis Previous liver biopsy confirming diagnosis. Apparently cryptogenic in etiology. GERD (gastroesophageal reflux disease) History of rectal polyps TIA (transient ischemic attack) Coronary artery disease Patient with history of premature coronary artery disease in his 40s. He is status post multivessel CABG. On several occasions he was taken to cardiac catheterization lab per Dr. Champion, and due to his complex disease he has at times required intervention at [place]. Chronic pancreatitis Hyperlipidemia Hypertension Surgical History Surgical History History of repair of aneurysm of abdominal aorta using endovascular stent graft x3 Status post appendectomy, follow-up exam Status post coronary artery bypass graft Hx of cardiac catheterization Last cardiac catheterization at this facility was May 31, [address] Champion. At that time it was noted that he had a patent stent to the circumflex. SVG to the OM and diagonal were apparently occluded. Juarez to LAD was patent. There was severe stenosis to a very large caliber vein graft to the RCA with 95 to 99% stenosis. This was deemed to be too high risk and he was transferred to [place], where a total of 6 stents were placed. History of tonsillectomy History of cholecystectomy History of heart artery stent x6 Family History Family History Mother Family history of cardiovascular disease Diabetes mellitus Myocardial infarct Sibling Diabetes mellitus Pancreatitis Social History Social History Social History: The patient lives in [place] with his . He designates his as his surrogate decision maker and he wishes to be a full code. 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 His primary care provider is Dr. Loreta Padilla. He smoked 1 to 2 cigars a day but quit in 2008 after his bypass. No alcohol or drug abuse. Smoking status: Former smoker (Quit 1989) Tobacco type: cigars Smoking end date: 06/24/09 Alcohol intake: never Substance use: never Substance use type: does not use Lack of Transportation: No Lack of Food: Never True Current Housing: I Have Housing Concerned About Future Housing: No Difficulty Paying Gas/Electric Bills: No Difficulty Paying for Meds: No Currently Unemployed: No Education: Trade/Vocational Certificate Difficulty w/ Childcare or Family Care: No Living arrangements: with family Additional living arrangements comments: Lives with . Occupation/Education: retired Gender identity (if verbalized by the patient): Male Sexual Orientation (if Verbalized by the Patient): Straight or Heterosexual Spiritual care concerns: No Agree to blood products: Yes Exam Narrative: EXAMINATION OF ORGAN SYSTEMS/BODY AREAS: Constitutional: Vital signs per nursing GENERAL:[No acute distress, non-toxic appearing.] HEAD: Normal with no signs of head trauma. EYES: EOMI, conjunctiva normal ENT: Hearing grossly intact LUNGS: Nonlabored breathing. HEART: [Regular rate and rhythm] ABD: [Soft], [nontender to palpation] EXT: Normal range of motion SKIN: [No rashes or lesions.] NEURO: [Alert and oriented x 3. No gross focal sensory or strength deficits.] Ambulating with normal steady gait PSYCH: Normal affect Course Vital Signs Vital signs: Vital Signs Temperature 98 F 08/14/25 22:57 Pulse Rate 74 08/14/25 22:57 Respiratory Rate 17 08/14/25 22:57 Blood Pressure 99/76 L 08/14/25 22:57 Pulse Oximetry 97 08/14/25 22:57 Oxygen Delivery Room Air 08/14/25 22:57 Temperature 98 F 08/14/25 22:57 Pulse Rate 74 08/14/25 22:57 Respiratory Rate 17 08/14/25 22:57 Blood Pressure 99/76 L 08/14/25 22:57 Pulse Oximetry 97 08/14/25 22:57 Oxygen Delivery Room Air 08/14/25 22:57 MDM - Back Pain/Injury MDM Narrative Medical decision making narrative: ED COURSE AND MEDICAL DECISION MAKINM with acute on chronic back pain. Normal motor and sensory exam. Patient able to ambulate. No evidence of acute cord compression, osteomyelitis/discitis or cauda equina without saddle anesthesia, urinary retention/incontinence, numbness/tingling in lower extremities, fever, history of IV drug use, cancer or immunosuppression. Doubt AAA or aortic dissection without severe pain/discomfort or any neurovascular deficits. [Ketorolac 15mg IM] given for symptomatic relief. At this time, I do not believe the patient requires imaging studies. Will reevaluate the need for further investigations after the medications. On reevaluation, the symptoms are improved. Patient is able to rest more comfortably. Ambulating without difficulty. I will trial a course of steroids since it sounds consistent with arthritis, given the chronicity and worsening in cold weather. [I discussed management of acute back pain in detail, explaining the need to remain active and the goals of pain control.] Patient is given return precautions and instructed to come back at any point in time for worsening pain, fevers, weakness, difficulty walking, urinary or fecal incontinence. I did also provide follow-up information for spine surgery. Patient expressed understanding of instructions. Discharge Plan Discharge Clinical Impression: Acute on chronic back pain Patient Disposition: Home Condition: Stable Instructions: Chronic Back Pain (DC) Additional Instructions: Please follow up with your doctor or with the spine surgeon; you can try the steroids as prescribed. You can always return for any further issues, especially if her pain worsens, if you develop new numbness or weakness, inability to walk, or anything else concerning. Patient Language: Nicaraguan Prescriptions: New prednisone 20 mg tablet 40 mg PO DAILY 4 Days Qty: 8 0RF No Action Repatha SureClick 140 mg/mL pen injector 140 mg SUB-Q [id number] Rx Instructions: SUBQ EVERY TWO WEEKS. isosorbide mononitrate 30 mg tablet extended release 24 hr 30 mg PO DAILY omega-3 fatty acids 1,000 mg capsule 1,000 mg PO DAILY famotidine [Pepcid] 40 mg tablet 40 mg PO DAILY montelukast 10 mg tablet 10 mg PO QHS Qty: 30 3RF nitroglycerin 0.4 mg tablet, sublingual 0.4 mg sublingual Q5M PRN (Reason: chest pain) Qty: 100 0RF Rx Instructions: do not exceed 3 doses per episode hydrocodone-acetaminophen 7.5-325 mg tablet 1 tablet PO Q6H PRN (Reason: pain) Qty: 120 0RF orphenadrine citrate 100 mg tablet extended release 100 mg PO Q12H PRN (Reason: muscle pain) 10 Days Qty: 20 0RF aspirin [Adult Low Dose Aspirin] 81 mg Tablet,Delayed Release (Dr/Ec) 81 mg PO DAILY lidocaine 4 % adhesive patch,medicated 1 patch topical DAILY PRN (Reason: pain) Qty: 10 0RF acetaminophen 500 mg capsule 1,000 mg PO Q6H PRN (Reason: pain) Qty: 30 0RF Brilinta 90 mg tablet 90 mg PO Q12H Rx Instructions: take 1 tablet by oral route 2 times every day metoprolol succinate 50 mg tablet extended release 24 hr 50 mg PO DAILY ergocalciferol (vitamin D2) 1,250 mcg (50,000 unit) capsule 1,250 mcg PO WEEKLY Qty: 14 3RF Creon 6,000-19,000 -30,000 unit capsule,delayed release(DR/EC) 1 cap PO TID Qty: 270 0RF niacin 1,000 mg tablet extended release 24 hr 1,000 mg PO .at bedtime Qty: 90 1RF methocarbamol 750 mg tablet 750 mg PO HS Qty: 30 0RF Follow-up/Referrals: Sri Fajardo MD [Primary Care Provider, Family Practice] Nathaniel Dumont MD [Physician, Neurosurgery] - 2 Days
== END 2025-08-15 00:15 | disposition home or self-care (01) ==
PROVIDERS: Emergency Provider Emergency Medicine; PCP Family Medicine
DX: M54.9 Dorsalgia, unspecified (principal); K21.9 Gastro-esophageal reflux disease without esophagitis; I25.10 Atherosclerotic heart disease of native coronary artery without angina pectoris; E78.5 Hyperlipidemia, unspecified; I10 Essential (primary) hypertension; Z86.73 Personal history of transient ischemic attack (TIA), and cerebral infarction without residual deficits
CPT/HCPCS: 96372; 99283; J1885; J7512

== ENCOUNTER 2025-08-28 14:01 | Inpatient (IN) | payer MEDICARE, SELFPAY ==
--- OUTSIDE RECORDS SUMMARY | 2000-05-05 08:15 | XMS_ITS | Continuity of Care Document ---
Author Organization [facility] Address [address] [place] [address] Phone Care Team Providers Care Insurance Sales Assistant Name Role Phone Riccardo Buenrostro Unavailable Unavailable Advance Directives Directive Yes / No Effective Date File Name No Information Encounters Encounter Description Practice Location Reason(s) For Visit Diagnoses Date Provider Providers Copied on Encounter [facility], [id number] [place] [address] [address], [place], [place], [id number], [place] tel:[phone] SEC [facility] No Information Apr- 2-200 0 Prachisy Riccardo. [address] [facility] , [address], [place], [address], [place]. tel:[phone] Family History Family Member Type Diagnosis Age At Onset No Information Payers Payer name Insurance type Covered alliance party ID Authoriza tion(s) [employer] SOI CI [id number] Social History Type Description Quantity Date Captured [...]
--- OUTSIDE RECORDS SUMMARY | 2000-05-05 08:15 | XMS_ITS | Continuity of Care Document ---
Author Organization [facility] Address [address] [place] [address] Phone Care Team Providers Care Curator Medical Museum Name Role Phone Riccardo Buenrostro Unavailable Unavailable Advance Directives Directive Yes / No Effective Date File Name No Information Encounters Encounter Description Practice Location Reason(s) For Visit Diagnoses Date Provider Providers Copied on Encounter [facility], [address] [place] [address] [address], [place], [place], [id number], [place] tel:[phone] SEC [facility] No Information Apr- 2-200 0 Prachisy Riccardo. [address] [facility] , [address], [place], [address], [place]. tel:[phone] Family History Family Member Type Diagnosis Age At Onset No Information Payers Payer name Insurance type Covered libertarian ID Authoriza tion(s) [employer] SOI CI [id number] Social History Type Description Quantity Date Captured [...]
[2025-08-28] VITALS (33 sets, daily range): BP systolic 85–109; BP diastolic 52–82; PULSE 97–132; RESP 11–22; TEMP 36.4–37.4; O2SAT 95–100; BMI 20.8
--- NOTE | ~2025-08-28 | CT_ITS ---
Kashif Rhodes EXAMINATION: CT abdomen pelvis w con COMPARISON: None HISTORY: vomiting/Sepsis TECHNIQUE: Axial images were obtained through the abdomen, pelvis post administration of IV contrast. Oral contrast was also administered. Coronal reconstruction images were obtained from the axial views. CT scan performed using dose optimization techniques including the following automated exposure control; adjustment of mA and/or kV; use of iterative reconstruction technique. Automatic exposure control was used to reduce radiation dose. Permanent radiation dose record is archived to PACS. FINDINGS: CT abdomen: LUNG BASES: Severe pulmonary fibrotic changes in the visualized lung bases with bilateral honeycombing. LIVER: Cirrhotic changes of the liver. Portal vein patent. No intrahepatic biliary duct dilatation. SPLEEN: Unremarkable. KIDNEYS: Right Kidney: Unremarkable. No calculi. No hydronephrosis. Left Kidney: Unremarkable. No calculi. No hydronephrosis ADRENAL GLANDS: Unremarkable. PANCREAS: Mild pancreatic atrophy. GALLBLADDER/BILIARY: Postcholecystectomy. STOMACH AND ESOPHAGUS: Visualized stomach and esophagus within normal limits. BOWEL/MESENTERY: No colitis or diverticulitis. Appendix not identified, no inflammation surrounding the cecum. No stranding within the mesentery. No thickened or dilated loops of small bowel. ADENOPATHY/RETROPERITONEUM: No lymphadenopathy. AORTA/VASCULATURE: Atherosclerotic changes of the aorta with endovascular stent placement. FREE FLUID OR FREE AIR: No free fluid.. CT pelvis: SOLID ORGANS/REPRODUCTIVE: Unremarkable. BLADDER: Within normal limits. OSSEOUS STRUCTURES: No sclerotic or lytic lesions. OVERLYING SOFT TISSUES: Small fat-containing left inguinal hernia. IMPRESSION: 1. No acute intra-abdominal process. Incidental findings above Reviewed, dictated and finalized at location P.
--- NOTE | ~2025-08-28 | XR_ITS ---
EXAMINATION: XR chest 1V portable DATE: 08/28/2025 21:04 INDICATION: Leukocytosis TECHNIQUE: frontal view of the chest was obtained. COMPARISON: Chest radiograph dated 01/03/[address] dated 05/23/2025 FINDINGS: Coarse reticular pattern at the periphery of the lower lung zones consistent with emphysema and usual interstitial pneumonia pattern chronic interstitial lung disease with honeycombing as seen on prior CT. No focal airspace opacities, pleural effusion or pneumothorax. Heart size is normal. Median sternotomy wires, ostial markers and mediastinal surgical clips consistent with prior coronary artery bypass grafting. There has also been coronary artery bypass grafting. IMPRESSION: 1. Coarse reticular opacities at the bilateral lung bases corresponding to emphysema and usual interstitial pneumonia (UIP) pattern chronic interstitial lung disease on prior CT. Reviewed, dictated and finalized at location A. IMPRESSION: 1. Coarse reticular opacities at the bilateral lung bases corresponding to emph ysema and usual interstitial pneumonia (UIP) pattern chronic interstitial lung disease on prior CT.
--- OUTSIDE RECORDS SUMMARY | 2025-08-28 14:03 | XMS_ITS | Clinical Summary ---
Author Organization [facility] [address] Address [address] [place] [address] Care Team Providers Care Emergency Room Technician Name Role Phone Sri Fajardo MD Primary Care Provider [phone] Allergies Active Allergy Reactions Criticality Noted Date Comments Gyliaec-Wcz-Pib Reductase Inhibitors Other (See comments) Low Reaction: [...] mg SL tabletIndication s:Coronary artery disease involving [place] coronary artery of [place] heart without angina pectoris PLACE 1 TABLET [...] 03/17/2023 Assessment & Plan (09/29/2024 10:12 AM CORPORATE ASSOCIATE ATTORNEY): Recommend statin therapy. Assessment & Plan (09/16/2023 [...] 07/11/2021 Assessment & Plan (09/29/2024 10:12 AM CORPORATE ASSOCIATE ATTORNEY): Stable continue metoprolol. Assessment & Plan (09/16/2023 [...] 07/02/2021 Assessment & Plan (09/29/2024 10:12 AM CORPORATE ASSOCIATE ATTORNEY): Status post endovascular abdominal aortic aneurysm repair [...] hold this. Coronary artery disease invo lving [place] coronary artery of [place] heart without angina pectoris 08/26/2017 Assessment & Plan (07/02/2021 1:37 PM CDT): Continue risk factor modification with aspirin, Brilinta, and beta-maryjane. Hx of CABG 08/26/2017 History of coronary artery stent placement 08/26 Assessment & Plan (07/02/2021 1:37 PM CDT): Continue dual anti-platelet as above. Idiopathic chronic pancreatitis 07/15/2012 Encounters Date Type Department Care Team Description 08/02/2025 11:30 AM CDT Office Visit [facility] Cardiology at [address] [place] [address] Jutsen Champion MD Hx of CABG (Primary Dx); [...] on file Legal Sex Male 7:26 AM CORPORATE ASSOCIATE ATTORNEY Gender Identity Not on file Sexual Orientation [...] 01/29/2026 01/30/2016 Medical Devices Implanted Type Area Grey Inspector Device Identifier Shelf Expiration Date Model / Serial / Lot Med[employer]onic [employer] X [id number] Resolute [place] 5mm 2.1-2.7fr 30mm 140cm Rapid Exchange Radiopaque - [id number] Implanted:Qty: 1 on 05/31/2019 by Lance Gunter MD at [facility] N/A: Coronary Medtronic Inc 12/10/2019 [id number] / / [id number] [employer] X [id number] Resolute [place] 5mm 2.1-2.7fr 30mm 140cm Rapid Exchange Radiopaque - [id number] Implanted:Qty: 1 on 05/31/2019 by Lance Gunter MD at [facility] N/A: Coronary Medtronic Inc 10/01/2020 [id number] / / [id number] [employer] X [id number] Resolute [place] 2.5mm 2.1-2.7fr 18mm 140cm Rapid Exchange - [id number] Implanted:Qty: 1 on 05/31/2019 by Lance Gunter MD at [facility] N/A: Coronary Medtronic Inc 03/16/2020 [id number] / / [id number] [employer] X [id number] Resolute [place] 2.75mm 2.1-2.7fr 26mm 140cm Rapid Exchange - [id number] Implanted:Qty: 1 on 05/31/2019 by Lance Gunter MD at [facility] N/A: Coronary Medtronic Inc 10/25/2020 [id number] / / [id number] [employer] X [id number] Resolute [place] 5mm 2.1-2.7fr 18mm 140cm Rapid Exchange Radiopaque - [id number] Implanted:Qty: 1 on 05/31/2019 by Lance Gunter MD at [facility] N/A: Coronary Medtronic Inc 01/01/2020 [id number] / / [id number] Ter[employer] Alok 18-M1-99-100u Graft Treo Abd Aortic Stent 28mm Bifurcate 100mm - [id number] Implanted:Qty: 1 on 07/24/2021 by Isaak Lu MD at [facility] N/A: Aorta [employer]ok [id number] 12/14/2022 28-B2-28- 100U / / [id number] Graft Treo Abd Aortic Stent 15/20mm Leg Extension 140mm - [id number] Implanted:Qty: 1 on 07/24/2021 by Isaak Lu MD at [facility] N/A: Aorta [employer]ok [id number] 04/13/2024 28-L2-20- 140U / / [id number] Graft Treo Abd Aortic Stent 15/13mm Leg Extension 120mm - [id number] Implanted:Qty: 1 on 07/24/2021 by Isaak Lu MD at [facility] N/A: Aorta [employer]ok [id number] 01/03/2024 28-L2-13- 120U / / [id number] [employer] [id number] Perclose 6fr Suture Mediate Knot Push Vascular Device Closure - [id number] Implanted:Qty: 1 on 07/24/2021 by Isaak Lu MD at [facility] [employer] [id number] / / [employer] [id number] Perclose 6fr Suture Mediate Knot Push Vascular Device Closure - [id number] Implanted:Qty: 1 on 07/24/2021 by Isaak Lu MD at [facility] [employer] [id number] / / [employer] [id number] Perclose 6fr Suture Mediate Knot Push Vascular Device Closure - [id number] Implanted:Qty: 1 on 07/24/2021 by Isaak Lu MD at [facility] [employer] [id number] / / [employer] [id number] Perclose 6fr Suture Mediate Knot Push Vascular Device Closure - [id number] Implanted:Qty: 1 on 07/24/2021 by Isaak Lu MD at [facility] [employer] [id number] / / Procedures Procedure Name Priority Date/Time [...] Advance Directives For more information, please contact: [phone] * Full Code (Latest Code Status on File) Date Activated Date Inactivated Comments 07/24/2021 12:14 PM 07/25/2021 4:06 PM * Full Code Date Activated Date Inactivated Comments 05/31/2019 8:08 PM 06/01/2019 6:38 PM * Full Code Date Activated Date Inactivated Comments 05/31/2019 8:08 PM 05/31/2019 8:08 PM Care Teams Emergency Room Technician Relationship Specialty Start Date End Date Sri Fajardo MD PCP - General Family Medicine 08/14/21
--- OUTSIDE RECORDS SUMMARY | 2025-08-28 14:03 | XMS_ITS | Clinical Summary ---
Author Organization [facility] Address [address] Attn: Epic Prelude ADT [place] [address] Care Team Providers Care Baseball Pitcher Name Role Phone Unavailable Primary Care Provider [...] every 14 (fourteen) days 2 mL 11 08/27/2025 11:43 AM CDT 5 Active Social History Tobacco Use [...]
--- OUTSIDE RECORDS SUMMARY | 2025-08-28 14:04 | XMS_ITS | Encounter Summary ---
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
--- OUTSIDE RECORDS SUMMARY | 2025-08-28 14:04 | XMS_ITS | Clinical Summary ---
Author Organization [facility] Address [address] [place] [address] Phone Care Team Providers Care Wireless Watcher Name Role Phone Alexander Wiggins MD Primary Care Provider [phone] Inessa Guidry APRN, [employer]IONS ARCHITECT Unavailable [phone] Allergies No known active allergies Medications [place]-3 Fatty Acids (FISH OIL) 1000 MG CAPSULE [...] Comments Blood Pressure 122/70 11/28/2016 10:30 AM PARKING ATTENDANT Pulse 64 11/28/2016 10:30 AM PARKING ATTENDANT Temperature 35.6 C (96.1 F) 11/28/2016 10:30 AM PARKING ATTENDANT Respiratory Rate 18 11/28/2016 10:30 AM PARKING ATTENDANT Oxygen Saturation 96% 11/28/2016 10:30 AM PARKING ATTENDANT Inhaled Oxygen Concentration - - Weight 84.8 kg (187 lb) 10/31/2016 8:22 AM PARKING ATTENDANT Height 185.4 cm (6' 1) 10/31/2016 8:22 AM PARKING ATTENDANT Body Mass Index 24.67 10/31/2016 8:22 AM PARKING ATTENDANT Plan of Treatment Health Maintenance Due Date Last Done Comments Hepatitis C Virus (HCV) Screening 1960 TdaP Immunization 1960 Cologuard 2005 Colonoscopy 2005 Colorectal Cancer Screening 2005 Immunochemical Fecal Occult Blood 2005 Pneumococcal Immunization (5 0+ years) (1 of 1 - PCV) 2010 Zoster Immunization (1 of 2) 2010 Influenza Immunization (#1) 2025 10/23/2015 SARS-COV-2 Immunization (1 - 2023- season) 2025 Respiratory Syncytial Virus (RSV) Immunization (Adult) (1 [...] complete this topic Insurance MEDICARE Care Teams Wireless Watcher Relationship Specialty Start Date End Date Alexander Wiggins MD [address] [place] [address] PCP - General Family Medicine 05/22/16 Inessa Guidry, ROLLOFF DRIVER, MICROSO[employer] SOLUTIONS ARCHITECT [address] [place] [address] Nurse Practitioner Advanced Practice Nurse 05/23/16
--- OUTSIDE RECORDS SUMMARY | 2025-08-28 14:04 | XMS_ITS | Patient Health Record ---
Author Organization [facility] Address [address] [address] [place] [address] Care Team Providers Care Sales Consultant Insurance Name Role Phone Justen Chappell Primary Care Provider Willis Vail Unavailable [phone] Allergies Allergen (clinical drug ingredient) Drug/Non Drug Allergy documented on EMR Reaction Allergy Type Onset Date Status Substance with 8-kxzneqa-7-methylgluta ryl-coenzyme A reductase inhibitor mechanism of action [...] W/U Status Risk Notes Problem Essential hypertension (28873983) Unspecified essential hypertension (401.9) Active confirmed ([facility] ) Added By: Domonique Rodríguez Problem Atherosclerosis of coronary artery (459775201) Coronary atherosclerosis of unspecified type of vessel, buckland or graft (414.00) Active confirmed ([facility] ) Added By: Domonique Rodríguez Problem Chronic pancreatitis (066135328) Chronic pancreatitis (577.1) Active confirmed ([facility] ) Added By: Domonique Rodríguez Problem Essential hypertension (90561867) Essential hypertension (I10) Active confirmed Problem Gastroesophageal reflux disease (902531006) Gastroesophageal reflux disease, esophagitis presence not specified (K21.9) Active confirmed Problem Atherosclerosis of coronary artery without angina pectoris (920121707216846) Atherosclerosis of buck[place] coronary artery of buck[place] heart without angina pectoris (I25.10) Active confirmed Problem Chronic pancreatitis (375934898) Chronic pancreatitis, unspecified pancreatitis type (K86.1) Active confirmed Problem Idiopathic chronic pancreatitis (927816641) Idiopathic chronic pancreatitis (K86.1) Active confirmed Plan Of Treatment No Information Insurance Providers Payer Name Payer Address Payer Phone Subscriber Number Group Number Insured Name Patient Relationship to Insured Coverage Start Date Coverage End Date Medicare NGS [address] [place], [place] [id number] Kashif Rhodes Self - patient is the insured 4 Medicare Part B [address] [place], [place] [id number] Kashif Rhodes Self - patient is the insured 3 Medical (General) History Medical History History ICD Code hypertension Chronic pancreatitis CAD Surgical History Surgery Date(Month/Year) Heart stent 11/2015 Coronary artery bypass graft (CABG) Colonoscopy 2014 Appendectomy Hospitalization History Reason Date(Month/Year) Heart stent/heart attack 11/2015
--- OUTSIDE RECORDS SUMMARY | 2025-08-28 14:44 | XMS_ITS | Clinical Summary ---
Author Organization [facility] Address [address] [place] [address] Phone Care Team Providers Care Director Of Recreation Therapy Name Role Phone Alexander Wiggins MD Primary Care Provider [phone] Inessa Guidry APRN, RETAIL AIDE Unavailable [phone] Allergies No known active allergies Medications [place]-3 Fatty Acids (FISH OIL) 1000 MG CAPSULE [...] Comments Blood Pressure 122/70 11/28/2016 10:30 AM FINANCIAL SERVICES PROFESSIONAL Pulse 64 11/28/2016 10:30 AM FINANCIAL SERVICES PROFESSIONAL Temperature 35.6 C (96.1 F) 11/28/2016 10:30 AM FINANCIAL SERVICES PROFESSIONAL Respiratory Rate 18 11/28/2016 10:30 AM FINANCIAL SERVICES PROFESSIONAL Oxygen Saturation 96% 11/28/2016 10:30 AM FINANCIAL SERVICES PROFESSIONAL Inhaled Oxygen Concentration - - Weight 84.8 kg (187 lb) 10/31/2016 8:22 AM FINANCIAL SERVICES PROFESSIONAL Height 185.4 cm (6' 1) 10/31/2016 8:22 AM FINANCIAL SERVICES PROFESSIONAL Body Mass Index 24.67 10/31/2016 8:22 AM FINANCIAL SERVICES PROFESSIONAL Plan of Treatment Health Maintenance Due Date [...] complete this topic Insurance MEDICARE Care Teams Director Of Recreation Therapy Relationship Specialty Start Date End Date Alexander Wiggins MD [address] [place] [address] PCP - General Family Medicine 05/22/16 Inessa Guidry, HORSE RACETRACK MANAGER, RETAIL AIDE [address] [place] [address] Nurse Practitioner Advanced Practice Nurse 05/23/16
--- OUTSIDE RECORDS SUMMARY | 2025-08-28 14:44 | XMS_ITS | Clinical Summary ---
Author Organization [facility] [address] Address [address] [place] [address] Care Team Providers Care Superintendent Tests Name Role Phone Sri Fajardo MD Primary Care Provider [phone] Allergies Active Allergy Reactions Criticality Noted Date Comments Meuptuq-Hki-Zdi Reductase Inhibitors Other (See comments) Low Reaction: [...] mg SL tabletIndication s:Coronary artery disease involving elem coronary artery of elem heart without angina pectoris PLACE 1 TABLET [...] 03/17/2023 Assessment & Plan (09/29/2024 10:12 AM PEARL RESTORER): Recommend statin therapy. Assessment & Plan (09/16/2023 [...] 07/11/2021 Assessment & Plan (09/29/2024 10:12 AM PEARL RESTORER): Stable continue metoprolol. Assessment & Plan (09/16/2023 [...] 07/02/2021 Assessment & Plan (09/29/2024 10:12 AM PEARL RESTORER): Status post endovascular abdominal aortic aneurysm repair [...] hold this. Coronary artery disease invo lving elem coronary artery of elem heart without angina pectoris 08/26/2017 Assessment & Plan (07/02/2021 1:37 PM CDT): Continue risk factor modification with aspirin, Brilinta, and beta-maryjane. Hx of CABG 08/26/2017 History of coronary artery stent placement 08/26 Assessment & Plan (07/02/2021 1:37 PM CDT): Continue dual anti-platelet as above. 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 Gender Identity Not on file Sexual Orientation [...] 01/29/2026 01/30/2016 Medical Devices Implanted Type Area Hair Dryer Device Identifier Shelf Expiration Date Model / Serial / Lot Med[employer]onic [employer] X [id number] Resolute Miguel 5mm 2.1-2.7fr 30mm 140cm Rapid Exchange Radiopaque - [id number] Implanted:Qty: 1 on 05/31/2019 by Lance Gunter MD at [facility] N/A: Coronary Medtronic Inc 12/10/2019 [id number] / / [id number] [employer] X [id number] Resolute Mccormick 5mm 2.1-2.7fr 30mm 140cm Rapid Exchange Radiopaque - [id number] Implanted:Qty: 1 on 05/31/2019 by Lance Gunter MD at [facility] N/A: Coronary Medtronic Inc 10/01/2020 [id number] / / [id number] [employer]onic [employer] X [id number] Resolute Mccormick 2.5mm 2.1-2.7fr 18mm 140cm Rapid Exchange - [id number] Implanted:Qty: 1 on 05/31/2019 by Lance Gunter MD at [facility] N/A: Coronary Medtronic Inc 03/16/2020 [id number] 8UX / / [id number] [employer] X [id number] Resolute Miguel 2.75mm 2.1-2.7fr 26mm 140cm Rapid Exchange - [id number] Implanted:Qty: 1 on 05/31/2019 by Lance Gunter MD at [facility] N/A: Coronary Medtronic Inc 10/25/2020 [id number] 6UX / / [id number] [employer] X [id number] Resolute Miguel 5mm 2.1-2.7fr 18mm 140cm Rapid Exchange Radiopaque - [id number] Implanted:Qty: 1 on 05/31/2019 by Lance Gunter MD at [facility] N/A: Coronary Medtronic Inc 01/01/2020 [id number] 8UX / / [id number] [employer] [id number] Graft Treo Abd Aortic Stent 28mm Bifurcate 100mm - [id number] Implanted:Qty: 1 on 07/24/2021 by Isaak Lu MD at [facility] N/A: Aorta [employer] [id number] 12/14/2022 28-B2-28- 100U / / [id number] Graft Treo Abd Aortic Stent 15/20mm Leg Extension 140mm - [id number] Implanted:Qty: 1 on 07/24/2021 by Isaak Lu MD at [facility] N/A: Aorta [employer] [id number] 04/13/2024 28-L2-20- 140U / / [id number] Graft Treo Abd Aortic Stent 15/13mm Leg Extension 120mm - [id number] Implanted:Qty: 1 on 07/24/2021 by Isaak Lu MD at [facility] N/A: Aorta [employer] [id number] 01/03/2024 28-L2-13- 120U / / [id number] [employer] [id number] Perclose 6fr Suture Mediate Knot Push Vascular Device Closure - [id number] Implanted:Qty: 1 on 07/24/2021 by Isaak Lu MD at [facility] [employer] [id number] / / [employer] [id number] Perclose 6fr Suture Mediate Knot Push Vascular Device Closure - [id number] Implanted:Qty: 1 on 07/24/2021 by Isaak Lu MD at [facility] [employer] [id number] / / [employer] [id number] Perclose 6fr Suture Mediate Knot Push Vascular Device Closure - [id number] Implanted:Qty: 1 on 07/24/2021 by Isaak Lu MD at [facility] [employer] [id number] / / [employer] [id number] Perclose 6fr Suture Mediate Knot Push Vascular Device Closure - [id number] Implanted:Qty: 1 on 07/24/2021 by Isaak Lu MD at [facility] [employer] [id number] / / Procedures Procedure Name Priority Date/Time [...] Advance Directives For more information, please contact: [phone] * Full Code (Latest Code Status on File) Date Activated Date Inactivated Comments 07/24/2021 12:14 PM 07/25/2021 4:06 PM * Full Code Date Activated Date Inactivated Comments 05/31/2019 8:08 PM 06/01/2019 6:38 PM * Full Code Date Activated Date Inactivated Comments 05/31/2019 8:08 PM 05/31/2019 8:08 PM Care Teams Superintendent Tests Relationship Specialty Start Date End Date Sri Fajardo MD PCP - General Family Medicine 08/14/21
--- OUTSIDE RECORDS SUMMARY | 2025-08-28 14:44 | XMS_ITS | Encounter Summary ---
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
--- NOTE | 2025-08-28 14:45 | ECG_ITS ---
Test Date: 2025-08-28 15:17:11 Measurements Intervals Grace Rate: 125 P: 65 ID: 143 QRS: 3 QRSD: 103 T: 31 QT: 291 QTc: 420 Interpretive Statements SINUS TACHYCARDIA RIGHT BUNDLE BRANCH BLOCK ABNORMAL ECG Compared to ECG 05/23/2025 01:28:00 HEART RATE HAS INCREASED Electronically Signed On 08-28-2025 19:26:01 CDT by Familia Zuleta D.O.
[2025-08-28] MEDS: SODIUM CHLORIDE 0.9% IV 1,000 ML 999 ML IV CONT ×3 (15:20→17:53)
[2025-08-28 15:21] LABS: Hematocrit 29.6 % (42.0-52.0); Hemoglobin 9.6 g/dL (14.0-18.0); Mean Corpuscular HGB Conc 32.4 g/dl (32-36); Mean Corpuscular Hemoglobin 31.9 pg (26-34); Mean Corpuscular Volume 98.3 fl (80-100); Platelet Count Result 149 k/mm3 (150-375); Red Blood Count 3.01 M/mm3 (4.6-6.20); White Blood Count 42.2 K/mm3 (4.5-10.0)
--- NOTE | 2025-08-28 15:35 | ED.NAVMDI ---
HPI - Nausea/Vomiting/Diarrhea General Chief complaint: Nausea/Vomiting/Diarrhea Stated complaint: n/v Time Seen by Provider: 08/28/25 14:34 History of Present Illness HPI Narrative: Patient is a 64-year-old male who presents ER with weakness beginning today. Reports he does not have the strength to get up and move around. He has had vomiting last night and today after eating some Omani food. 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 He has had some sweats but no documented fevers. No known sick contacts. No diarrhea. No dyspnea or productive cough. Related Data Home Medications ?Medication ?Instructions ?Recorded ?Confirmed ?Last Taken ?Type metoprolol succinate 50 mg 50 mg PO DAILY 11/29/19 07/26/25 Unknown History tablet,extended release 24 hr ticagrelor 90 mg tablet (Brilinta) 90 mg PO Q12H 11/29/19 07/26/25 Unknown History evolocumab 140 mg/mL subcutaneous 140 mg subcut [id number] 12/31/19 07/26/25 01/03/20 09:00 History pen injector (Repatha SureClick) isosorbide mononitrate 30 mg 30 mg PO DAILY 12/31/19 07/26/25 Unknown History tablet,extended release 24 hr omega-3 fatty acids 1,000 mg 1,000 mg PO DAILY 12/31/19 07/26/25 Unknown History capsule aspirin 81 mg tablet,delayed 81 mg PO DAILY 01/03/20 07/26/25 Unknown History release (Adult Low Dose Aspirin) famotidine 40 mg tablet (Pepcid) 40 mg PO DAILY 11/06/21 07/26/25 Unknown History Allergies Allergy/AdvReac Type Severity Reaction Status Date / Time Agryfuz-RTO-TaE Reductase Allergy Unknown Unknown Verified 08/28/25 14:08 Inhibitor (Cdfjlaw-Dbh-Gje Reductase Inhibitor) Review of Systems Review of Systems: All systems reviewed & are unremarkable except as noted in HPI and below Constitutional: Constitutional: Reports no additional constitutional complaints ENT: Reports system reviewed and no additional complaints, except as documented Cardiovascular: Cardiovascular: Reports no additional cardiovascular complaints Respiratory: Respiratory: Reports no additional respiratory complaints Gastrointestinal: Gastrointestinal: Reports no additional gastrointestinal complaints Musculoskeletal: Musculoskeletal: Reports no additional musculoskeletal complaints PMFSH Past Medical History Medical History Prediabetes Low serum iron Chronic, continuous use of opioids Cirrhosis Previous liver biopsy confirming diagnosis. Apparently cryptogenic in etiology. GERD (gastroesophageal reflux disease) History of rectal polyps TIA (transient ischemic attack) Coronary artery disease Patient with history of premature coronary artery disease in his 40s. He is status post multivessel CABG. On several occasions he was taken to cardiac catheterization lab per Dr. Champion, and due to his complex disease he has at times required intervention at [place]. Chronic pancreatitis Hyperlipidemia Hypertension Surgical History Surgical History (Updated 08/28/25 @ 19:20 by Genevieve Metcalf APRN) History of repair of aneurysm of abdominal aorta using endovascular stent graft x3 Status post appendectomy, follow-up exam Status post coronary artery bypass graft 6 Hx of cardiac catheterization Last cardiac catheterization at this facility was May 31, [address] Champion. At that time it was noted that he had a patent stent to the circumflex. SVG to the OM and diagonal were apparently occluded. Juarez to LAD was patent. There was severe stenosis to a very large caliber vein graft to the RCA with 95 to 99% stenosis. This was deemed to be too high risk and he was transferred to [place], where a total of 6 stents were placed.total of 9 stents History of tonsillectomy History of cholecystectomy History of heart artery stent x6 Family History Family History Mother Family history of cardiovascular disease Diabetes mellitus Myocardial infarct Sibling Diabetes mellitus Pancreatitis Social History Social History Social History: The patient lives in [place] with his . He designates his as his surrogate decision maker and he wishes to be a full code. 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 His primary care provider is Dr. Loreta Padilla. He smoked 1 to 2 cigars a day but quit in 2008 after his bypass. No alcohol or drug abuse. Smoking status: Former smoker (Quit 1989) Tobacco type: cigars Smoking end date: 06/24/09 Alcohol intake: never Substance use: never Substance use type: does not use Lack of Transportation: No Lack of Food: Never True Current Housing: I Have Housing Concerned About Future Housing: No Difficulty Paying Gas/Electric Bills: No Difficulty Paying for Meds: No Currently Unemployed: No Education: Trade/Vocational Certificate Difficulty w/ Childcare or Family Care: No Living arrangements: with family Additional living arrangements comments: Lives with . Occupation/Education: retired Gender identity (if verbalized by the patient): Male Sexual Orientation (if Verbalized by the Patient): Straight or Heterosexual Spiritual care concerns: No Agree to blood products: Yes Exam Narrative: GENERAL: Well-appearing, well-nourished, and in no acute distress. HEAD: Normocephalic, atraumatic. ENT: Mucous membranes moist. CHEST: Clear to auscultation. No respiratory distress. HEART: Tachycardic and regular. Normal peripheral pulses. ABDOMEN: Soft, nontender, nondistended. Dark black stool that is Hemoccult positive. EXTREMITIES: Normal range of motion. No edema. SKIN: Warm, dry, no rash. NEURO: Alert and oriented x3. PSYCH: Normal mood and affect. Course Course Emergency Course: Patient admitted to the hospitalist service. Concerns for sepsis so antibiotic started. Patient is guaiac positive from below. He reports he had been eating a lot of blueberries blackberries and thought they were just hitting him hard. It is more likely he has developed a ulcer with bleeding related to the prednisone he has been taking over last week. He is on Brilinta Patient has had no bloody bowel movements in ER and no episodes of hematemesis. His hemoglobin dropped after 3 L of IV fluid were given. Is now in a critical range so 2 units of packed red blood cells will be ordered. Blood pressure 107/64, heart rate of 112 beats per minute. Vital Signs Vital signs: Vital Signs Temperature 97.6 F 08/28/25 14:04 Pulse Rate 132 H 08/28/25 14:04 Respiratory Rate 20 08/28/25 14:04 Blood Pressure 85/52 L 08/28/25 14:04 Pulse Oximetry 98 08/28/25 14:04 Oxygen Delivery Room Air 08/28/25 14:04 Temperature 97.6 F 08/28/25 14:04 Pulse Rate 105 H 08/28/25 19:00 Respiratory Rate 16 08/28/25 19:00 Blood Pressure 91/65 L 08/28/25 19:00 Pulse Oximetry 99 08/28/25 19:00 Oxygen Delivery Room Air 08/28/25 14:04 MDM - Nausea/Vomiting/Diarrhea Lab Data 08/28/25 18:45 08/28/25 16:10 Labs: Lab Results 08/28/25 08/28/25 08/28/25 Range/Units 15:12 16:10 16:28 WBC 42.2 H (4.5-10.0) K/mm3 RBC 3.01 L (4.6-6.20) M/mm3 Hgb 9.6 L D (14.0-18.0) g/dL Hct 29.6 L (42.0-52.0) % MCV 98.3 (80-100) fl MCH 31.9 (26-34) pg MCHC 32.4 (32-36) g/dl RDW 14.9 H (11.5-14.5) % Plt Count 149 L (150-375) k/mm3 MPV 11.1 H (7.4-10.4) fl Immature Gran % (Auto) Not Reportable Neut % (Auto) Not Reportable Lymph % (Auto) Not Reportable [place]ville % (Auto) Not Reportable Eos % (Auto) Not Reportable Baso % (Auto) Not Reportable Lymph # (Auto) Not Reportable [place] # (Auto) Not Reportable Eos # (Auto) Not Reportable Baso # (Auto) Not Reportable Abs Immat Gran (auto) Not Reportable Absolute Neuts (auto) Not Reportable Absolute Nucleated RBC Not Reportable Total Counted 100 Neutrophils % (Manual) 76 H (46-73) % Band Neutrophils % 4 (0-6) % Lymphocytes % (Manual) 10 L (18-44) % Monocytes % (Manual) 4 (3-9) % Basophils % (Manual) 1 (0-1) % Metamyelocytes % 3 % Myelocytes % Not Reportable Promyelocytes % (Man) 2 % Nucleated RBC % Not Reportable Abs Neuts (Manual) 33.76 H (1.3-6.7) K/mm3 Abs Lymphs (Manual) 4.22 (1.1-4.5) K/mm3 Abs Monocytes (Manual) 1.68 H (0.1-0.90) K/mm3 Abs Basophils (Manual) 0.42 H (0.0-0.1) K/mm3 Nucleated RBCs 3 % Platelet Estimate Adequate (Adequate) % Immature Plt Fraction (0.9-11.2) % Basophilic Stippling Occasional Anisocytosis 1+ Macrocytosis 1+ (NORMAL) Schistocytes None seen Sodium 134 L (137-145) mmol/L Potassium 5.5 H (3.4-5.0) mmol/L Chloride 106 (98-107) mmol/L Carbon Dioxide 24 (22-30) mmol/L Anion Gap 4 (4-12) mmol/L BUN 46 H D (9-20) mg/dL Creatinine 0.72 (0.7-1.3) mg/dL Estim Creat Clear Calc 83 ml/min Estimated GFR > 60 (59 - ) Glucose 139 H (65-110) mg/dL Lactic Acid 5.2 H* (0.7-2.0) mmol/L Calcium 9.1 (8.4-10.2) mg/dL Total Bilirubin 0.4 (0.2-1.3) mg/dL AST 63 H (17-59) U/L ALT 103 H (6-50) U/L Alkaline Phosphatase 71 (38-126) U/L Total Protein 5.3 L (6.3-8.2) g/dL Albumin 2.5 L (3.5-5.1) g/dL Lipase 28 (23-300) U/L Urine Color Yellow (Yellow) Urine Appearance Clear (Clear) Urine pH 6.0 (5.0-9.0) Ur Specific Aurora 1.017 (1.001-1.035) Urine Protein Negative (Negative) mg/dL Urine Glucose (UA) Negative (Negative) mg/dL Urine Ketones Negative (Negative) mg/dL Ur Blood (Man) Negative (Negative) Urine Nitrate Negative (Negative) Urine Bilirubin Negative (Negative) Urine Urobilinogen 0.2 (<2.0) mg/dL Leukocyte Esterase Rfl Negative (Negative) ORTIZ/UL Blood Type Antibody Screen Crossmatch 08/28/25 08/28/25 Range/Units 17:34 18:45 WBC 25.8 H (4.5-10.0) K/mm3 RBC 2.07 L (4.6-6.20) M/mm3 Hgb 6.7 L* (14.0-18.0) g/dL Hct 20.6 L* (42.0-52.0) % MCV 99.5 (80-100) fl MCH 32.4 (26-34) pg MCHC 32.5 (32-36) g/dl RDW 14.7 H (11.5-14.5) % Plt Count 95 L (150-375) k/mm3 MPV 10.6 H (7.4-10.4) fl Immature Gran % (Auto) 8.2 H Neut % (Auto) 75.1 H Lymph % (Auto) 8.8 L Granville % (Auto) 7.5 Eos % (Auto) 0.2 Baso % (Auto) 0.2 Lymph # (Auto) 2.27 [place]ville # (Auto) 1.9 H Eos # (Auto) 0.0 Baso # (Auto) 0.1 Abs Immat Gran (auto) 2.11 H Absolute Neuts (auto) 19.3 H Absolute Nucleated RBC 0.180 H Total Counted Neutrophils % (Manual) (46-73) % Band Neutrophils % Not Reportable (0-6) % Lymphocytes % (Manual) (18-44) % Monocytes % (Manual) (3-9) % Basophils % (Manual) (0-1) % Metamyelocytes % % Myelocytes % Promyelocytes % (Man) % Nucleated RBC % 0.7 H Abs Neuts (Manual) (1.3-6.7) K/mm3 Abs Lymphs (Manual) (1.1-4.5) K/mm3 Abs Monocytes (Manual) (0.1-0.90) K/mm3 Abs Basophils (Manual) (0.0-0.1) K/mm3 Nucleated RBCs % Platelet Estimate Decreased (Adequate) % Immature Plt Fraction 5.8 (0.9-11.2) % Basophilic Stippling Anisocytosis Macrocytosis (NORMAL) Schistocytes None seen Sodium (137-145) mmol/L Potassium (3.4-5.0) mmol/L Chloride (98-107) mmol/L Carbon Dioxide (22-30) mmol/L Anion Gap (4-12) mmol/L BUN (9-20) mg/dL Creatinine (0.7-1.3) mg/dL Estim Creat Clear Calc ml/min Estimated GFR (59 - ) Glucose (65-110) mg/dL Lactic Acid 3.3 H (0.7-2.0) mmol/L Calcium (8.4-10.2) mg/dL Total Bilirubin (0.2-1.3) mg/dL AST (17-59) U/L ALT (6-50) U/L Alkaline Phosphatase (38-126) U/L Total Protein (6.3-8.2) g/dL Albumin (3.5-5.1) g/dL Lipase (23-300) U/L Urine Color (Yellow) Urine Appearance (Clear) Urine pH (5.0-9.0) Ur Specific Aurora (1.001-1.035) Urine Protein (Negative) mg/dL Urine Glucose (UA) (Negative) mg/dL Urine Ketones (Negative) mg/dL Ur Blood (Man) (Negative) Urine Nitrate (Negative) Urine Bilirubin (Negative) Urine Urobilinogen (<2.0) mg/dL Leukocyte Esterase Rfl (Negative) ORTIZ/UL Blood Type O Positive Antibody Screen Negative Crossmatch See Detail Imaging Data Radiologist's impression: ITS Impressions Abdomen/Pelvis CT 08/28/25 17:31 IMPRESSION: 1. No acute intra-abdominal process. Incidental findings above Critical Care Time Critical Care Time Critical Care Time: Yes Total Critical Care Time: 35 Discharge Plan Discharge Clinical Impression: Sepsis, Anemia, Acute upper GI bleed Patient Disposition: Still a Patient Condition: Stable Patient Language: Portuguese Prescriptions: No Action Repatha SureClick 140 mg/mL pen injector 140 mg SUB-Q [id number] Rx Instructions: SUBQ EVERY TWO WEEKS. isosorbide mononitrate 30 mg tablet extended release 24 hr 30 mg PO DAILY omega-3 fatty acids 1,000 mg capsule 1,000 mg PO DAILY famotidine [Pepcid] 40 mg tablet 40 mg PO DAILY montelukast 10 mg tablet 10 mg PO QHS Qty: 30 3RF orphenadrine citrate 100 mg tablet extended release 100 mg PO Q12H PRN (Reason: muscle pain) 10 Days Qty: 20 0RF aspirin [Adult Low Dose Aspirin] 81 mg Tablet,Delayed Release (Dr/Ec) 81 mg PO DAILY lidocaine 4 % adhesive patch,medicated 1 patch topical DAILY PRN (Reason: pain) Qty: 10 0RF acetaminophen 500 mg capsule 1,000 mg PO Q6H PRN (Reason: pain) Qty: 30 0RF Brilinta 90 mg tablet 90 mg PO Q12H Rx Instructions: take 1 tablet by oral route 2 times every day metoprolol succinate 50 mg tablet extended release 24 hr 50 mg PO DAILY ergocalciferol (vitamin D2) 1,250 mcg (50,000 unit) capsule 1,250 mcg PO WEEKLY Qty: 14 3RF Creon 6,000-19,000 -30,000 unit capsule,delayed release(DR/EC) 1 cap PO TID Qty: 270 0RF niacin 1,000 mg tablet extended release 24 hr 1,000 mg PO .at bedtime Qty: 90 1RF methocarbamol 750 mg tablet 750 mg PO HS Qty: 30 0RF nitroglycerin 0.4 mg tablet, sublingual 0.4 mg sublingual Q5M PRN (Reason: chest pain) Qty: 100 0RF Rx Instructions: do not exceed 3 doses per episode hydrocodone-acetaminophen 7.5-325 mg tablet 1 tablet PO Q6H PRN (Reason: pain) Qty: 120 0RF Follow-up/Referrals: Sri Fajardo MD [Primary Care Provider, Family Practice]
[2025-08-28 15:44] LABS: Band Neutrophils Percent 4 % (0-6); Neutrophils Absolute Manual 33.76 K/mm3 (1.3-6.7); Neutrophils Percent Manual 76 % (46-73); Total Cells Counted 100
[2025-08-28 15:45] LABS: Anisocytosis 1+; Macrocytosis 1+ (NORMAL); Schistocytes None Seen
[2025-08-28 15:51] LABS: Lymphocytes Absolute Manual 4.22 K/mm3 (1.1-4.5); Lymphocytes Percent Manual 10 % (18-44); Monocytes Absolute Manual 1.68 K/mm3 (0.1-0.90); Monocytes Percent Manual 4 % (3-9)
[2025-08-28 15:52] LABS: Basophils Absolute Manual 0.42 K/mm3 (0.0-0.1); Basophils Percent Manual 1 % (0-1); Metamyelocytes Percent 3 %; Promyelocytes Percent 2 %
[2025-08-28 15:54] LABS: Basophilic Stippling Occasional
[2025-08-28 16:40] LABS: Alanine Aminotransferase 103 U/L (6-50); Albumin Level 2.5 g/dL (3.5-5.1); Alkaline Phosphatase 71 U/L (38-126); Anion Gap 4 mmol/L (4-12); Aspartate Amino Transferase 63 U/L (17-59); Bilirubin,Total 0.4 mg/dL (0.2-1.3); Blood Urea Nitrogen 46 mg/dL (9-20); Calcium 9.1 mg/dL (8.4-10.2); Carbon Dioxide 24 mmol/L (22-30); Chloride 106 mmol/L (98-107); Estimated CRCL calculation 83 ml/min; Estimated Glomerular Filt Rate > 60; Glucose 139 mg/dL (65-110); Lipase 28 U/L (23-300); Potassium 5.5 mmol/L (3.4-5.0); Sodium 134 mmol/L (137-145); Total Protein 5.3 g/dL (6.3-8.2)
[2025-08-28 16:42] LABS: Add Urine Microscopic? NO; Appearance Urine Clear (Clear); Glucose Urine UA Negative (Negative); Leukocyte Esterase Ur Negative LEU/UL (Negative); Nitrate Urine Negative (Negative); Specific Grav Ur 1.017 (1.001-1.035)
[2025-08-28] MEDS: PIPERACILLIN/TAZOBACTAM SOD 3.375 GM in SODIUM CHLORIDE 0.9% IV 50 ML 100 ML IVPB ×2 (17:53→23:38)
[2025-08-28] MEDS: SODIUM CHLORIDE 0.9% IV 1,000 ML 125 ML IV CONT (18:44)
[2025-08-28 18:55] LABS: Immature Granulocyte Percent A 8.2 % (0-0.5); Immature Platelet Fraction Pct 5.8 % (0.9-11.2); Lymphocytes Absolute Auto 2.27 K/mm3 (0.9-3.2); Mean Corpuscular HGB Conc 32.5 g/dl (32-36); Mean Corpuscular Hemoglobin 32.4 pg (26-34); Mean Corpuscular Volume 99.5 fl (80-100); Nucleated Red Blood Cells Absolute Auto 0.180 K/mm3 (0.0-0.012); Nucleated Red Blood Cells Perc 0.7 % (0.0-0.2); Platelet Count Result 95 k/mm3 (150-375); Red Blood Count 2.07 M/mm3 (4.6-6.20); White Blood Count 25.8 K/mm3 (4.5-10.0)
[2025-08-28 19:13] LABS: Hemoglobin 6.7 g/dL (14.0-18.0)
[2025-08-28 19:14] LABS: Hematocrit 20.6 % (42.0-52.0)
[2025-08-28 19:15] LABS: Schistocytes None Seen
--- NOTE | 2025-08-28 19:16 | P.HP_ITS ---
H&P: HPI History of Present Illness Date/Time: 08/28/25 19:16 Chief Complaint: Nausea and vomiting without diarrhea Narrative: This is a 64-year-old male patient who has an extensive cardiac history with end-stage liver disease related to non alcoholic fatty liver. The patient recently was complaining of some lower back pain and was given prednisone. The patient stated he has not been taking the prednisone with food. The patient stated that he vomited last night and today after eating some [place] food. He denies seeing any blood in his vomit or stool. He did notice that his stools were darker but he thought it was because he had been eating varies. He denies any sick contacts. Abdominal/pelvis CT was read as no acute intra-abdominal process. Incidental findings. He has cirrhotic changes of the liver. Portal vein patent. No intrahepatic biliary duct dilatation. His white count initially was 42.2 and is now 25.8. Initial H&H was 9.6 and 29.6. However after 3 L of fluid his H&H dropped to 6.7 and 20.6. On 08/10/2025 he had a normal H&H. Platelets were initially 149 and now 95. His baseline is around 149. The patient has been on Brilinta and aspirin with a recent prescription of prednisone. His sodium levels 134 with potassium 5.5. His lactic was 5.2 and came down to 3.3 with 3 L of fluid. The patient is very pale and weak. His heart rate is in the low 100s. Blood pressure 107/64 this time. Pulse ox is 95%. GI has been consulted The senior business objects developer has been notified and the patient will be admitted to ICU observation status on the date of service of 08/28/2025. Review of Systems Constitutional: Constitutional: Reports as per HPI and Reports no additional constitutional complaints Eyes: Eyes: Reports as per HPI and Reports no additional eye complaints ENT: Reports no additional ear, nose, mouth, and throat complaints and Reports Normal hearing present Cardiovascular: Cardiovascular: Reports no additional cardiovascular c omplaints Respiratory: Respiratory: Reports as per HPI and Reports no additional respiratory complaints Gastrointestinal: Gastrointestinal: Reports as per HPI and Reports no additional gastrointestinal complaints Musculoskeletal: Musculoskeletal: Reports no additional musculoskeletal complaints Integumentary/Breasts: Skin/Breast: Reports system reviewed and no additional complaints, except as docu Neurologic: Reports no additional neurologic complaints and Reports Normal hearing present Psychiatric: Psychiatric: Reports no additional psychiatric complaints and Reports as per HPI Hematologic/Lymphatic: Hematologic/Lymphatic: Reports no additional hematologic/lymphatic complaints Allergic/Immunologic: Allergic/Immunologic: Reports no additional allergic/immunologic complaints [facility] Past Medical History Medical History Prediabetes Low serum iron Chronic, continuous use of opioids Cirrhosis Previous liver biopsy confirming diagnosis. Apparently cryptogenic in etiology. GERD (gastroesophageal reflux disease) History of rectal polyps TIA (transient ischemic attack) Coronary artery disease Patient with history of premature coronary artery disease in his 40s. He is status post multivessel CABG. On several occasions he was taken to cardiac catheterization lab per Dr. Champion, and due to his complex disease he has at times required intervention at [facility]. Chronic pancreatitis Hyperlipidemia Hypertension Surgical History Surgical History History of repair of aneurysm of abdominal aorta using endovascular stent graft x3 Status post appendectomy, follow-up exam Status post coronary artery bypass graft 6 Hx of cardiac catheterization Last cardiac catheterization at this facility was May 31, [address] Champion. At that time it was noted that he had a patent stent to the circumflex. SVG to the OM and diagonal were apparently occluded. [place]arez to LAD was patent. There was severe stenosis to a very large caliber vein graft to the RCA with 95 to 99% stenosis. This was deemed to be too high risk and he was transferred to [facility], where a total of 6 stents were placed. (patient stated that he has 9 stents now.) History of tonsillectomy History of cholecystectomy History of heart artery stent Six vessel Family History Family History Mother Family history of cardiovascular disease Diabetes mellitus Myocardial infarct Sibling Diabetes mellitus Pancreatitis Social History Social History Social History: The patient lives in [place] with his . He designates his as his surrogate decision maker and he wishes to be a full code. 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 His primary care provider is Dr. Loreta Padilla. He smoked 1 to 2 cigars a day but quit in 2008 after his bypass. No alcohol or drug abuse. Code status: Full code Smoking status: Former smoker Tobacco type: cigars Smoking end date: 06/24/09 Alcohol intake: never Substance use: never Substance use type: does not use Lack of Transportation: No Lack of Food: Never True Current Housing: I Have Housing Concerned About Future Housing: No Difficulty Paying Gas/Electric Bills: No Difficulty Paying for Meds: No Currently Unemployed: No Education: High School Diploma/GED Difficulty w/ Childcare or Family Care: No Living arrangements: with family Additional living arrangements comments: Lives with . Occupation/Education: retired Gender identity (if verbalized by the patient): Male Sexual Orientation (if Verbalized by the Patient): Straight or Heterosexual Spiritual care concerns: No Agree to blood products: Yes Meds Home Medications and Allergies Home Medications ?Medication ?Instructions ?Recorded ?Confirmed ?Type metoprolol succinate 50 mg 50 mg PO DAILY 11/29/1904/17 History tablet,extended release 24 hr ticagrelor 90 mg tablet (Brilinta) 90 mg PO Q12H 11/2908/28/25 History evolocumab 140 mg/mL subcutaneous 140 mg subcut Q2WEEK S 12/31/19 08/28/25 History pen injector (Repatha SureClick) isosorbide mononitrate 30 mg 30 mg PO DAILY 12/31/19 1 History tablet,extended release 24 hr omega-3 fatty acids 1,000 mg 1,000 mg PO DAILY 0 08/28/25 History capsule aspirin 81 mg tablet,delayed 81 mg PO DAILY 01/03/20 1 History release (Adult Low Dose Aspirin) Held on 09/01/25. Instructions: patient to hold aspirin for 3 weeks ergocalciferol (vitamin D2) 1,250 1,250 mcg PO WEEKLY #14 caps 05/16/21 08/28/25 Rx mcg (50,000 unit) capsule famotidine 40 mg tablet (Pepcid) 40 mg PO DAILY 08/28/25 History montelukast 10 mg tablet 10 mg PO QHS #30 tabs 08/28/25 Rx acetaminophen 500 mg capsule 1,000 mg (2 x 500 mg) PO Q6H PRN 05/23/25 08/28/25 Rx pain #30 caps niacin 1,000 mg tablet,extended 1,000 mg PO .at bedtim e #90 tabs 06/22/25 08/28/25 Rx release 24 hr hydrocodone 7.5 mg-acetaminophen 1 tablet PO Q6H PRN p ain #120 tabs 08/23/25 08/28/25 Rx 325 mg tablet nitroglycerin 0.4 mg sublingual 0.4 mg sublingual Q5M PRN chest 08/23/25 08/28/25 Rx tablet pain #100 tabs methocarbamol 750 mg tablet 750 mg PO HS #30 tabs 07/1808/31/25 Rx pantoprazole 40 mg tablet,delayed 40 mg PO Q12HR #60 t abs 09/01/25 Rx release Allergies Allergy/AdvReac Type Severity Reaction Status Date / Time [id number] Reductase Allergy Unknown liver Verified 08/29/25 14:03 Inhibitor (Ktzlqfo-Inn-Iwx issues Reductase Inhibitor) Vital Signs Vital Signs - 24 hr 08/28/25 14:04 08/28/25 14:35 08/28/25 14:37 Temperature 97.6 F Pulse Rate 132 H 120 H 127 H Respiratory Rate 20 16 Blood Pressure 85/52 L 91/74 L 92/75 L Pulse Oximetry 98 97 Oxygen Delivery Room Air 08/28/25 14:40 08/28/25 14:45 08/28/25 15:00 Temperature Pulse Rate 123 H 118 H 127 H Respiratory Rate 19 12 22 H Blood Pressure 96/70 L 98/62 L 92/77 L Pulse Oximetry 97 97 97 Oxygen Delivery 08/28/25 15:00 08/28/25 15:15 08/28/25 15:32 Temperature Pulse Rate 127 H 126 H 101 H Respiratory Rate 22 H 21 H 19 Blood Pressure 92/77 L 97/74 L Pulse Oximetry 97 97 95 Oxygen Delivery 08/28/25 15:55 08/28/25 16:12 08/28/25 16:20 Temperature Pulse Rate 98 100 97 Respiratory Rate 21 H 14 16 Blood Pressure Pulse Oximetry 99 100 99 Oxygen Delivery 08/28/25 16:34 08/28/25 16:54 08/28/25 17:00 Temperature Pulse Rate 97 105 H 107 H Respiratory Rate 13 20 17 Blood Pressure 89/67 L Pulse Oximetry 99 97 96 Oxygen Delivery 08/28/25 17:01 08/28/25 17:40 08/28/25 17:53 Temperature Pulse Rate 106 H 106 H Respiratory Rate 18 18 Blood Pressure 93/70 L 109/71 Pulse Oximetry 97 98 Oxygen Delivery 08/28/25 18:01 08/28/25 18:26 08/28/25 18:35 Temperature Pulse Rate 101 H 105 H 105 H Respiratory Rate 12 16 20 Blood Pressure 96/69 L 90/63 L 102/71 Pulse Oximetry 98 98 100 Oxygen Delivery 08/28/25 19:00 Temperature Pulse Rate 105 H Respiratory Rate 16 Blood Pressure 91/65 L Pulse Oximetry 99 Oxygen Delivery Exam Const: General: cooperative, comfortable, no acute distress, awake, average body habitus and well nourished Nutritional Appearance: average body habitus and well nourished Orientation/consciousness: oriented to person, oriented to place, oriented to time and patient oriented x3 Limitations: no limitations Other: He is thin and pale. He appears ill HENMT: Head: normal to inspection, No palpable skull fracture present, normocephalic, atraumatic and abrasion Ears: hearing grossly normal bilaterally and external ears normal Eyes: General: appearance normal, both eyes and all related structures Alignment and Position: alignment normal Periorbital: periorbital findings normal Eyelids: eyelids normal Neck: Neck: normal visual inspection, full ROM and no lymphadenopathy Chest: Chest palpation & inspection: normal inspection of the chest Resp: Effort & Inspection: normal respiratory effort Auscultation: clear to auscultation bilaterally Percussion: percussion normal Cardio: Palpation: normal PMI Rate: regular rate Rhythm: regular rhythm GI: Inspection: normal to inspection Auscultation: normal bowel sounds Rectal Exam: deferred Other: Nontender abdomen with light and deep palpation. He was guaiac-positive in the emergency room Skin: General skin exam: normal color Lesions: no lesions Rashes: no rashes Trauma: no lacerations or abrasions Wounds: no wounds Hair: general thinning Neuro: General: oriented to person, oriented to place, oriented to time and patient oriented x3 Cranial nerves: Yes Equal, round and reactive pupils present and Yes Normal hearing present Cognition (Neuro): normal cognition Speech: normal speech Extrem: General: normal to inspection Right upper extremity: normal to inspection and shoulder/upper arm Left upper extremity: normal to inspection and shoulder/upper arm Right lower extremity: normal to inspection Left lower extremity: normal to inspection Psych: Appearance: grossly normal Mental Status: mental status grossly normal Speech and movement: Normal speech and movement present Affect: normal affect Attitude: cooperative Thought process: Normal thought process present Thought content: Yes Normal thought content present Insight: Good insight present (Psych) Judgement: Good judgement present (Psych) H&P: Results Labs Labs: Short CBC 08/28/25 08/28/25 Range/Units 15:12 18:45 WBC 42.2 H 25.8 H (4.5-10.0) K/mm3 Hgb 9.6 L D 6.7 L* (14.0-18.0) g/dL Hct 29.6 L 20.6 L* (42.0-52.0) % Plt Count 149 L 95 L (150-375) k/mm3 BMP 08/28/25 16:10 Sodium 134 L Potassium 5.5 H Chloride 106 Carbon Dioxide 24 BUN 46 H D Creatinine 0.72 Glucose 139 H Calcium 9.1 Liver Function 08/28/25 Range/Units 16:10 Total Bilirubin 0.4 (0.2-1.3) mg/dL AST 63 H (17-59) U/L ALT 103 H (6-50) U/L Alkaline Phosphatase 71 (38-126) U/L Albumin 2.5 L (3.5-5.1) g/dL Urine 08/28/25 Range/Units 16:28 Urine Color Yellow (Yellow) Urine Appearance Clear (Clear) Urine pH 6.0 (5.0-9.0) Ur Specific [place] 1.017 (1.001-1.035) Urine Protein Negative (Negative) mg/dL Urine Glucose (UA) Negative (Negative) mg/dL ECG Interpretation: SINUS TACHYCARDIA RIGHT BUNDLE BRANCH BLOCK ABNORMAL ECG Compared to ECG 05/23/2025 01:28:00 HEART RATE HAS INCREASED Electronically Signed On 08-28-2025 19:26:01 CDT by Familia Zuleta D.O. Imaging CT scan - abdomen: Radiologist's impression: Impressions Abdomen/Pelvis CT 08/28/25 17:31 IMPRESSION: 1. No acute intra-abdominal process. Incidental findings above Assessment and Plan Assessment and plan (1) Acute upper GI bleed: Code(s): K92.2 - Gastrointestinal hemorrhage, unspecified Status: Acute Assessment and Plan: -GI has been consulted. -I spoke with the senior business objects developer who is agreeable to admit the patient to ICU. Customer Supply Coordinator consult has been placed. -I did discuss his code status the patient stated he is a full code. -2 units of packed red blood cell has been ordered. -in the event that there is a delay in obtaining blood for the patient we will give him 2 units of platelets. -the patient has been on Brilinta and aspirin and recently was prescribed prednisone. Patient stated he has not been taking the prednisone with meals. -the patient stated he noted stools that were darker than normal but he suspected this was from eating blueberries. However he was guaiac-positive in the emergency room. -the patient is tachy with heart rate in the low 1 100s. Blood pressure soft 107/68. -I did consult Cardiology as the patient has an extensive cardiac history and is on Brilinta and aspirin. The patient stated that the last time that he helps his Brilinta and aspirin his stents occluded. I explained to him that I could not give him these medications at this time as his blood counts were dangerously low. -continue with Protonix drip. -keep the patient NPO at this time -patient stated that he did vomit but did not notice any blood in his emesis. He denies any noticeable bleeding from his rectum but did notice that his stools were darker. -Abdomen/Pelvis CT 08/28/25 17:31 IMPRESSION: 1. No acute intra-abdominal process. Incidental findings ab (2) Coronary artery disease: Qualifiers: Associated angina: angina presence unspecified Coronary Disease- Associated Artery/Lesion type: unspecified vessel or lesion type [place] vs. transplanted heart: [place] heart Qualified Code(s): I25.10 - Atherosclerotic heart disease of [place] coronary artery without angina pectoris Code(s): I25.10 - Atherosclerotic heart disease of [place] coronary artery without angina pectoris Status: Acute Assessment and Plan: -according to the patient he has had 9 cardiac stents. However reviewing the records suggest that he only had 6. The patient also stated that he has had a 6 vessel CABG. -the patient has been on aspirin and Brilinta which is currently on hold. -I did consult Cardiology as the patient follows with Dr. Romero and there was some concerns about the stents clotting off if he is off Brilinta and aspirin for appear to time. -the patient is on isosorbide however his blood pressure soft at this time and we are unable to give this to him. -she is also on metoprolol however his blood pressure is low at this time so that with placed on hold. (3) Cirrhosis, non-alcoholic: Code(s): K74.60 - Unspecified cirrhosis of liver Status: Acute Assessment and Plan: -MELD score 22 with a mortality rate of 19.6 -CT of the abdomen shows cirrhotic changes of the liver. Portal vein patent. No intrahepatic biliary duct dilatation. -non alcoholic cirrhosis of liver. -patient's AST 63, ALT 103 and alkaline phosphatase 71. Patient's AST is at baseline. (4) Lumbar back pain: Code(s): M54.50 - Low back pain, unspecified Status: Acute Assessment and Plan: -continue with pain medication if blood pressure allows. -holding prednisone. (5) Hyperlipidemia: Code(s): E78.5 - Hyperlipidemia, unspecified Status: Acute Assessment and Plan: -omega-3 daily. He is NPO at this time. -check lipid profile (6) Leukocytosis: Code(s): D72.829 - Elevated white blood cell count, unspecified Status: Acute Assessment and Plan: -patient's lactic level went from 5.2-3.3 after fluids. -blood cultures are pending. -this could be stress-induced or steroid induced. -daily CBCs. -the patient was started on Zosyn pending cultures. -lactic was elevated but responsive to fluids. -continue to check daily lactic acid levels -ordered chest x-ray. -CT of the abdomen shows nothing acute. -UA was negative. -continue with IV hydration (7) Chronic pancreatitis: Code(s): K86.1 - Other chronic pancreatitis Status: Acute Assessment and Plan: -monitor lipase levels. -the patient has been on Pancrease which is currently on hold due to his NPO status. Quality VTE Prophylaxis VTE prophylaxis: mechanical ordered
[2025-08-28] MEDS: PANTOPRAZOLE SODIUM IV 40 MG VIAL 80 MG IV PUSH (19:32)
[2025-08-28] MEDS: PANTOPRAZOLE SODIUM IV 80 MG in SODIUM CHLORIDE 0.9% IV 500 ML 50 MG IV CONT (19:34)
[2025-08-28] MEDS: SODIUM CHLORIDE 0.9% IV 250 ML 30 ML IV CONT (19:48)
[2025-08-28] MEDS: TUBING, BLOOD PLUM PUMP TUBING 1 EACH XX (20:04)
--- NOTE | 2025-08-28 20:43 | PC.NURSE ---
This patient, Kashif Rhodes, was admitted to Intensive Care Unit-2. Patient/family oriented to hospital policies and general routines including ID bracelet, bed and alarms, visiting hours, pain management, procedures, bathroom and other care routines, personal items, smoking policy, room service/diet, and visiting hours. Information on how to activate the Rapid Response Team has been discussed. Patient/Family are encouraged to report perceived risks to care and to ask questions if they do not understand what they are told or what they should do.
[2025-08-28 21:16] LABS: Hemoglobin A1C 6.4 % (<5.7)
[2025-08-28 22:21] LABS: Iron 65 ug/dL (49-181)
[2025-08-28 22:31] LABS: Percent Iron Saturation 25 % (20-50)
[2025-08-28 22:59] LABS: Ferritin 36.00 ng/mL (11.1-264)
[2025-08-28 23:30] LABS: Vitamin B12 304.0 pg/mL (239-931)
[2025-08-29] VITALS (34 sets, daily range): BP systolic 83–116; BP diastolic 45–80; PULSE 83–133; RESP 10–24; TEMP 36.7–37.8; O2SAT 95–100
--- NOTE | 2025-08-29 | ECHO_ITS ---
Patient Info Name: Kashif Rhodes Age: 64 years : 1960 Gender: Male Ht: 28 in Wt: 340 lbs BSA: 1.98 m2 HR: 102 bpm BP: 88 / 73 mmHg Heart Rhythm: Sinus Rhythm Technical Quality: Fair Exam Date: 08/29/2025 1:14 PM Patient Status: I Admit Date: 08/29/2025 Exam Type: CA echo doppler color flow Complete two-dimensional, color flow and Doppler transthoracic echocardiogram is performed. Staff Referring Physician: Genevieve Metcalf DELIVERY PERSON Civil Preparedness Training Officer: Belén Caruso Attending Provider: Emanuel Chou Summary 1. Complete two-dimensional, color flow and Doppler transthoracic echocardiogram is performed. 2. Left ventricular systolic function is normal, estimated at 65-70. 3. The left ventricular diastolic function is grade I diastolic dysfunction. 4. There is mild tricuspid valve regurgitation. 5. No pulmonary hypertension, estimated pulmonary arterial systolic pressure is 28 mmHg. 6. The aortic valve is possibly bicuspid. 7. There is mild aortic valve calcification. 8. There is no aortic valve stenosis. 9. There is no aortic valve regurgitation. 10. Technically difficult study. Left Ventricle Left ventricular chamber dimension is normal. Left ventricular systolic function is normal, estimated at 65-70. There is no increased left ventricular wall thickness. Left ventricular septal wall motion is normal. The left ventricular diastolic function is grade I diastolic dysfunction. Right Ventricle Right ventricular chamber dimension is normal. Right ventricular systolic function is normal. Left Atria Left atrial chamber dimension is normal. Right Atria Right atrial chamber dimension is normal. Aortic Valve The aortic valve is possibly bicuspid. There is no aortic valve sclerosis. There is no aortic valve stenosis. There is no aortic valve regurgitation. There is mild aortic valve calcification. Pulmonic Valve The pulmonic valve is normal. There is no pulmonic valve stenosis. There is no pulmonic regurgitation. Mitral Valve The mitral valve has normal leaflets. There is no mitral valve stenosis. There is no mitral valve regurgitation. Tricuspid Valve The tricuspid valve leaflets are normal. There is no significant tricuspid valve stenosis. There is mild tricuspid valve regurgitation. No pulmonary hypertension, estimated pulmonary arterial systolic pressure is 28 mmHg. Pericardium/Pleural The pericardium appears normal. There is no pericardial effusion. Inferior Vena Cava Normal inferior vena cava with >50% collapse upon inspiration consistent with normal right atrial pressure, 5 mmHg. Aorta The aortic root size at the sinus of Valsalva is normal. The prox ascending aorta size is normal. Left Ventricular Outflow Tract Name Value Normal LVOT 2D LVOT Diameter 2.0 cm LVOT Doppler LVOT Peak Velocity 103 cm/s LVOT Peak Gradient 4 mmHg LVOT Mean Gradient 2 mmHg LVOT VTI 16 cm LVOT VTI/AV VTI Ratio 0.7 LVOT Stroke Volume 52 ml LVOT CO 4.6 l/min LVOT CI 2.3 l/min/m2 Pulmonic Valve Name Value Normal RVOT Doppler RVOT Peak Velocity 107 cm/s RVOT Peak Gradient 5 mmHg PV Doppler PV Peak Velocity 121 cm/s PV Peak Gradient 6 mmHg Mitral Valve Name Value Normal MV Diastolic Function MV E Peak Velocity 44 cm/s MV A Peak Velocity 69 cm/s MV E/A 0.6 MV Decel Time (PW) 163 ms MV Annular TDI MV E/e' (Septal) 6.8 MV E/e' (Lateral) 3.7 MV E/e' (Average) 5.3 Tricuspid Valve Name Value Normal TV Regurgitation Doppler TR Peak Velocity 239 cm/s TR Peak Gradient 23 mmHg Estimated PAP/RSVP RA Pressure 5 mmHg <=5 PA Systolic Pressure 28 mmHg <36 RV Systolic Pressure 28 mmHg <36 TV Annular TDI TV Lateral Peggy s' Velocity 6.0 cm/s >=9.5 Aorta Name Value Normal Ascending Aorta Ao Root Diameter (MM) 3.7 cm Ao Root Diam Index (MM) 1.9 cm/m2 Aortic Valve Name Value Normal AV Doppler AV Peak Velocity 170 cm/s AV Peak Gradient 6 mmHg AV Mean Gradient 3 mmHg AV VTI 24 cm AV Area (Cont Eq VTI) 2.2 cm2 >=3.0 AV Area (Cont Eq Johnny) 2.0 cm2 AV DI (Johnny) 0.61 AV Regurgitation 2D LVOT Area 3.3 cm2 Ventricles Name Value Normal LV Dimensions 2D/MM IVS Diastolic Thickness (2D) 1.0 cm 0.6-1.0 LVID Diastole (2D) 5.7 cm 4.2-5.8 LVIW Diastolic Thickness (2D) 1.0 cm 0.6-1.0 LVID Systole (2D) 3.8 cm 2.5-4.0 LVOT Diameter 2.0 cm LV Mass (2D Cubed) 219.73 g 88.00-224.00 LV Mass Index (2D Cubed) 111 g/m2 49-115 Relative Wall Thickness (2D) 0.35 <=0.42 LV Fractional Shortening/Ejection Fraction 2D/MM LV Fractional Shortening (2D) 33 % 25-43 LV EF (2D Teichholz) 60 % LV Diastolic Volume (4C MOD) 51 ml LV EF (4C MOD) 61 % LV Diastolic Volume (2C MOD) 39 ml LV EF (2C MOD) 69 % LV Diastolic Volume (BP MOD) 44 ml 62-150 LV Diastolic Volume Index (BP MOD) 22 ml/m2 34-74 LV Systolic Volume (BP MOD) 15 ml 21-61 LV Systolic Volume Index (BP MOD) 8 ml/m2 11-31 LV EF (BP MOD) 66 % 52-72 LV Diastolic Length (4C) 7.7 cm LV Systolic Length (4C) 6.8 cm LV Stroke Volume (4C MOD) 31 ml Atria Name Value Normal LA Dimensions LA Volume (4C A-L) 41 ml LA Volume (BP A-L) 57 ml RA Dimensions RA Systolic [place] Length (4C) 4.4 cm 2.1-2.7 RA Area (4C) 12.4 cm2 <=18.0 Report Signatures
[2025-08-29 01:36] LABS: IFOB Positive Control Positive; Immunochemical Fecal Occult Bl Positive (N)
[2025-08-29 02:07] LABS: Toxigenic C. Diff NEGATIVE (NEGATIVE)
[2025-08-29 02:22] LABS: MRSA (PCR) NOT DETECTED (NOT DETECTE)
[2025-08-29] MEDS: MORPHINE SULFATE (*CRX) 4 MG/ML INJ 2 MG IV PUSH ×2 (04:34→11:54)
[2025-08-29] MEDS: PANTOPRAZOLE SODIUM IV 80 MG in SODIUM CHLORIDE 0.9% IV 500 ML 50 MG IV CONT ×2 (05:13→16:00)
[2025-08-29 05:50] LABS: Hematocrit 25.3 % (42.0-52.0); Hemoglobin 8.4 g/dL (14.0-18.0); Immature Granulocyte Percent A 5.8 % (0-0.5); Immature Platelet Fraction Pct 5.6 % (0.9-11.2); Lymphocytes Absolute Auto 3.72 K/mm3 (0.9-3.2); Mean Corpuscular HGB Conc 33.2 g/dl (32-36); Mean Corpuscular Hemoglobin 31.9 pg (26-34); Mean Corpuscular Volume 96.2 fl (80-100); Nucleated Red Blood Cells Absolute Auto 0.140 K/mm3 (0.0-0.012); Nucleated Red Blood Cells Perc 0.6 % (0.0-0.2); Platelet Count Result 83 k/mm3 (150-375); Red Blood Count 2.63 M/mm3 (4.6-6.20); White Blood Count 24.9 K/mm3 (4.5-10.0)
[2025-08-29 06:08] LABS: Lipase 44 U/L (23-300)
[2025-08-29 06:09] LABS: Cholesterol 110 mg/dL (0-200); HDL Direct 28 mg/dL; Triglycerides 371 mg/dL (<150)
[2025-08-29 06:12] LABS: Anion Gap 0 mmol/L (4-12); Blood Urea Nitrogen 27 mg/dL (9-20); Calcium 7.9 mg/dL (8.4-10.2); Carbon Dioxide 21 mmol/L (22-30); Chloride 112 mmol/L (98-107); Estimated CRCL calculation 108 ml/min; Estimated Glomerular Filt Rate > 60; Glucose 134 mg/dL (65-110); Potassium 4.5 mmol/L (3.4-5.0); Sodium 133 mmol/L (137-145)
[2025-08-29] MEDS: PIPERACILLIN/TAZOBACTAM SOD 3.375 GM in SODIUM CHLORIDE 0.9% IV 50 ML 100 ML IVPB ×4 (07:12→23:10)
[2025-08-29 07:26] LABS: Band Neutrophils Percent 5 % (0-6); Lymphocytes Absolute Manual 3.73 K/mm3 (1.1-4.5); Lymphocytes Percent Manual 15.0 % (18-44); Metamyelocytes Percent 1 %; Monocytes Absolute Manual 2.49 K/mm3 (0.1-0.90); Monocytes Percent Manual 10 % (3-9); Neutrophils Absolute Manual 18.42 K/mm3 (1.3-6.7); Neutrophils Percent Manual 69 % (46-73); Total Cells Counted 100
[2025-08-29 07:27] LABS: Anisocytosis Occasional; Schistocytes None Seen
[2025-08-29] MEDS: SODIUM CHLORIDE 0.45% 1,000 ML 75 ML IV CONT (08:34)
--- NOTE | 2025-08-29 09:49 | PM.CNCAR ---
Assessment and Plan Assessment and plan (1) Coronary artery disease: Qualifiers: Coronary Disease-Associated Artery/Lesion type: unspecified vessel or lesion type [place] vs. transplanted heart: [place] heart Associated angina: angina presence unspecified Qualified Code(s): I25.10 - Atherosclerotic heart disease of [place] coronary artery without angina pectoris Code(s): I25.10 - Atherosclerotic heart disease of [place] coronary artery without angina pectoris Status: Acute Assessment and Plan: Complex coronary artery disease with history of CABG and subsequent PCI to the LCX with laser angioplasty and stenting, PCI to the RCA. Because of this complex history he has remained on DAPT. In the setting of acute GI bleed his ASA and Brilinta are appropriately on hold. Will await further GI evaluation to determine safety and timing of resuming any anti-platelet therapy (2) Acute upper GI bleed: Code(s): K92.2 - Gastrointestinal hemorrhage, unspecified Status: Acute Assessment and Plan: GI following - plan for endoscopy later today. History of Present Illness History of Present Illness Consult date/time: 08/29/25 09:49 Requesting physician: Genevieve Metcalf APRN Consult reason: Other Reason For Visit: sepsis unknown source, vomiting, anemia Narrative: Kashif Rhodes is a 64 year old male with coronary artery disease with previous surgical revascularization and multiple PCI's, the most recent of which was in 2017. He also has an abdominal aortic aneurysm which is followed by Dr. Lu. He comes to the hospital with a chief complaint of vomiting. Cardiology is consulted for advice regarding his dual anti platelet therapy in the setting of GI bleed requiring transfusion. He does have a history of NSTEMI in the setting of anti-platelet disruption for a liver biopsy. His last PCI was in 2019. However, because of his complex and diffuse coronary artery disease he has been committed to DAPT indefinitely. At the time of my visit he states he is feeling much better than he did yesterday. He has received 2 units of PRBC's and is scheduled for endoscopy later today. He is not having any chest pain, shortness of breath, or palpitations. Review of Systems Review of Systems: All systems reviewed & are unremarkable except as noted in HPI and below PMFSH Past Medical History Medical History Prediabetes Low serum iron Chronic, continuous use of opioids Cirrhosis Previous liver biopsy confirming diagnosis. Apparently cryptogenic in etiology. GERD (gastroesophageal reflux disease) History of rectal polyps TIA (transient ischemic attack) Coronary artery disease Patient with history of premature coronary artery disease in his 40s. He is status post multivessel CABG. On several occasions he was taken to cardiac catheterization lab per Dr. Champion, and due to his complex disease he has at times required intervention at [facility]. Chronic pancreatitis Hyperlipidemia Hypertension Surgical History Surgical History History of repair of aneurysm of abdominal aorta using endovascular stent graft x3 Status post appendectomy, follow-up exam Status post coronary artery bypass graft 6 Hx of cardiac catheterization Last cardiac catheterization at this facility was May 31, [address] Champion. At that time it was noted that he had a patent stent to the circumflex. SVG to the OM and diagonal were apparently occluded. [place] to LAD was patent. There was severe stenosis to a very large caliber vein graft to the RCA with 95 to 99% stenosis. This was deemed to be too high risk and he was transferred to [facility], where a total of 6 stents were placed. (patient stated that he has 9 stents now.) History of tonsillectomy History of cholecystectomy History of heart artery stent Six vessel Family History Family History Mother Family history of cardiovascular disease Diabetes mellitus Myocardial infarct Sibling Diabetes mellitus Pancreatitis Social History Social History Social History: The patient lives in [place] with his . He designates his as his surrogate decision maker and he wishes to be a full code. 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 His primary care provider is Dr. Loreta Padilla. He smoked 1 to 2 cigars a day but quit in 2008 after his bypass. No alcohol or drug abuse. Code status: Full code Smoking status: Former smoker Tobacco type: cigars Smoking end date: 06/24/09 Alcohol intake: never Substance use: never Substance use type: does not use Lack of Transportation: No Lack of Food: Never True Current Housing: I Have Housing Concerned About Future Housing: No Difficulty Paying Gas/Electric Bills: No Difficulty Paying for Meds: No Currently Unemployed: No Education: High School Diploma/GED Difficulty w/ Childcare or Family Care: No Living arrangements: with family Additional living arrangements comments: Lives with . Occupation/Education: retired Gender identity (if verbalized by the patient): Male Sexual Orientation (if Verbalized by the Patient): Straight or Heterosexual Spiritual care concerns: No Agree to blood products: Yes Meds Home Medications and Allergies Home Medications ?Medication ?Instructions ?Recorded ?Confirmed ?Type metoprolol succinate 50 mg 50 mg PO DAILY 11/29/19 08/28/25 History tablet,extended release 24 hr ticagrelor 90 mg tablet (Brilinta) 90 mg PO Q12H 11/29/19 08/28/25 History evolocumab 140 mg/mL subcutaneous 140 mg subcut [id number] 12/31/19 08/28/25 History pen injector (Repatha SureClick) isosorbide mononitrate 30 mg 30 mg PO DAILY 12/31/19 08/28/25 History tablet,extended release 24 hr omega-3 fatty acids 1,000 mg 1,000 mg PO DAILY 12/31/19 08/28/25 History capsule aspirin 81 mg tablet,delayed 81 mg PO DAILY 01/03/20 08/28/25 History release (Adult Low Dose Aspirin) ergocalciferol (vitamin D2) 1,250 1,250 mcg PO WEEKLY #14 caps 05/16/21 08/28/25 Rx mcg (50,000 unit) capsule famotidine 40 mg tablet (Pepcid) 40 mg PO DAILY 11/06/21 08/28/25 History montelukast 10 mg tablet 10 mg PO QHS #30 tabs 11/06/21 08/28/25 Rx acetaminophen 500 mg capsule 1,000 mg (2 x 500 mg) PO Q6H PRN 05/23/25 08/28/25 Rx pain #30 caps niacin 1,000 mg tablet,extended 1,000 mg PO .at bedtime #90 tabs 06/22/25 08/28/25 Rx release 24 hr hydrocodone 7.5 mg-acetaminophen 1 tablet PO Q6H PRN pain #120 tabs 08/23/25 08/28/25 Rx 325 mg tablet nitroglycerin 0.4 mg sublingual 0.4 mg sublingual Q5M PRN chest 08/23/25 08/28/25 Rx tablet pain #100 tabs methocarbamol 750 mg tablet 750 mg PO HS #30 tabs 08/29/25 Rx Allergies Allergy/AdvReac Type Severity Reaction Status Date / Time [id number] Reductase Allergy Unknown liver Verified 08/28/25 21:03 Inhibitor (Kalutus-Asz-Gbc issues Reductase Inhibitor) Vital Signs Vital Signs - 24 hr 08/28/25 14:04 08/28/25 14:35 08/28/25 14:37 Temperature 36.4 C Pulse Rate 132 H 120 H 127 H Respiratory Rate 20 16 Blood Pressure 85/52 L 91/74 L 92/75 L Pulse Oximetry 98 97 Oxygen Delivery Room Air 08/28/25 14:40 08/28/25 14:45 08/28/25 15:00 Temperature Pulse Rate 123 H 118 H 127 H Respiratory Rate 19 12 22 H Blood Pressure 96/70 L 98/62 L 92/77 L Pulse Oximetry 97 97 97 Oxygen Delivery 08/28/25 15:00 08/28/25 15:15 08/28/25 15:32 Temperature Pulse Rate 127 H 126 H 101 H Respiratory Rate 22 H 21 H 19 Blood Pressure 92/77 L 97/74 L Pulse Oximetry 97 97 95 Oxygen Delivery 08/28/25 15:55 08/28/25 16:12 08/28/25 16:20 Temperature Pulse Rate 98 100 97 Respiratory Rate 21 H 14 16 Blood Pressure Pulse Oximetry 99 100 99 Oxygen Delivery 08/28/25 16:34 08/28/25 16:54 08/28/25 17:00 Temperature Pulse Rate 97 105 H 107 H Respiratory Rate 13 20 17 Blood Pressure 89/67 L Pulse Oximetry 99 97 96 Oxygen Delivery 08/28/25 17:01 08/28/25 17:40 08/28/25 17:53 Temperature Pulse Rate 106 H 106 H Respiratory Rate 18 18 Blood Pressure 93/70 L 109/71 Pulse Oximetry 97 98 Oxygen Delivery 08/28/25 18:01 08/28/25 18:26 08/28/25 18:35 Temperature Pulse Rate 101 H 105 H 105 H Respiratory Rate 12 16 20 Blood Pressure 96/69 L 90/63 L 102/71 Pulse Oximetry 98 98 100 Oxygen Delivery 08/28/25 19:00 08/28/25 19:21 08/28/25 19:41 Temperature Pulse Rate 105 H 112 H 112 H Respiratory Rate 16 13 11 L Blood Pressure 91/65 L 108/79 107/64 Pulse Oximetry 99 98 97 Oxygen Delivery 08/28/25 19:47 08/28/25 19:56 08/28/25 20:15 Temperature 37.0 C 36.4 C 37.1 C Pulse Rate 110 H 111 H 116 H Respiratory Rate 14 11 L 12 Blood Pressure 107/64 107/64 107/68 Pulse Oximetry 100 95 97 Oxygen Delivery 08/28/25 21:00 08/28/25 21:00 08/28/25 21:00 Temperature 37.3 C Pulse Rate 131 H 131 H Respiratory Rate 21 H Blood Pressure 99/62 L Pulse Oximetry 100 Oxygen Delivery Room Air 08/28/25 21:15 08/28/25 22:00 08/28/25 22:00 Temperature 37.3 C Pulse Rate 112 H 115 H 118 H Respiratory Rate 21 H 16 Blood Pressure 109/61 108/82 Pulse Oximetry 99 99 Oxygen Delivery 08/28/25 22:15 08/28/25 23:00 08/28/25 23:15 Temperature 37.1 C 37.4 C Pulse Rate 118 H 115 H 113 H Respiratory Rate 16 18 18 Blood Pressure 108/82 91/77 L 102/70 Pulse Oximetry 97 99 100 Oxygen Delivery 08/28/25 23:30 08/29/25 00:00 08/29/25 00:00 Temperature 36.8 C Pulse Rate 115 H 114 H Respiratory Rate 21 H 19 Blood Pressure 104/73 102/73 Pulse Oximetry 98 99 Oxygen Delivery Room Air 08/29/25 00:00 08/29/25 00:52 08/29/25 01:00 Temperature 37.0 C Pulse Rate 111 H 112 H 109 H Respiratory Rate 21 H 20 Blood Pressure 106/69 91/73 L Pulse Oximetry 97 99 Oxygen Delivery 08/29/25 01:07 08/29/25 02:00 08/29/25 02:07 Temperature 36.8 C 36.9 C 36.9 C Pulse Rate 114 H 117 H 115 H Respiratory Rate 20 20 20 Blood Pressure 101/73 112/80 110/71 Pulse Oximetry 98 100 100 Oxygen Delivery 08/29/25 03:00 08/29/25 03:07 08/29/25 03:49 Temperature 37.1 C 37.1 C 37.0 C Pulse Rate 108 H 110 H 108 H Respiratory Rate 19 20 12 Blood Pressure 99/70 L 99/75 L 106/64 Pulse Oximetry 98 100 100 Oxygen Delivery 08/29/25 04:00 08/29/25 04:00 08/29/25 04:00 Temperature 37.0 C Pulse Rate 108 H 108 H Respiratory Rate 21 H Blood Pressure 101/75 Pulse Oximetry 100 Oxygen Delivery Room Air 08/29/25 05:00 08/29/25 06:00 08/29/25 06:00 Temperature Pulse Rate 90 99 99 Respiratory Rate 19 12 Blood Pressure 92/56 L 108/71 Pulse Oximetry 95 100 Oxygen Delivery 08/29/25 07:00 08/29/25 07:37 08/29/25 08:00 Temperature 37.4 C Pulse Rate 83 102 H Respiratory Rate 18 18 Blood Pressure 85/45 L 88/73 L Pulse Oximetry 98 100 Oxygen Delivery Room Air 08/29/25 08:00 08/29/25 09:00 Temperature Pulse Rate 92 92 Respiratory Rate 18 Blood Pressure 99/51 L Pulse Oximetry 99 Oxygen Delivery Results Labs and Meds 08/29/25 05:37 08/29/25 05:37 Lab results: Cardiac Enzymes 08/28/25 Range/Units 16:10 AST 63 H (17-59) U/L Lipids 08/29/25 Range/Units 05:37 Triglycerides 371 H (<150) mg/dL Cholesterol 110 (0-200) mg/dL CBC 08/28/25 08/28/25 08/29/25 Range/Units 15:12 18:45 05:37 WBC 42.2 H 25.8 H 24.9 H (4.5-10.0) K/mm3 RBC 3.01 L 2.07 L 2.63 L (4.6-6.20) M/mm3 Hgb 9.6 L D 6.7 L* 8.4 L (14.0-18.0) g/dL Hct 29.6 L 20.6 L* 25.3 L (42.0-52.0) % Plt Count 149 L 95 L 83 L (150-375) k/mm3 Lymph # (Auto) Not Reportable 2.27 3.72 H Band[place] # (Auto) Not Reportable 1.9 H 1.9 H Eos # (Auto) Not Reportable 0.0 0.1 Baso # (Auto) Not Reportable 0.1 0.1 Comprehensive Metabolic Panel 08/28/25 08/29/25 Range/Units 16:10 05:37 Sodium 134 L 133 L (137-145) mmol/L Potassium 5.5 H 4.5 (3.4-5.0) mmol/L Chloride 106 112 H (98-107) mmol/L Carbon Dioxide 24 21 L (22-30) mmol/L BUN 46 H D 27 H D (9-20) mg/dL Creatinine 0.72 0.58 L (0.7-1.3) mg/dL Glucose 139 H 134 H (65-110) mg/dL Calcium 9.1 7.9 L (8.4-10.2) mg/dL AST 63 H (17-59) U/L ALT 103 H (6-50) U/L Alkaline Phosphatase 71 (38-126) U/L Total Protein 5.3 L (6.3-8.2) g/dL Albumin 2.5 L (3.5-5.1) g/dL Intake and Output 08/28/25 08/29/25 08/29/25 23:59 07:59 15:59 Intake Total 3798.3 1155.4 493.8 Output Total 1550 700 Balance 3798.3 -394.6 -206.2 Intake: IV 3448.3 805.4 493.8 Pantoprazole Sodium IV 80 mg In 482.5 Sodium Chloride 0.9% IV 500 ml @ 50 mls/hr IV CONT .Q10H STA Rx#:[id number] Sodium Chloride 0.9% IV 1,000 3283.3 222.9 493.8 ml @ 125 mls/hr IV CONT .Q8H CRISTHIAN Rx#:[id number] Sodium Chloride 0.9% IV 250 ml 115 @ 30 mls/hr IV CONT .Q8H20M STA Rx#:[id number] Piperacillin/Tazobactam Sod 3. 50 100 375 gm In Sodium Chloride 0.9% IV 50 ml @ 100 mls/hr IVPB Q6HR CRISTHIAN Rx#:[id number] Intake (Blood Product) Amt 350 350 Leukocyte Reduced Rbc Unit 350 [id number] Leukocyte Reduced Rbc Unit 350 [id number] Output: Urine 1550 700 Other: Number of Bowel Movements Today 4 Patient Weight 08/29/25 23:59 Weight 70.2 kg
--- NOTE | 2025-08-29 09:54 | WPDCNINT ---
Assessment and Plan Assessment and plan (1) Acute upper GI bleed: Code(s): K92.2 - Gastrointestinal hemorrhage, unspecified Status: Acute Assessment and Plan: Acute upper GI bleed which I suspect is secondary to either gastritis and peptic ulcer disease. Patient is on dual antiplatelet therapy and has been recently on steroids for 2 weeks. History of melena also confirms along with fall of hemoglobin Status post transfusion of 2 units PRBC. Hemodynamically appears to be stable at this time. Continue serial monitoring of hemoglobin and transfuse additional PRBC if needed He has not required platelet transfusion at this time. Antiplatelet medications on hold NPO IV fluids IV Protonix GI has been consulted patient is scheduled for EGD today. (2) Anemia: Code(s): D64.9 - Anemia, unspecified Status: Acute Assessment and Plan: Acute blood loss anemia. Management see above (3) Coronary artery disease: Qualifiers: Coronary Disease-Associated Artery/Lesion type: unspecified vessel or lesion type [place] vs. transplanted heart: [place] heart Associated angina: angina presence unspecified Qualified Code(s): I25.10 - Atherosclerotic heart disease of [place] coronary artery without angina pectoris Code(s): I25.10 - Atherosclerotic heart disease of [place] coronary artery without angina pectoris Status: Acute Assessment and Plan: Patient has history of coronary disease status post coronary artery bypass grafting and multiple stent placement last of which was in 2019. He is on dual antiplatelet therapy which will be held at this time due to GI bleed (4) Chronic pancreatitis: Code(s): K86.1 - Other chronic pancreatitis Status: Acute Assessment and Plan: Denies any pain at this time (5) Cirrhosis, non-alcoholic: Code(s): K74.60 - Unspecified cirrhosis of liver Status: Acute Assessment and Plan: Patient has history of cirrhosis although does not appear to be decompensated at this time. His INR was 1.2 and lactic acid level has improve Albumin is 2.5 Check ammonia Plan DVT prophylaxis -SCD Nutrition -NPO Code Status - Full Code Total Critical Care Time - 30 minutes Due to a high probability of clinically significant, life threatening deterioration, the patient required my highest level of preparedness to intervene emergently and I personally spent this critical care time directly and personally managing the patient. This critical care time included obtaining a history; examining the patient; pulse oximetry; ordering and review of studies; arranging urgent treatment with development of a management plan; evaluation of patient's response to treatment; frequent reassessment; and discussions with other providers. It was exclusive of separately billable procedures and treating other patients and teaching time. 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 Patient has had chronic back pain and was recently given 2 courses of prednisone. Patient is on dual antiplatelet therapy. Patient stated that he has been feeling weak for last couple days in the ER was found to be anemic. Patient then admitted that he had been noticing black stools although he thought that it was due to the berries he was eating. He denies any abdominal pain nausea vomiting chest pain shortness a breath fever loss of consciousness lightheadedness or dizziness. In the ER he was noticed to be anemic and was given 2 units of blood. Patient was admitted to ICU for closer monitoring. Workup in the ER showed Abdominal/pelvis CT was read as no acute intra-abdominal process except cirrhotic changes of the liver. Portal vein patent. No intrahepatic biliary duct dilatation. His white count initially was 42.2 and is now 25.8. Initial H&H was 9.6 and 29.6. He had thrombocytopenia His sodium levels 134 with potassium 5.5. His lactic was 5.2 and came down to 3.3 with 3 L of fluid. Patient was given IV fluid bolus and 2 units of PRBC. He was started on Protonix infusion. This morning he states he feels better and denies any complaints. Weakness is improved. No other new complaints. All other systems were reviewed and were negative. Review of Systems Review of Systems: All systems reviewed & are unremarkable except as noted in HPI and below (HPI) [facility] Past Medical History Medical History Prediabetes Low serum iron Chronic, continuous use of opioids Cirrhosis Previous liver biopsy confirming diagnosis. Apparently cryptogenic in etiology. GERD (gastroesophageal reflux disease) History of rectal polyps TIA (transient ischemic attack) Coronary artery disease Patient with history of premature coronary artery disease in his 40s. He is status post multivessel CABG. On several occasions he was taken to cardiac catheterization lab per Dr. Champion, and due to his complex disease he has at times required intervention at [facility]. Chronic pancreatitis Hyperlipidemia Hypertension Surgical History Surgical History History of repair of aneurysm of abdominal aorta using endovascular stent graft x3 Status post appendectomy, follow-up exam Status post coronary artery bypass graft 6 Hx of cardiac catheterization Last cardiac catheterization at this facility was May 31, [address] Champion. At that time it was noted that he had a patent stent to the circumflex. SVG to the OM and diagonal were apparently occluded. [place] to LAD was patent. There was severe stenosis to a very large caliber vein graft to the RCA with 95 to 99% stenosis. This was deemed to be too high risk and he was transferred to [facility], where a total of 6 stents were placed. (patient stated that he has 9 stents now.) History of tonsillectomy History of cholecystectomy History of heart artery stent Six vessel Family History Family History Mother Family history of cardiovascular disease Diabetes mellitus Myocardial infarct Sibling Diabetes mellitus Pancreatitis Social History Social History Social History: The patient lives in [place] with his . He designates his as his surrogate decision maker and he wishes to be a full code. 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 His primary care provider is Dr. Loreta Padilla. He smoked 1 to 2 cigars a day but quit in 2008 after his bypass. No alcohol or drug abuse. Code status: Full code Smoking status: Former smoker Tobacco type: cigars Smoking end date: 06/24/09 Alcohol intake: never Substance use: never Substance use type: does not use Lack of Transportation: No Lack of Food: Never True Current Housing: I Have Housing Concerned About Future Housing: No Difficulty Paying Gas/Electric Bills: No Difficulty Paying for Meds: No Currently Unemployed: No Education: High School Diploma/GED Difficulty w/ Childcare or Family Care: No Living arrangements: with family Additional living arrangements comments: Lives with . Occupation/Education: retired Gender identity (if verbalized by the patient): Male Sexual Orientation (if Verbalized by the Patient): Straight or Heterosexual Spiritual care concerns: No Agree to blood products: Yes Meds Home Medications and Allergies Home Medications ?Medication ?Instructions ?Recorded ?Confirmed ?Type metoprolol succinate 50 mg 50 mg PO DAILY 11/29/19 08/28/25 History tablet,extended release 24 hr ticagrelor 90 mg tablet (Brilinta) 90 mg PO Q12H 11/29/19 08/28/25 History evolocumab 140 mg/mL subcutaneous 140 mg subcut [id number] 12/31/19 08/28/25 History pen injector (Repatha SureClick) isosorbide mononitrate 30 mg 30 mg PO DAILY 12/31/19 08/28/25 History tablet,extended release 24 hr omega-3 fatty acids 1,000 mg 1,000 mg PO DAILY 12/31/19 08/28/25 History capsule aspirin 81 mg tablet,delayed 81 mg PO DAILY 01/03/20 08/28/25 History release (Adult Low Dose Aspirin) ergocalciferol (vitamin D2) 1,250 1,250 mcg PO WEEKLY #14 caps 05/16/21 08/28/25 Rx mcg (50,000 unit) capsule famotidine 40 mg tablet (Pepcid) 40 mg PO DAILY 11/06/21 08/28/25 History montelukast 10 mg tablet 10 mg PO QHS #30 tabs 11/06/21 08/28/25 Rx acetaminophen 500 mg capsule 1,000 mg (2 x 500 mg) PO Q6H PRN 05/23/25 08/28/25 Rx pain #30 caps niacin 1,000 mg tablet,extended 1,000 mg PO .at bedtime #90 tabs 06/22/25 08/28/25 Rx release 24 hr hydrocodone 7.5 mg-acetaminophen 1 tablet PO Q6H PRN pain #120 tabs 08/23/25 08/28/25 Rx 325 mg tablet nitroglycerin 0.4 mg sublingual 0.4 mg sublingual Q5M PRN chest 08/23/25 08/28/25 Rx tablet pain #100 tabs methocarbamol 750 mg tablet 750 mg PO HS #30 tabs 08/29/25 Rx Allergies Allergy/AdvReac Type Severity Reaction Status Date / Time [id number] Reductase Allergy Unknown liver Verified 08/28/25 21:03 Inhibitor (Pgkbstu-Hbn-Yab issues Reductase Inhibitor) Vital Signs Vital Signs - 24 hr 08/28/25 14:04 08/28/25 14:35 08/28/25 14:37 Temperature 36.4 C Pulse Rate 132 H 120 H 127 H Respiratory Rate 20 16 Blood Pressure 85/52 L 91/74 L 92/75 L Pulse Oximetry 98 97 Oxygen Delivery Room Air 08/28/25 14:40 08/28/25 14:45 08/28/25 15:00 Temperature Pulse Rate 123 H 118 H 127 H Respiratory Rate 19 12 22 H Blood Pressure 96/70 L 98/62 L 92/77 L Pulse Oximetry 97 97 97 Oxygen Delivery 08/28/25 15:00 08/28/25 15:15 08/28/25 15:32 Temperature Pulse Rate 127 H 126 H 101 H Respiratory Rate 22 H 21 H 19 Blood Pressure 92/77 L 97/74 L Pulse Oximetry 97 97 95 Oxygen Delivery 08/28/25 15:55 08/28/25 16:12 08/28/25 16:20 Temperature Pulse Rate 98 100 97 Respiratory Rate 21 H 14 16 Blood Pressure Pulse Oximetry 99 100 99 Oxygen Delivery 08/28/25 16:34 08/28/25 16:54 08/28/25 17:00 Temperature Pulse Rate 97 105 H 107 H Respiratory Rate 13 20 17 Blood Pressure 89/67 L Pulse Oximetry 99 97 96 Oxygen Delivery 08/28/25 17:01 08/28/25 17:40 08/28/25 17:53 Temperature Pulse Rate 106 H 106 H Respiratory Rate 18 18 Blood Pressure 93/70 L 109/71 Pulse Oximetry 97 98 Oxygen Delivery 08/28/25 18:01 08/28/25 18:26 08/28/25 18:35 Temperature Pulse Rate 101 H 105 H 105 H Respiratory Rate 12 16 20 Blood Pressure 96/69 L 90/63 L 102/71 Pulse Oximetry 98 98 100 Oxygen Delivery 08/28/25 19:00 08/28/25 19:21 08/28/25 19:41 Temperature Pulse Rate 105 H 112 H 112 H Respiratory Rate 16 13 11 L Blood Pressure 91/65 L 108/79 107/64 Pulse Oximetry 99 98 97 Oxygen Delivery 08/28/25 19:47 08/28/25 19:56 08/28/25 20:15 Temperature 37.0 C 36.4 C 37.1 C Pulse Rate 110 H 111 H 116 H Respiratory Rate 14 11 L 12 Blood Pressure 107/64 107/64 107/68 Pulse Oximetry 100 95 97 Oxygen Delivery 08/28/25 21:00 08/28/25 21:00 08/28/25 21:00 Temperature 37.3 C Pulse Rate 131 H 131 H Respiratory Rate 21 H Blood Pressure 99/62 L Pulse Oximetry 100 Oxygen Delivery Room Air 08/28/25 21:15 08/28/25 22:00 08/28/25 22:00 Temperature 37.3 C Pulse Rate 112 H 115 H 118 H Respiratory Rate 21 H 16 Blood Pressure 109/61 108/82 Pulse Oximetry 99 99 Oxygen Delivery 08/28/25 22:15 08/28/25 23:00 08/28/25 23:15 Temperature 37.1 C 37.4 C Pulse Rate 118 H 115 H 113 H Respiratory Rate 16 18 18 Blood Pressure 108/82 91/77 L 102/70 Pulse Oximetry 97 99 100 Oxygen Delivery 08/28/25 23:30 08/29/25 00:00 08/29/25 00:00 Temperature 36.8 C Pulse Rate 115 H 114 H Respiratory Rate 21 H 19 Blood Pressure 104/73 102/73 Pulse Oximetry 98 99 Oxygen Delivery Room Air 08/29/25 00:00 08/29/25 00:52 08/29/25 01:00 Temperature 37.0 C Pulse Rate 111 H 112 H 109 H Respiratory Rate 21 H 20 Blood Pressure 106/69 91/73 L Pulse Oximetry 97 99 Oxygen Delivery 08/29/25 01:07 08/29/25 02:00 08/29/25 02:07 Temperature 36.8 C 36.9 C 36.9 C Pulse Rate 114 H 117 H 115 H Respiratory Rate 20 20 20 Blood Pressure 101/73 112/80 110/71 Pulse Oximetry 98 100 100 Oxygen Delivery 08/29/25 03:00 08/29/25 03:07 08/29/25 03:49 Temperature 37.1 C 37.1 C 37.0 C Pulse Rate 108 H 110 H 108 H Respiratory Rate 19 20 12 Blood Pressure 99/70 L 99/75 L 106/64 Pulse Oximetry 98 100 100 Oxygen Delivery 08/29/25 04:00 08/29/25 04:00 08/29/25 04:00 Temperature 37.0 C Pulse Rate 108 H 108 H Respiratory Rate 21 H Blood Pressure 101/75 Pulse Oximetry 100 Oxygen Delivery Room Air 08/29/25 05:00 08/29/25 06:00 08/29/25 06:00 Temperature Pulse Rate 90 99 99 Respiratory Rate 19 12 Blood Pressure 92/56 L 108/71 Pulse Oximetry 95 100 Oxygen Delivery 08/29/25 07:00 08/29/25 07:37 08/29/25 08:00 Temperature 37.4 C Pulse Rate 83 102 H Respiratory Rate 18 18 Blood Pressure 85/45 L 88/73 L Pulse Oximetry 98 100 Oxygen Delivery Room Air 08/29/25 08:00 08/29/25 09:00 Temperature Pulse Rate 92 92 Respiratory Rate 18 Blood Pressure 99/51 L Pulse Oximetry 99 Oxygen Delivery Exam Narrative: General: Pt is alert awake and in NAD Lungs/Chest: Trachea central Clear BS B/L, No crackles or wheezing. Cardiac: RRR. Normal S1 S2. No murmurs Circulation: Pedal pulses are intact and symmetrical. Abdomen: Normal bowel sounds.. Soft. NT. ND. Extremities: No clubbing, cyanosis or edema. Warm : [place] in place Neurologic: Follows commands. Moves all 4 extremities PERRL AO x3 Skin: No Rash Results Labs 08/29/25 05:37 08/29/25 05:37 Labs: Impressions Abdomen/Pelvis CT 08/28/25 17:31 IMPRESSION: 1. No acute intra-abdominal process. Incidental findings above Chest X-Ray 08/29/25 09:08 IMPRESSION: 1. Coarse reticular opacities at the bilateral lung bases corresponding to emphysema and usual interstitial pneumonia (UIP) pattern chronic interstitial lung disease on prior CT. Short CBC 08/28/25 08/28/25 08/29/25 Range/Units 15:12 18:45 05:37 WBC 42.2 H 25.8 H 24.9 H (4.5-10.0) K/mm3 Hgb 9.6 L D 6.7 L* 8.4 L (14.0-18.0) g/dL Hct 29.6 L 20.6 L* 25.3 L (42.0-52.0) % Plt Count 149 L 95 L 83 L (150-375) k/mm3 BMP 08/28/25 08/29/25 16:10 05:37 Sodium 134 L 133 L Potassium 5.5 H 4.5 Chloride 106 112 H Carbon Dioxide 24 21 L BUN 46 H D 27 H D Creatinine 0.72 0.58 L Glucose 139 H 134 H Calcium 9.1 7.9 L Liver Function 08/28/25 Range/Units 16:10 Total Bilirubin 0.4 (0.2-1.3) mg/dL AST 63 H (17-59) U/L ALT 103 H (6-50) U/L Alkaline Phosphatase 71 (38-126) U/L Albumin 2.5 L (3.5-5.1) g/dL Urine 08/28/25 Range/Units 16:28 Urine Color Yellow (Yellow) Urine Appearance Clear (Clear) Urine pH 6.0 (5.0-9.0) Ur Specific [place] 1.017 (1.001-1.035) Urine Protein Negative (Negative) mg/dL Urine Glucose (UA) Negative (Negative) mg/dL Quality VTE Prophylaxis VTE prophylaxis: mechanical ordered Hospitalist MIPS Advance Care Plan I have confirmed that the patient's Advanced Care Plan is present, code status is documented, or surrogate decision maker is listed in patient medical record.: Yes Medication Reconciliation I have utilized all available resources to obtain, update and review the patients current medications (includes all prescriptions, OTC, herbals, cannabis, and nutritional supplements).: Yes
[2025-08-29 11:42] LABS: Hematocrit 23.5 % (42.0-52.0); Hemoglobin 7.7 g/dL (14.0-18.0)
[2025-08-29 11:51] LABS: Ammonia < 9 umol/L (9-30)
--- NOTE | 2025-08-29 13:25 | WPDGICN ---
Assessment and Plan Assessment and plan (1) Cirrhosis, non-alcoholic: Code(s): K74.60 - Unspecified cirrhosis of liver Status: Acute Assessment and Plan: The patient has a baseline compensated cirrhosis, presenting now with a significant drop in hematocrit associated with melena. The most likely source of upper GI bleeding, in the face of double anti aggregation and oral corticosteroids is erosive gastritis versus peptic ulcer disease, or possibly a variceal bleeding vs. portal hypertensive gastropathy. Will keep patient in the ICU for monitoring purposes, with pantoprazole intravenously and will perform an EGD later today. (2) Acute upper GI bleed: Code(s): K92.2 - Gastrointestinal hemorrhage, unspecified Status: Acute GI Consult Note Consult date/time: 08/29/25 13:25 Reason for consult: Melena-anemia HPI: Kashif Rhodes is a 64 year old male with a history of diabetes, cirrhosis presumably secondary to MASLD, (never had decompensation) , severe coronary artery disease since his 40s, status post multivessel CABG, having had multiple cardiac catheterizations and currently taking Brilinta and aspirin. He was taking prednisone for back pain and started developing progressive weakness are dark stools over the past 48 hours. His admission hemoglobin was 6.7 and he received 2 units of packed red blood cells after he has hemodynamic status stabilized. He is currently hospitalized in intensive care unit and had for melanotic bowel movements last night. Review of Systems Review of Systems: All systems reviewed & are unremarkable except as noted in HPI and below PMFSH Past Medical History Medical History Prediabetes Low serum iron Chronic, continuous use of opioids Cirrhosis Previous liver biopsy confirming diagnosis. Apparently cryptogenic in etiology. GERD (gastroesophageal reflux disease) History of rectal polyps TIA (transient ischemic attack) Coronary artery disease Patient with history of premature coronary artery disease in his 40s. He is status post multivessel CABG. On several occasions he was taken to cardiac catheterization lab per Dr. Champion, and due to his complex disease he has at times required intervention at [facility]. Chronic pancreatitis Hyperlipidemia Hypertension Surgical History Surgical History History of repair of aneurysm of abdominal aorta using endovascular stent graft x3 Status post appendectomy, follow-up exam Status post coronary artery bypass graft 6 Hx of cardiac catheterization Last cardiac catheterization at this facility was May 31, [address] Champion. At that time it was noted that he had a patent stent to the circumflex. SVG to the OM and diagonal were apparently occluded. [place] to LAD was patent. There was severe stenosis to a very large caliber vein graft to the RCA with 95 to 99% stenosis. This was deemed to be too high risk and he was transferred to [facility], where a total of 6 stents were placed. (patient stated that he has 9 stents now.) History of tonsillectomy History of cholecystectomy History of heart artery stent Six vessel Family History Family History Mother Family history of cardiovascular disease Diabetes mellitus Myocardial infarct Sibling Diabetes mellitus Pancreatitis Social History Social History Social History: The patient lives in [place] with his . He designates his as his surrogate decision maker and he wishes to be a full code. 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 His primary care provider is Dr. Loreta Padilla. He smoked 1 to 2 cigars a day but quit in 2008 after his bypass. No alcohol or drug abuse. Code status: Full code Smoking status: Former smoker Tobacco type: cigars Smoking end date: 06/24/09 Alcohol intake: never Substance use: never Substance use type: does not use Lack of Transportation: No Lack of Food: Never True Current Housing: I Have Housing Concerned About Future Housing: No Difficulty Paying Gas/Electric Bills: No Difficulty Paying for Meds: No Currently Unemployed: No Education: High School Diploma/GED Difficulty w/ Childcare or Family Care: No Living arrangements: with family Additional living arrangements comments: Lives with . Occupation/Education: retired Gender identity (if verbalized by the patient): Male Sexual Orientation (if Verbalized by the Patient): Straight or Heterosexual Spiritual care concerns: No Agree to blood products: Yes Meds Home Medications and Allergies Home Medications ?Medication ?Instructions ?Recorded ?Confirmed ?Type metoprolol succinate 50 mg 50 mg PO DAILY 11/29/19 08/28/25 History tablet,extended release 24 hr ticagrelor 90 mg tablet (Brilinta) 90 mg PO Q12H 11/29/19 08/28/25 History evolocumab 140 mg/mL subcutaneous 140 mg subcut [id number] 12/31/19 08/28/25 History pen injector (Jose Roberto Drake) isosorbide mononitrate 30 mg 30 mg PO DAILY 12/31/19 08/28/25 History tablet,extended release 24 hr omega-3 fatty acids 1,000 mg 1,000 mg PO DAILY 12/31/19 08/28/25 History capsule aspirin 81 mg tablet,delayed 81 mg PO DAILY 01/03/20 08/28/25 History release (Adult Low Dose Aspirin) ergocalciferol (vitamin D2) 1,250 1,250 mcg PO WEEKLY #14 caps 05/16/21 08/28/25 Rx mcg (50,000 unit) capsule famotidine 40 mg tablet (Pepcid) 40 mg PO DAILY 11/06/21 08/28/25 History montelukast 10 mg tablet 10 mg PO QHS #30 tabs 11/06/21 08/28/25 Rx acetaminophen 500 mg capsule 1,000 mg (2 x 500 mg) PO Q6H PRN 05/23/25 08/28/25 Rx pain #30 caps niacin 1,000 mg tablet,extended 1,000 mg PO .at bedtime #90 tabs 06/22/25 08/28/25 Rx release 24 hr hydrocodone 7.5 mg-acetaminophen 1 tablet PO Q6H PRN pain #120 tabs 08/23/25 08/28/25 Rx 325 mg tablet nitroglycerin 0.4 mg sublingual 0.4 mg sublingual Q5M PRN chest 08/23/25 08/28/25 Rx tablet pain #100 tabs methocarbamol 750 mg tablet 750 mg PO HS #30 tabs 08/29/25 Rx Allergies Allergy/AdvReac Type Severity Reaction Status Date / Time [id number] Reductase Allergy Unknown liver Verified 08/28/25 21:03 Inhibitor ([id number] issues Reductase Inhibitor) Vital Signs Vital Signs - 24 hr 08/28/25 14:04 08/28/25 14:35 08/28/25 14:37 Temperature 97.6 F Pulse Rate 132 H 120 H 127 H Respiratory Rate 20 16 Blood Pressure 85/52 L 91/74 L 92/75 L Pulse Oximetry 98 97 Oxygen Delivery Room Air 08/28/25 14:40 08/28/25 14:45 08/28/25 15:00 Temperature Pulse Rate 123 H 118 H 127 H Respiratory Rate 19 12 22 H Blood Pressure 96/70 L 98/62 L 92/77 L Pulse Oximetry 97 97 97 Oxygen Delivery 08/28/25 15:00 08/28/25 15:15 08/28/25 15:32 Temperature Pulse Rate 127 H 126 H 101 H Respiratory Rate 22 H 21 H 19 Blood Pressure 92/77 L 97/74 L Pulse Oximetry 97 97 95 Oxygen Delivery 08/28/25 15:55 08/28/25 16:12 08/28/25 16:20 Temperature Pulse Rate 98 100 97 Respiratory Rate 21 H 14 16 Blood Pressure Pulse Oximetry 99 100 99 Oxygen Delivery 08/28/25 16:34 08/28/25 16:54 08/28/25 17:00 Temperature Pulse Rate 97 105 H 107 H Respiratory Rate 13 20 17 Blood Pressure 89/67 L Pulse Oximetry 99 97 96 Oxygen Delivery 08/28/25 17:01 08/28/25 17:40 08/28/25 17:53 Temperature Pulse Rate 106 H 106 H Respiratory Rate 18 18 Blood Pressure 93/70 L 109/71 Pulse Oximetry 97 98 Oxygen Delivery 08/28/25 18:01 08/28/25 18:26 08/28/25 18:35 Temperature Pulse Rate 101 H 105 H 105 H Respiratory Rate 12 16 20 Blood Pressure 96/69 L 90/63 L 102/71 Pulse Oximetry 98 98 100 Oxygen Delivery 08/28/25 19:00 08/28/25 19:21 08/28/25 19:41 Temperature Pulse Rate 105 H 112 H 112 H Respiratory Rate 16 13 11 L Blood Pressure 91/65 L 108/79 107/64 Pulse Oximetry 99 98 97 Oxygen Delivery 08/28/25 19:47 08/28/25 19:56 08/28/25 20:15 Temperature 98.6 F 97.6 F 98.8 F Pulse Rate 110 H 111 H 116 H Respiratory Rate 14 11 L 12 Blood Pressure 107/64 107/64 107/68 Pulse Oximetry 100 95 97 Oxygen Delivery 08/28/25 21:00 08/28/25 21:00 08/28/25 21:00 Temperature 99.1 F Pulse Rate 131 H 131 H Respiratory Rate 21 H Blood Pressure 99/62 L Pulse Oximetry 100 Oxygen Delivery Room Air 08/28/25 21:15 08/28/25 22:00 08/28/25 22:00 Temperature 99.1 F Pulse Rate 112 H 115 H 118 H Respiratory Rate 21 H 16 Blood Pressure 109/61 108/82 Pulse Oximetry 99 99 Oxygen Delivery 08/28/25 22:15 08/28/25 23:00 08/28/25 23:15 Temperature 98.8 F 99.3 F Pulse Rate 118 H 115 H 113 H Respiratory Rate 16 18 18 Blood Pressure 108/82 91/77 L 102/70 Pulse Oximetry 97 99 100 Oxygen Delivery 08/28/25 23:30 08/29/25 00:00 08/29/25 00:00 Temperature 98.2 F Pulse Rate 115 H 114 H Respiratory Rate 21 H 19 Blood Pressure 104/73 102/73 Pulse Oximetry 98 99 Oxygen Delivery Room Air 08/29/25 00:00 08/29/25 00:52 08/29/25 01:00 Temperature 98.6 F Pulse Rate 111 H 112 H 109 H Respiratory Rate 21 H 20 Blood Pressure 106/69 91/73 L Pulse Oximetry 97 99 Oxygen Delivery 08/29/25 01:07 08/29/25 02:00 08/29/25 02:07 Temperature 98.2 F 98.4 F 98.4 F Pulse Rate 114 H 117 H 115 H Respiratory Rate 20 20 20 Blood Pressure 101/73 112/80 110/71 Pulse Oximetry 98 100 100 Oxygen Delivery 08/29/25 03:00 08/29/25 03:07 08/29/25 03:49 Temperature 98.7 F 98.7 F 98.6 F Pulse Rate 108 H 110 H 108 H Respiratory Rate 19 20 12 Blood Pressure 99/70 L 99/75 L 106/64 Pulse Oximetry 98 100 100 Oxygen Delivery 08/29/25 04:00 08/29/25 04:00 08/29/25 04:00 Temperature 98.6 F Pulse Rate 108 H 108 H Respiratory Rate 21 H Blood Pressure 101/75 Pulse Oximetry 100 Oxygen Delivery Room Air 08/29/25 05:00 08/29/25 06:00 08/29/25 06:00 Temperature Pulse Rate 90 99 99 Respiratory Rate 19 12 Blood Pressure 92/56 L 108/71 Pulse Oximetry 95 100 Oxygen Delivery 08/29/25 07:00 08/29/25 07:37 08/29/25 08:00 Temperature 99.3 F Pulse Rate 83 102 H Respiratory Rate 18 18 Blood Pressure 85/45 L 88/73 L Pulse Oximetry 98 100 Oxygen Delivery Room Air 08/29/25 08:00 08/29/25 09:00 08/29/25 10:00 Temperature Pulse Rate 92 92 102 H Respiratory Rate 18 18 Blood Pressure 99/51 L 93/70 L Pulse Oximetry 99 99 Oxygen Delivery 08/29/25 10:00 08/29/25 11:00 08/29/25 12:00 Temperature 99.1 F Pulse Rate 99 107 H 122 H Respiratory Rate 18 18 Blood Pressure 105/75 105/78 Pulse Oximetry 99 100 Oxygen Delivery 08/29/25 12:00 08/29/25 12:00 Temperature Pulse Rate 133 H Respiratory Rate Blood Pressure Pulse Oximetry Oxygen Delivery Room Air Exam Const: General: cooperative and healthy appearing Resp: Effort & Inspection: normal respiratory effort and able to speak in complete sentences Auscultation: clear to auscultation bilaterally Cardio: Rate: regular rate Rhythm: regular rhythm GI: Inspection: normal to inspection GI Palp: No No hepatosplenomegaly present Auscultation: normal bowel sounds Rectal Exam: deferred Skin: General skin exam: normal color Psych: Appearance: grossly normal Mental Status: mental status grossly normal Results Labs 08/29/25 11:33 08/29/25 05:37 Labs: Short CBC 08/28/25 08/28/25 08/29/25 Range/Units 15:12 18:45 05:37 WBC 42.2 H 25.8 H 24.9 H (4.5-10.0) K/mm3 Hgb 9.6 L D 6.7 L* 8.4 L (14.0-18.0) g/dL Hct 29.6 L 20.6 L* 25.3 L (42.0-52.0) % Plt Count 149 L 95 L 83 L (150-375) k/mm3 08/29/25 Range/Units 11:33 WBC (4.5-10.0) K/mm3 Hgb 7.7 L (14.0-18.0) g/dL Hct 23.5 L (42.0-52.0) % Plt Count (150-375) k/mm3 BMP 08/28/25 08/29/25 16:10 05:37 Sodium 134 L 133 L Potassium 5.5 H 4.5 Chloride 106 112 H Carbon Dioxide 24 21 L BUN 46 H D 27 H D Creatinine 0.72 0.58 L Glucose 139 H 134 H Calcium 9.1 7.9 L Liver Function 08/28/25 Range/Units 16:10 Total Bilirubin 0.4 (0.2-1.3) mg/dL AST 63 H (17-59) U/L ALT 103 H (6-50) U/L Alkaline Phosphatase 71 (38-126) U/L Albumin 2.5 L (3.5-5.1) g/dL Urine 08/28/25 Range/Units 16:28 Urine Color Yellow (Yellow) Urine Appearance Clear (Clear) Urine pH 6.0 (5.0-9.0) Ur Specific [place] 1.017 (1.001-1.035) Urine Protein Negative (Negative) mg/dL Urine Glucose (UA) Negative (Negative) mg/dL
[2025-08-29] MEDS: LACTATED RINGERS 1,000 ML 150 ML IV CONT (14:10)
--- NOTE | 2025-08-29 14:10 | WPDANESEPPF ---
Anes - Initial Pre Proc Eval Procedure: Operation Date: 08/29/25 14:00 Proposed Procedures p Esophagogastroduodenoscopy - Fab Matthew MD Date/Time: 08/29/25 14:10 Surgeon: Emanuel Chou MD Pre Op Diagnosis: sepsis unknown source, vomiting, anemia Patient Data Age: 64 Gender: M Height: 1.83 m Weight: 70.2 kg Last Vital Signs Temp 37.0 C 08/29/25 14:05 Pulse 100 08/29/25 14:05 Resp 20 08/29/25 14:05 BP 102/75 08/29/25 14:05 Pulse Ox 100 08/29/25 14:05 O2 Del Method Room Air 08/29/25 14:05 Allergies Allergy/AdvReac Type Severity Reaction Status Date / Time [id number] Reductase Allergy Unknown liver Verified 08/29/25 14:03 Inhibitor (Mqfybem-Yrx-Bxx issues Reductase Inhibitor) Home Medications ?Medication ?Instructions ?Recorded ?Confirmed ?Type metoprolol succinate 50 mg 50 mg PO DAILY 11/29/19 08/28/25 History tablet,extended release 24 hr ticagrelor 90 mg tablet (Brilinta) 90 mg PO Q12H 11/29/19 08/28/25 History evolocumab 140 mg/mL subcutaneous 140 mg subcut [id number] 12/31/19 08/28/25 History pen injector (Repatha SureClick) isosorbide mononitrate 30 mg 30 mg PO DAILY 12/31/19 08/28/25 History tablet,extended release 24 hr omega-3 fatty acids 1,000 mg 1,000 mg PO DAILY 12/31/19 08/28/25 History capsule aspirin 81 mg tablet,delayed 81 mg PO DAILY 01/03/20 08/28/25 History release (Adult Low Dose Aspirin) ergocalciferol (vitamin D2) 1,250 1,250 mcg PO WEEKLY #14 caps 05/16/21 08/28/25 Rx mcg (50,000 unit) capsule famotidine 40 mg tablet (Pepcid) 40 mg PO DAILY 11/06/21 08/28/25 History montelukast 10 mg tablet 10 mg PO QHS #30 tabs 11/06/21 08/28/25 Rx acetaminophen 500 mg capsule 1,000 mg (2 x 500 mg) PO Q6H PRN 05/23/25 08/28/25 Rx pain #30 caps niacin 1,000 mg tablet,extended 1,000 mg PO .at bedtime #90 tabs 06/22/25 08/28/25 Rx release 24 hr hydrocodone 7.5 mg-acetaminophen 1 tablet PO Q6H PRN pain #120 tabs 08/23/25 08/28/25 Rx 325 mg tablet nitroglycerin 0.4 mg sublingual 0.4 mg sublingual Q5M PRN chest 08/23/25 08/28/25 Rx tablet pain #100 tabs methocarbamol 750 mg tablet 750 mg PO HS #30 tabs 08/29/25 Rx Laboratory Tests 08/28/25 08/28/25 08/28/25 15:12 16:10 16:20 WBC 42.2 H K/mm3 (4.5-10.0) RBC 3.01 L M/mm3 (4.6-6.20) Hgb 9.6 L D g/dL (14.0-18.0) Hct 29.6 L % (42.0-52.0) MCV 98.3 fl (80-100) MCH 31.9 pg (26-34) MCHC 32.4 g/dl (32-36) RDW 14.9 H % (11.5-14.5) Plt Count 149 L k/mm3 (150-375) MPV 11.1 H fl (7.4-10.4) Immature Gran % (Auto) Not Reportable Neut % (Auto) Not Reportable Lymph % (Auto) Not Reportable Spencer % (Auto) Not Reportable Eos % (Auto) Not Reportable Baso % (Auto) Not Reportable Lymph # (Auto) Not Reportable Spencer # (Auto) Not Reportable Eos # (Auto) Not Reportable Baso # (Auto) Not Reportable Abs Immat Gran (auto) Not Reportable Absolute Neuts (auto) Not Reportable Absolute Nucleated RBC Not Reportable Total Counted 100 Neutrophils % (Manual) 76 H % (46-73) Band Neutrophils % 4 % (0-6) Lymphocytes % (Manual) 10 L % (18-44) Monocytes % (Manual) 4 % (3-9) Basophils % (Manual) 1 % (0-1) Metamyelocytes % 3 % Myelocytes % Not Reportable Promyelocytes % (Man) 2 % Nucleated RBC % Not Reportable Abs Neuts (Manual) 33.76 H K/mm3 (1.3-6.7) Abs Lymphs (Manual) 4.22 K/mm3 (1.1-4.5) Abs Monocytes (Manual) 1.68 H K/mm3 (0.1-0.90) Abs Basophils (Manual) 0.42 H K/mm3 (0.0-0.1) Nucleated RBCs 3 % Platelet Estimate Adequate (Adequate) % Immature Plt Fraction Basophilic Stippling Occasional Anisocytosis 1+ Macrocytosis 1+ (NORMAL) Schistocytes None seen Sodium 134 L mmol/L (137-145) Potassium 5.5 H mmol/L (3.4-5.0) Chloride 106 mmol/L (98-107) Carbon Dioxide 24 mmol/L (22-30) Anion Gap 4 mmol/L (4-12) BUN 46 H D mg/dL (9-20) Creatinine 0.72 mg/dL (0.7-1.3) Estim Creat Clear Calc 83 ml/min Estimated GFR > 60 (59 - ) Glucose 139 H mg/dL (65-110) Hemoglobin A1c 6.4 H % (<5.7) Lactic Acid 5.2 H* mmol/L (0.7-2.0) Calcium 9.1 mg/dL (8.4-10.2) Iron 65 ug/dL (49-181) TIBC 263 L ug/dL (265-497) % Saturation 25 % (20-50) Ferritin 36.00 ng/mL (11.1-264) Total Bilirubin 0.4 mg/dL (0.2-1.3) AST 63 H U/L (17-59) ALT 103 H U/L (6-50) Alkaline Phosphatase 71 U/L (38-126) Ammonia Total Protein 5.3 L g/dL (6.3-8.2) Albumin 2.5 L g/dL (3.5-5.1) Triglycerides Cholesterol LDL Cholesterol Direct HDL Direct Lipase 28 U/L (23-300) Vitamin B12 304.0 pg/mL (239-931) Folate 4.8 ng/mL (2.76->20) Urine Color Urine Appearance Urine pH Ur Specific [place] Urine Protein Urine Glucose (UA) Urine Ketones Ur Blood (Man) Urine Nitrate Urine Bilirubin Urine Urobilinogen Leukocyte Esterase Rfl Nasal MRSA (PCR) Stl Occult Blood (IFOB) C. difficile (PCR) Blood Type Antibody Screen Crossmatch 08/28/25 08/28/25 08/28/25 16:28 17:34 18:45 WBC 25.8 H K/mm3 (4.5-10.0) RBC 2.07 L M/mm3 (4.6-6.20) Hgb 6.7 L* g/dL (14.0-18.0) Hct 20.6 L* % (42.0-52.0) MCV 99.5 fl (80-100) MCH 32.4 pg (26-34) MCHC 32.5 g/dl (32-36) RDW 14.7 H % (11.5-14.5) Plt Count 95 L k/mm3 (150-375) MPV 10.6 H fl (7.4-10.4) Immature Gran % (Auto) 8.2 H % (0-0.5) Neut % (Auto) 75.1 H % (45.5-73.1) Lymph % (Auto) 8.8 L % (18.3-44.2) Spencer % (Auto) 7.5 % (2.6-8.5) Eos % (Auto) 0.2 % (0-4.4) Baso % (Auto) 0.2 % (0.2-1.2) Lymph # (Auto) 2.27 K/mm3 (0.9-3.2) Spencer # (Auto) 1.9 H K/mm3 (0.1-0.6) Eos # (Auto) 0.0 K/mm3 (0-0.3) Baso # (Auto) 0.1 K/mm3 (0.0-0.1) Abs Immat Gran (auto) 2.11 H K/mm3 (0.00-0.031) Absolute Neuts (auto) 19.3 H K/mm3 (1.3-6.7) Absolute Nucleated RBC 0.180 H K/mm3 (0.0-0.012) Total Counted Neutrophils % (Manual) Band Neutrophils % Not Reportable Lymphocytes % (Manual) Monocytes % (Manual) Basophils % (Manual) Metamyelocytes % Myelocytes % Promyelocytes % (Man) Nucleated RBC % 0.7 H % (0.0-0.2) Abs Neuts (Manual) Abs Lymphs (Manual) Abs Monocytes (Manual) Abs Basophils (Manual) Nucleated RBCs Platelet Estimate Decreased (Adequate) % Immature Plt Fraction 5.8 % (0.9-11.2) Basophilic Stippling Anisocytosis Macrocytosis Schistocytes None seen Sodium Potassium Chloride Carbon Dioxide Anion Gap BUN Creatinine Estim Creat Clear Calc Estimated GFR Glucose Hemoglobin A1c Lactic Acid 3.3 H mmol/L (0.7-2.0) Calcium Iron TIBC % Saturation Ferritin Total Bilirubin AST ALT Alkaline Phosphatase Ammonia Total Protein Albumin Triglycerides Cholesterol LDL Cholesterol Direct HDL Direct Lipase Vitamin B12 Folate Urine Color Yellow (Yellow) Urine Appearance Clear (Clear) Urine pH 6.0 (5.0-9.0) Ur Specific [place] 1.017 (1.001-1.035) Urine Protein Negative mg/dL (Negative) Urine Glucose (UA) Negative mg/dL (Negative) Urine Ketones Negative mg/dL (Negative) Ur Blood (Man) Negative (Negative) Urine Nitrate Negative (Negative) Urine Bilirubin Negative (Negative) Urine Urobilinogen 0.2 mg/dL (<2.0) Leukocyte Esterase Rfl Negative ORTIZ/UL (Negative) Nasal MRSA (PCR) Stl Occult Blood (IFOB) C. difficile (PCR) Blood Type O Positive Antibody Screen Negative Crossmatch See Detail 08/29/25 08/29/25 08/29/25 00:31 05:37 11:33 WBC 24.9 H K/mm3 (4.5-10.0) RBC 2.63 L M/mm3 (4.6-6.20) Hgb 8.4 L g/dL 7.7 L g/dL (14.0-18.0) (14.0-18.0) Hct 25.3 L % 23.5 L % (42.0-52.0) (42.0-52.0) MCV 96.2 fl (80-100) MCH 31.9 pg (26-34) MCHC 33.2 g/dl (32-36) RDW 14.8 H % (11.5-14.5) Plt Count 83 L k/mm3 (150-375) MPV 10.9 H fl (7.4-10.4) Immature Gran % (Auto) 5.8 H % (0-0.5) Neut % (Auto) 70.9 % (45.5-73.1) Lymph % (Auto) 14.9 L % (18.3-44.2) Spencer % (Auto) 7.5 % (2.6-8.5) Eos % (Auto) 0.5 % (0-4.4) Baso % (Auto) 0.4 % (0.2-1.2) Lymph # (Auto) 3.72 H K/mm3 (0.9-3.2) Spencer # (Auto) 1.9 H K/mm3 (0.1-0.6) Eos # (Auto) 0.1 K/mm3 (0-0.3) Baso # (Auto) 0.1 K/mm3 (0.0-0.1) Abs Immat Gran (auto) 1.45 H K/mm3 (0.00-0.031) Absolute Neuts (auto) 17.7 H K/mm3 (1.3-6.7) Absolute Nucleated RBC 0.140 H K/mm3 (0.0-0.012) Total Counted 100 Neutrophils % (Manual) 69 % (46-73) Band Neutrophils % 5 % (0-6) Lymphocytes % (Manual) 15.0 L % (18-44) Monocytes % (Manual) 10 H % (3-9) Basophils % (Manual) Metamyelocytes % 1 % Myelocytes % Promyelocytes % (Man) Nucleated RBC % 0.6 H % (0.0-0.2) Abs Neuts (Manual) 18.42 H K/mm3 (1.3-6.7) Abs Lymphs (Manual) 3.73 K/mm3 (1.1-4.5) Abs Monocytes (Manual) 2.49 H K/mm3 (0.1-0.90) Abs Basophils (Manual) Nucleated RBCs 1 % Platelet Estimate Decreased (Adequate) % Immature Plt Fraction 5.6 % (0.9-11.2) Basophilic Stippling Anisocytosis Occasional Macrocytosis Schistocytes None seen Sodium 133 L mmol/L (137-145) Potassium 4.5 mmol/L (3.4-5.0) Chloride 112 H mmol/L (98-107) Carbon Dioxide 21 L mmol/L (22-30) Anion Gap 0 L mmol/L (4-12) BUN 27 H D mg/dL (9-20) Creatinine 0.58 L mg/dL (0.7-1.3) Estim Creat Clear Calc 108 ml/min Estimated GFR > 60 (59 - ) Glucose 134 H mg/dL (65-110) Hemoglobin A1c Lactic Acid 2.7 H mmol/L (0.7-2.0) Calcium 7.9 L mg/dL (8.4-10.2) Iron TIBC % Saturation Ferritin Total Bilirubin AST ALT Alkaline Phosphatase Ammonia < 9 L umol/L (9-30) Total Protein Albumin Triglycerides 371 H mg/dL (<150) Cholesterol 110 mg/dL (0-200) LDL Cholesterol Direct < 30 mg/dL HDL Direct 28 mg/dL Lipase 44 U/L (23-300) Vitamin B12 Folate Urine Color Urine Appearance Urine pH Ur Specific [place] Urine Protein Urine Glucose (UA) Urine Ketones Ur Blood (Man) Urine Nitrate Urine Bilirubin Urine Urobilinogen Leukocyte Esterase Rfl Nasal MRSA (PCR) Not detected (NOT DETECTE) Stl Occult Blood (IFOB) Positive H (N) C. difficile (PCR) Negative (NEGATIVE) Blood Type Antibody Screen Crossmatch Patient hx anesthesia problems: none Family hx anesthesia problems: none Results Review: All pre-operative results and documents have been reviewed as part of the pre-operative evaluation. [facility] Past Medical History Medical History Prediabetes Low serum iron Chronic, continuous use of opioids Cirrhosis Previous liver biopsy confirming diagnosis. Apparently cryptogenic in etiology. GERD (gastroesophageal reflux disease) History of rectal polyps TIA (transient ischemic attack) Coronary artery disease Patient with history of premature coronary artery disease in his 40s. He is status post multivessel CABG. On several occasions he was taken to cardiac catheterization lab per Dr. Champion, and due to his complex disease he has at times required intervention at [facility]. Chronic pancreatitis Hyperlipidemia Hypertension Surgical History Surgical History History of repair of aneurysm of abdominal aorta using endovascular stent graft x3 Status post appendectomy, follow-up exam Status post coronary artery bypass graft 6 Hx of cardiac catheterization Last cardiac catheterization at this facility was May 31, [address] Champion. At that time it was noted that he had a patent stent to the circumflex. SVG to the OM and diagonal were apparently occluded. Juarez to LAD was patent. There was severe stenosis to a very large caliber vein graft to the RCA with 95 to 99% stenosis. This was deemed to be too high risk and he was transferred to [facility], where a total of 6 stents were placed. (patient stated that he has 9 stents now.) History of tonsillectomy History of cholecystectomy History of heart artery stent Six vessel Family History Family History Mother Family history of cardiovascular disease Diabetes mellitus Myocardial infarct Sibling Diabetes mellitus Pancreatitis Social History Social History Social History: The patient lives in [place] with his . He designates his as his surrogate decision maker and he wishes to be a full code. 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 His primary care provider is Dr. Loreta Padilla. He smoked 1 to 2 cigars a day but quit in 2008 after his bypass. No alcohol or drug abuse. Code status: Full code Smoking status: Former smoker Tobacco type: cigars Smoking end date: 06/24/09 Alcohol intake: never Substance use: never Substance use type: does not use Lack of Transportation: No Lack of Food: Never True Current Housing: I Have Housing Concerned About Future Housing: No Difficulty Paying Gas/Electric Bills: No Difficulty Paying for Meds: No Currently Unemployed: No Education: High School Diploma/GED Difficulty w/ Childcare or Family Care: No Living arrangements: with family Additional living arrangements comments: Lives with . Occupation/Education: retired Gender identity (if verbalized by the patient): Male Sexual Orientation (if Verbalized by the Patient): Straight or Heterosexual Spiritual care concerns: No Agree to blood products: Yes Anes - Eval Final PreProcedure Day of Procedure 08/29/25 14:10 Patient weight: normal Heart: regular rate and rhythm Lungs: decreased breath sounds Airway: Mallampati scale class III Neurological: alert and oriented Last oral intake: >/= 8 hours ASA classification: IV Emergent: no Anesthetic plan: proceed Anesthesia type and monitoring: general GIVS and standard monitoring Results Review: All pre-operative results and documents have been reviewed as part of the pre-operative evaluation. Informed Consent: The patient's anesthetic plan and its attendant risks and benefits were discussed with the patient/family/POA. Questions were solicited and answers provided to the satisfaction of the patient/family/POA.
[2025-08-29] MEDS: EPINEPHrine INJ 1 MG/10 ML SYRINGE 0.4 MG XX (15:12)
[2025-08-29] MEDS: HYDROcodone/acetaminophen (*CRX) 5-325 MG TABLET 1 TAB PO (15:58)
[2025-08-29 16:06] LABS: Hematocrit 23.3 % (42.0-52.0); Hemoglobin 7.8 g/dL (14.0-18.0)
[2025-08-29] MEDS: ACETAMINOPHEN 325 MG TABLET 650 MG PO (20:14)
[2025-08-29 22:12] LABS: Hematocrit 19.1 % (42.0-52.0); Hemoglobin 6.4 g/dL (14.0-18.0)
[2025-08-29] MEDS: SODIUM CHLORIDE 0.9% IV 250 ML 30 ML IV CONT (23:47)
[2025-08-30] VITALS (31 sets, daily range): BP systolic 85–112; BP diastolic 54–70; PULSE 61–118; RESP 12–21; TEMP 36.3–37.2; O2SAT 95–100
[2025-08-30] MEDS: PANTOPRAZOLE SODIUM IV 80 MG in SODIUM CHLORIDE 0.9% IV 500 ML 50 MG IV CONT ×2 (02:46→13:35)
[2025-08-30] MEDS: PIPERACILLIN/TAZOBACTAM SOD 3.375 GM in SODIUM CHLORIDE 0.9% IV 50 ML 100 ML IVPB (05:30)
[2025-08-30 06:07] LABS: Hematocrit 25.0 % (42.0-52.0); Hemoglobin 8.3 g/dL (14.0-18.0); Immature Platelet Fraction Pct 4.8 % (0.9-11.2); Mean Corpuscular HGB Conc 33.2 g/dl (32-36); Mean Corpuscular Hemoglobin 30.7 pg (26-34); Mean Corpuscular Volume 92.6 fl (80-100); Platelet Count Result 58 k/mm3 (150-375); Red Blood Count 2.70 M/mm3 (4.6-6.20); White Blood Count 13.6 K/mm3 (4.5-10.0)
[2025-08-30 06:36] LABS: Alanine Aminotransferase 59 U/L (6-50); Albumin Level 2.1 g/dL (3.5-5.1); Alkaline Phosphatase 63 U/L (38-126); Anion Gap 0 mmol/L (4-12); Aspartate Amino Transferase 48 U/L (17-59); Bilirubin,Total 0.9 mg/dL (0.2-1.3); Blood Urea Nitrogen 16 mg/dL (9-20); Calcium 7.5 mg/dL (8.4-10.2); Carbon Dioxide 22 mmol/L (22-30); Chloride 109 mmol/L (98-107); Estimated CRCL calculation 100 ml/min; Estimated Glomerular Filt Rate > 60; Glucose 101 mg/dL (65-110); Magnesium 1.8 mg/dL (1.6-2.3); Potassium 3.7 mmol/L (3.4-5.0); Sodium 131 mmol/L (137-145); Total Protein 4.6 g/dL (6.3-8.2)
[2025-08-30 07:40] LABS: Hematocrit 25.7 % (42.0-52.0); Hemoglobin 8.5 g/dL (14.0-18.0); Immature Platelet Fraction Pct 5.0 % (0.9-11.2); Mean Corpuscular HGB Conc 33.1 g/dl (32-36); Mean Corpuscular Hemoglobin 30.6 pg (26-34); Mean Corpuscular Volume 92.4 fl (80-100); Red Blood Count 2.78 M/mm3 (4.6-6.20); White Blood Count 13.3 K/mm3 (4.5-10.0)
[2025-08-30 07:42] LABS: Platelet Count Result 59 k/mm3 (150-375)
--- NOTE | 2025-08-30 07:43 | WPDANESPN ---
Anes - Prog Note Post-Op Date/Time: 08/30/25 07:43 Cardiovascular status: other Respiratory status: normal Airway patency: baseline Mental status: baseline Post-Op hydration status: other (anemic) Vital Signs: Last Vital Signs Temp 98.0 F 08/30/25 05:00 Pulse 83 08/30/25 06:00 Resp 16 08/30/25 06:00 BP 101/58 L 08/30/25 06:00 Pulse Ox 97 08/30/25 06:00 O2 Del Method Room Air 08/30/25 04:00 Pain Score (VAS): 0/10 I/O: Intake & Output 08/29/25 08/29/25 08/30/25 15:59 23:59 07:59 Intake Total 1746.3 340 1723 Output Total 606 092 6840 Balance 1046.3 -60 -77 Laboratory Tests 08/30/25 07:29 08/30/25 05:58 08/28/25 08/29/25 08/29/25 18:45 11:33 16:01 WBC RBC Hgb 7.7 L 7.8 L Hct 23.5 L 23.3 L MCV MCH MCHC RDW Plt Count MPV % Immature Plt Fraction PT INR APTT Fibrinogen D-Dimer Sodium Potassium Chloride Carbon Dioxide Anion Gap BUN Creatinine Estim Creat Clear Calc Estimated GFR Glucose Calcium Phosphorus Magnesium Total Bilirubin AST ALT Alkaline Phosphatase Ammonia < 9 L Total Protein Albumin Blood Type O Positive Antibody Screen Negative Crossmatch See Detail 08/29/25 08/30/25 08/30/25 21:54 05:58 07:29 WBC 13.6 H 13.3 H RBC 2.70 L 2.78 L Hgb 6.4 L* 8.3 L 8.5 L Hct 19.1 L* 25.0 L 25.7 L MCV 92.6 92.4 MCH 30.7 30.6 MCHC 33.2 33.1 RDW 15.6 H 15.8 H Plt Count 58 L 59 L MPV 10.6 H 10.8 H % Immature Plt Fraction 4.8 5.0 PT Pending INR Pending APTT Pending Fibrinogen Pending D-Dimer Pending Sodium 131 L Potassium 3.7 Chloride 109 H Carbon Dioxide 22 Anion Gap 0 L BUN 16 D Creatinine 0.62 L Estim Creat Clear Calc 100 Estimated GFR > 60 Glucose 101 Calcium 7.5 L Phosphorus 2.7 Magnesium 1.8 Pending Total Bilirubin 0.9 AST 48 ALT 59 H Alkaline Phosphatase 63 Ammonia Total Protein 4.6 L Albumin 2.1 L Blood Type Antibody Screen Crossmatch Post-procedural complaints: none Patient Feedback: Patient satisfied with anesthetic care.
[2025-08-30 07:53] LABS: Magnesium 1.8 mg/dL (1.6-2.3)
[2025-08-30 08:21] LABS: INR 1.3; Prothrombin Time 16.0 Seconds (11.1-14.7)
[2025-08-30 08:24] LABS: Partial Thromboplastin Time 29.9 Seconds (22.3-36.8)
[2025-08-30 08:25] LABS: Fibrinogen 207 mg/dl (215-510)
[2025-08-30] MEDS: HYDROcodone/acetaminophen (*CRX) 5-325 MG TABLET 1 TAB PO (09:03)
--- NOTE | 2025-08-30 09:40 | WPDINTPN ---
Progress Note: A&P Assessment and Plan (1) Acute upper GI bleed: Code(s): K92.2 - Gastrointestinal hemorrhage, unspecified Status: Acute Assessment and Plan: 08/28/2025: Patient presented to the ED with complains of generalized weakness, dark colored stools/melena. Acute upper GI bleed with anemia Patient is on dual antiplatelet therapy and has been recently on steroids for 2 weeks. History of melena also confirms along with fall of hemoglobin 08/28/2025: Transfused 2 units of packed RBCs 08/29/2025: EGD: Single ulcer 12 mm to 15 mm in the 2nd part of the duodenum. The ulcer was oozing blood. Lesion was cauterized with gold probe. Epinephrine was injected. Continue Protonix infusion Appreciate GI evaluation and recommendation 08/30: Overnight dropped hemoglobin to 6.4 and was transfused 2 more units of packed RBCs. Remains on Protonix infusion -platelets 58 this morning, will transfuse 1 unit of platelets Antiplatelet medications on hold Monitor H&H Will discuss with GI (2) Anemia: Code(s): D64.9 - Anemia, unspecified Status: Acute Assessment and Plan: Acute blood loss anemia. Management see above -08/30: has received a total of 4 units of packed RBCs since admission and will be receiving 1 unit of platelets (3) Coronary artery disease: Qualifiers: Coronary Disease-Associated Artery/Lesion type: unspecified vessel or lesion type [place] vs. transplanted heart: [place] heart Associated angina: angina presence unspecified Qualified Code(s): I25.10 - Atherosclerotic heart disease of [place] coronary artery without angina pectoris Code(s): I25.10 - Atherosclerotic heart disease of [place] coronary artery without angina pectoris Status: Acute Assessment and Plan: Patient has history of coronary disease status post coronary artery bypass grafting and multiple stent placement last of which was in 2019. His dual antiplatelet therapy are on hold at this time due to GI bleed (4) Chronic pancreatitis: Code(s): K86.1 - Other chronic pancreatitis Status: Acute Assessment and Plan: Denies any pain at this time (5) Cirrhosis, non-alcoholic: Code(s): K74.60 - Unspecified cirrhosis of liver Status: Acute Assessment and Plan: Patient has history of cirrhosis although does not appear to be decompensated at this time. His INR was 1.2 and lactic acid level has improve Albumin is 2.5 Ammonia <9 Plan DVT prophylaxis: SCD Stress ulcer prophylaxis: Protonix infusion Nutrition: Clear liquid Code Status: Total Critical Care Time: 32 minutes Due to a high probability of clinically significant, life threatening deterioration, the patient required my highest level of preparedness to intervene emergently and I personally spent this critical care time directly and personally managing the patient. This critical care time included obtaining a history; examining the patient; pulse oximetry; ordering and review of studies; arranging urgent treatment with development of a management plan; evaluation of patient's response to treatment; frequent reassessment; and discussions with other providers. It was exclusive of separately billable procedures and treating other patients and teaching time. Please see Assessment and Plan section and the rest of the note for further information on patient assessment and treatment This dictation may have been done utilizing a voice recognition system. Attempts have been made to correct errors. However, there may be uncorrected grammatical, spelling, and recognitions errors present. Subjective Date/time seen: 08/30/25 09:40 Interval history: Kashif Rhodes is a 64 year old male with past medical history of extensive cardiac history status post CABG and multiple stent placement, end-stage liver disease related to non alcoholic fatty liver Patient has had chronic back pain and was recently given 2 courses of prednisone. Patient is on dual antiplatelet therapy. Reason for consult: Anemia, GI bleed, melena, generalized weakness, lactic acidosis 08/28/2025: Transfused 2 units of packed RBCs 08/29/2025: EGD: Single ulcer 12 mm to 15 mm in the 2nd part of the duodenum. The ulcer was oozing blood. Lesion was cauterized with gold probe. Epinephrine was injected. Continue Protonix infusion 08/30/2025: Patient seen and examined the ICU, pleasant gentleman currently denies any chest pain, shortness of breath, abdominal pain, nausea, vomiting. Patient continues to have dark colored stools. Patient is afebrile, hemodynamically stable with borderline blood pressure. Overnight dropped his hemoglobin to 6.4, was transfused 2 more units of packed RBCs with improvement in Hb to 8.5 this morning. Platelet count this morning is 58. Urine output has been adequate Review of Systems Review of Systems: All systems reviewed & are unremarkable except as noted in HPI and below (HPI) Exam Narrative: General: Pt is alert awake and in NAD, pleasant gentleman Lungs/Chest: Trachea central Clear BS B/L, No crackles or wheezing. Cardiac: RRR. Normal S1 S2. No murmurs Circulation: Pedal pulses are intact and symmetrical. Abdomen: Normal bowel sounds.. Soft. NT. ND. Extremities: No clubbing, cyanosis or edema. Warm : Pollock in place Neurologic: Follows commands. Moves all 4 extremities PERRL AO x3 Skin: No Rash Objective Data Vital Signs Vital Signs: Vital Signs - 24 hr 08/29/25 10:00 08/29/25 10:00 08/29/25 11:00 Temperature Pulse Rate 102 H 99 107 H Respiratory Rate 18 18 Blood Pressure 93/70 L 105/75 Pulse Oximetry 99 99 Oxygen Delivery 08/29/25 12:00 08/29/25 12:00 08/29/25 12:00 Temperature 99.1 F Pulse Rate 122 H 133 H Respiratory Rate 18 Blood Pressure 105/78 Pulse Oximetry 100 Oxygen Delivery Room Air 08/29/25 13:00 08/29/25 14:05 08/29/25 15:10 Temperature 98.6 F Pulse Rate 108 H 100 123 H Respiratory Rate 16 20 24 H Blood Pressure 105/60 102/75 97/65 L Pulse Oximetry 100 100 99 Oxygen Delivery Room Air Room Air 08/29/25 15:20 08/29/25 15:30 08/29/25 16:00 Temperature 99.5 F Pulse Rate 124 H 108 H 121 H Respiratory Rate 19 21 H 18 Blood Pressure 87/75 L 114/78 116/74 Pulse Oximetry 99 100 100 Oxygen Delivery Room Air Room Air 08/29/25 16:00 08/29/25 16:00 08/29/25 17:00 Temperature Pulse Rate 109 H 109 H Respiratory Rate 18 Blood Pressure Pulse Oximetry Oxygen Delivery Room Air 08/29/25 18:00 08/29/25 18:00 08/29/25 19:00 Temperature Pulse Rate 104 H 108 H 98 Respiratory Rate 18 20 Blood Pressure 101/70 99/70 L Pulse Oximetry 100 98 Oxygen Delivery 08/29/25 20:00 08/29/25 20:00 08/29/25 20:00 Temperature 100.1 F H Pulse Rate 99 100 Respiratory Rate 16 Blood Pressure 92/62 L Pulse Oximetry 97 Oxygen Delivery Room Air 08/29/25 20:14 08/29/25 21:00 08/29/25 22:00 Temperature 100.1 F H Pulse Rate 94 96 Respiratory Rate 17 17 Blood Pressure 97/61 L 98/59 L Pulse Oximetry 99 97 Oxygen Delivery 08/29/25 22:00 08/29/25 23:00 08/29/25 23:00 Temperature 98.0 F Pulse Rate 96 96 Respiratory Rate 17 Blood Pressure 97/69 L Pulse Oximetry 97 Oxygen Delivery 08/29/25 23:00 08/29/25 23:47 08/30/25 00:00 Temperature 98.1 F Pulse Rate 86 Respiratory Rate 10 L Blood Pressure 83/62 L Pulse Oximetry 98 99 Oxygen Delivery Room Air Room Air 08/30/25 00:00 08/30/25 00:00 08/30/25 00:04 Temperature 98.1 F 98.0 F Pulse Rate 118 H 88 90 Respiratory Rate 16 19 Blood Pressure 88/63 L 93/61 L Pulse Oximetry 99 100 Oxygen Delivery 08/30/25 00:47 08/30/25 01:00 08/30/25 01:47 Temperature 98.3 F 98.1 F Pulse Rate 66 87 79 Respiratory Rate 18 21 H 17 Blood Pressure 90/55 L 96/65 L 95/60 L Pulse Oximetry 95 97 98 Oxygen Delivery 08/30/25 02:00 08/30/25 02:00 08/30/25 02:15 Temperature 97.9 F Pulse Rate 75 75 68 Respiratory Rate 16 17 Blood Pressure 91/62 L 85/61 L Pulse Oximetry 98 97 Oxygen Delivery 08/30/25 02:45 08/30/25 03:00 08/30/25 03:00 Temperature 97.9 F 98.0 F Pulse Rate 70 64 64 Respiratory Rate 15 17 17 Blood Pressure 88/55 L 89/65 L 89/65 L Pulse Oximetry 98 98 98 Oxygen Delivery 08/30/25 04:00 08/30/25 04:00 08/30/25 04:00 Temperature 98.3 F Pulse Rate 63 66 Respiratory Rate 18 Blood Pressure 89/70 L Pulse Oximetry 97 Oxygen Delivery Room Air 08/30/25 04:00 08/30/25 04:56 08/30/25 05:00 Temperature 98.0 F 98.0 F 98.0 F Pulse Rate 69 65 81 Respiratory Rate 16 15 16 Blood Pressure 89/70 L 94/64 L 96/64 L Pulse Oximetry 97 97 97 Oxygen Delivery 08/30/25 06:00 08/30/25 06:00 Temperature Pulse Rate 83 83 Respiratory Rate 16 Blood Pressure 101/58 L Pulse Oximetry 97 Oxygen Delivery Intake/Output Intake/Output: Intake & Output 08/27/25 08/28/25 08/29/25 08/30/25 23:59 23:59 23:59 23:59 Intake Total 3798.3 3241.7 1723 Output Total 2650 1800 Balance 3798.3 591.7 -77 Meds/Results Medications: Active Medications Generic Name Dose Route Start Last Admin Trade Name Freq PRN Reason Stop Dose Admin Acetaminophen 650 mg 08/28/25 18:24 08/29/25 20:14 Acetaminophen 325 Mg Tablet PO 650 mg Q4H PRN Administration Mild Pain (1-3) or Fever Hydrocodone Bitart/Acetaminophen 1 tab 08/28/25 18:24 08/30/25 09:03 Hydrocodone/Acetaminophen (*Crx) 5-325 Mg Tablet PO 1 tab Q4H PRN Administration Pain Rated 4-6 Piperacillin Sod/Tazobactam 50 mls @ 100 mls/hr 08/29/25 00:00 08/30/25 06:00 Sod 3.375 gm/ Sodium Chloride IVPB Infused Q6HR CRISTHIAN Infusion Pantoprazole Sodium 80 mg/ 500 mls @ 50 mls/hr 08/29/25 04:15 08/30/25 02:46 Sodium Chloride IV CONT 50 mls/hr .Q10H CRISTHIAN Administration Sodium Chloride 250 mls @ 30 mls/hr 08/30/25 07:17 Normal Saline Iv IV CONT 08/30/25 15:36 .Q8H20M STA Morphine Sulfate 2 mg 08/28/25 18:32 08/29/25 11:54 Morphine Sulfate (*Crx) 4 Mg/Ml Inj IV PUSH 2 mg Q2H PRN Administration Pain Rated 7-10 Ondansetron HCl 4 mg 08/28/25 18:24 Ondansetron Inj 4 Mg/2 Ml Vial IV PUSH Q4H PRN Nausea Perflutren Lipid Microsphere 0 ml 08/29/25 07:48 Perflutren Lipid Microspheres 1.5 Ml Vial Diluted To 10 Ml Total Volume IV PUSH 09/01/25 07:48 ONCE PRN adequate visualization Protocol Radiology Results: ITS Impressions Abdomen/Pelvis CT 08/28/25 17:31 IMPRESSION: 1. No acute intra-abdominal process. Incidental findings above Chest X-Ray 08/29/25 09:08 IMPRESSION: 1. Coarse reticular opacities at the bilateral lung bases corresponding to emphysema and usual interstitial pneumonia (UIP) pattern chronic interstitial lung disease on prior CT. Labs Labs: Laboratory Results - last 24 hr 08/28/25 08/29/25 08/29/25 18:45 11:33 16:01 WBC RBC Hgb 7.7 L 7.8 L Hct 23.5 L 23.3 L MCV MCH MCHC RDW Plt Count MPV % Immature Plt Fraction PT INR APTT Fibrinogen D-Dimer Sodium Potassium Chloride Carbon Dioxide Anion Gap BUN Creatinine Estim Creat Clear Calc Estimated GFR Glucose Calcium Phosphorus Magnesium Total Bilirubin AST ALT Alkaline Phosphatase Ammonia < 9 L Total Protein Albumin Blood Type O Positive Antibody Screen Negative Crossmatch See Detail 08/29/25 08/30/25 08/30/25 21:54 05:58 07:29 WBC 13.6 H 13.3 H RBC 2.70 L 2.78 L Hgb 6.4 L* 8.3 L 8.5 L Hct 19.1 L* 25.0 L 25.7 L MCV 92.6 92.4 MCH 30.7 30.6 MCHC 33.2 33.1 RDW 15.6 H 15.8 H Plt Count 58 L 59 L MPV 10.6 H 10.8 H % Immature Plt Fraction 4.8 5.0 PT 16.0 H INR 1.3 APTT 29.9 Fibrinogen 207 L D-Dimer 1.88 H Sodium 131 L Potassium 3.7 Chloride 109 H Carbon Dioxide 22 Anion Gap 0 L BUN 16 D Creatinine 0.62 L Estim Creat Clear Calc 100 Estimated GFR > 60 Glucose 101 Calcium 7.5 L Phosphorus 2.7 Magnesium 1.8 1.8 Total Bilirubin 0.9 AST 48 ALT 59 H Alkaline Phosphatase 63 Ammonia Total Protein 4.6 L Albumin 2.1 L Blood Type Antibody Screen Crossmatch Quality VTE Prophylaxis VTE prophylaxis: mechanical ordered
[2025-08-30] MEDS: SODIUM CHLORIDE 0.9% IV 250 ML 30 ML IV CONT (11:15)
--- NOTE | 2025-08-30 12:06 | WPDGIPROGNO ---
Progress Note: A&P Assessment and Plan (1) Acute upper GI bleed: Code(s): K92.2 - Gastrointestinal hemorrhage, unspecified Status: Acute Assessment and Plan: The patient had a severe duodenal ulcer bleeding, which was treated endoscopically with injection and bipolar cautery. He remains hemodynamically stable, however should still be under close observation. today's melena might be reflecting residual blood in the GI tract. his hemoglobin has remained stable and will continue monitoring every 6 hours. Will continue in ICU and with intravenous pantoprazole. (2) Acute duodenal ulcer with bleeding: Code(s): K26.0 - Acute duodenal ulcer with hemorrhage Status: Acute Subjective Date/time seen: 08/30/25 12:06 Interval history: Patient awake and alert, however has had about 4 melanotic stools this morning. Vital signs remained stable. Exam Narrative: Abdomen: soft, nontender, nondistended. Rest of the exam wit Objective Data Vital Signs Vital Signs: Vital Signs - 24 hr 08/29/25 13:00 08/29/25 14:05 08/29/25 15:10 Temperature 98.6 F Pulse Rate 108 H 100 123 H Respiratory Rate 16 20 24 H Blood Pressure 105/60 102/75 97/65 L Pulse Oximetry 100 100 99 Oxygen Delivery Room Air Room Air 08/29/25 15:20 08/29/25 15:30 08/29/25 16:00 Temperature 99.5 F Pulse Rate 124 H 108 H 121 H Respiratory Rate 19 21 H 18 Blood Pressure 87/75 L 114/78 116/74 Pulse Oximetry 99 100 100 Oxygen Delivery Room Air Room Air 08/29/25 16:00 08/29/25 16:00 08/29/25 17:00 Temperature Pulse Rate 109 H 109 H Respiratory Rate 18 Blood Pressure Pulse Oximetry Oxygen Delivery Room Air 08/29/25 18:00 08/29/25 18:00 08/29/25 19:00 Temperature Pulse Rate 104 H 108 H 98 Respiratory Rate 18 20 Blood Pressure 101/70 99/70 L Pulse Oximetry 100 98 Oxygen Delivery 08/29/25 20:00 08/29/25 20:00 08/29/25 20:00 Temperature 100.1 F H Pulse Rate 99 100 Respiratory Rate 16 Blood Pressure 92/62 L Pulse Oximetry 97 Oxygen Delivery Room Air 08/29/25 20:14 08/29/25 21:00 08/29/25 22:00 Temperature 100.1 F H Pulse Rate 94 96 Respiratory Rate 17 17 Blood Pressure 97/61 L 98/59 L Pulse Oximetry 99 97 Oxygen Delivery 08/29/25 22:00 08/29/25 23:00 08/29/25 23:00 Temperature 98.0 F Pulse Rate 96 96 Respiratory Rate 17 Blood Pressure 97/69 L Pulse Oximetry 97 Oxygen Delivery 08/29/25 23:00 08/29/25 23:47 08/30/25 00:00 Temperature 98.1 F Pulse Rate 86 Respiratory Rate 10 L Blood Pressure 83/62 L Pulse Oximetry 98 99 Oxygen Delivery Room Air Room Air 08/30/25 00:00 08/30/25 00:00 08/30/25 00:04 Temperature 98.1 F 98.0 F Pulse Rate 118 H 88 90 Respiratory Rate 16 19 Blood Pressure 88/63 L 93/61 L Pulse Oximetry 99 100 Oxygen Delivery 08/30/25 00:47 08/30/25 01:00 08/30/25 01:47 Temperature 98.3 F 98.1 F Pulse Rate 66 87 79 Respiratory Rate 18 21 H 17 Blood Pressure 90/55 L 96/65 L 95/60 L Pulse Oximetry 95 97 98 Oxygen Delivery 08/30/25 02:00 08/30/25 02:00 08/30/25 02:15 Temperature 97.9 F Pulse Rate 75 75 68 Respiratory Rate 16 17 Blood Pressure 91/62 L 85/61 L Pulse Oximetry 98 97 Oxygen Delivery 08/30/25 02:45 08/30/25 03:00 08/30/25 03:00 Temperature 97.9 F 98.0 F Pulse Rate 70 64 64 Respiratory Rate 15 17 17 Blood Pressure 88/55 L 89/65 L 89/65 L Pulse Oximetry 98 98 98 Oxygen Delivery 08/30/25 04:00 08/30/25 04:00 08/30/25 04:00 Temperature 98.3 F Pulse Rate 63 66 Respiratory Rate 18 Blood Pressure 89/70 L Pulse Oximetry 97 Oxygen Delivery Room Air 08/30/25 04:00 08/30/25 04:56 08/30/25 05:00 Temperature 98.0 F 98.0 F 98.0 F Pulse Rate 69 65 81 Respiratory Rate 16 15 16 Blood Pressure 89/70 L 94/64 L 96/64 L Pulse Oximetry 97 97 97 Oxygen Delivery 08/30/25 06:00 08/30/25 06:00 08/30/25 07:00 Temperature Pulse Rate 83 83 61 Respiratory Rate 16 14 Blood Pressure 101/58 L 90/69 L Pulse Oximetry 97 99 Oxygen Delivery 08/30/25 08:00 08/30/25 08:00 08/30/25 08:00 Temperature 98.5 F Pulse Rate 68 87 Respiratory Rate 12 Blood Pressure 102/68 Pulse Oximetry 99 Oxygen Delivery Room Air 08/30/25 09:00 08/30/25 10:00 08/30/25 10:00 Temperature Pulse Rate 68 76 62 Respiratory Rate 12 18 Blood Pressure 97/63 L 109/64 Pulse Oximetry 98 98 Oxygen Delivery 08/30/25 11:00 08/30/25 11:14 08/30/25 11:29 Temperature 98.1 F 98.0 F Pulse Rate 62 62 66 Respiratory Rate 16 14 14 Blood Pressure 100/66 95/63 L 103/70 Pulse Oximetry 98 97 99 Oxygen Delivery 08/30/25 11:55 Temperature 98.1 F Pulse Rate 74 Respiratory Rate 18 Blood Pressure 112/61 Pulse Oximetry 99 Oxygen Delivery Intake/Output Intake/Output: Intake & Output 08/27/25 08/28/25 08/29/25 08/30/25 23:59 23:59 23:59 23:59 Intake Total 3798.3 3241.7 2371 Output Total 2650 2400 Balance 3798.3 591.7 -29 Meds/Results Medications: Active Medications Generic Name Dose Route Start Last Admin Trade Name Freq PRN Reason Stop Dose Admin Acetaminophen 650 mg 08/28/25 18:24 08/29/25 20:14 Acetaminophen 325 Mg Tablet PO 650 mg Q4H PRN Administration Mild Pain (1-3) or Fever Pantoprazole Sodium 80 mg/ 500 mls @ 50 mls/hr 08/29/25 04:15 08/30/25 02:46 Sodium Chloride IV CONT 50 mls/hr .Q10H CRISTHIAN Administration Sodium Chloride 250 mls @ 30 mls/hr 08/30/25 07:17 Normal Saline Iv IV CONT 08/30/25 15:36 .Q8H20M STA Ondansetron HCl 4 mg 08/28/25 18:24 Ondansetron Inj 4 Mg/2 Ml Vial IV PUSH Q4H PRN Nausea Perflutren Lipid Microsphere 0 ml 08/29/25 07:48 Perflutren Lipid Microspheres 1.5 Ml Vial Diluted To 10 Ml Total Volume IV PUSH 09/01/25 07:48 ONCE PRN adequate visualization Protocol Radiology Results: ITS Impressions Abdomen/Pelvis CT 08/28/25 17:31 IMPRESSION: 1. No acute intra-abdominal process. Incidental findings above Chest X-Ray 08/29/25 09:08 IMPRESSION: 1. Coarse reticular opacities at the bilateral lung bases corresponding to emphysema and usual interstitial pneumonia (UIP) pattern chronic interstitial lung disease on prior CT. Labs Labs: Laboratory Results - last 24 hr 08/28/25 08/29/25 08/29/25 18:45 16:01 21:54 WBC RBC Hgb 7.8 L 6.4 L* Hct 23.3 L 19.1 L* MCV MCH MCHC RDW Plt Count MPV % Immature Plt Fraction PT INR APTT Fibrinogen D-Dimer Sodium Potassium Chloride Carbon Dioxide Anion Gap BUN Creatinine Estim Creat Clear Calc Estimated GFR Glucose Calcium Phosphorus Magnesium Total Bilirubin AST ALT Alkaline Phosphatase Total Protein Albumin Blood Type O Positive Antibody Screen Negative Crossmatch See Detail 08/30/25 08/30/25 05:58 07:29 WBC 13.6 H 13.3 H RBC 2.70 L 2.78 L Hgb 8.3 L 8.5 L Hct 25.0 L 25.7 L MCV 92.6 92.4 MCH 30.7 30.6 MCHC 33.2 33.1 RDW 15.6 H 15.8 H Plt Count 58 L 59 L MPV 10.6 H 10.8 H % Immature Plt Fraction 4.8 5.0 PT 16.0 H INR 1.3 APTT 29.9 Fibrinogen 207 L D-Dimer 1.88 H Sodium 131 L Potassium 3.7 Chloride 109 H Carbon Dioxide 22 Anion Gap 0 L BUN 16 D Creatinine 0.62 L Estim Creat Clear Calc 100 Estimated GFR > 60 Glucose 101 Calcium 7.5 L Phosphorus 2.7 Magnesium 1.8 1.8 Total Bilirubin 0.9 AST 48 ALT 59 H Alkaline Phosphatase 63 Total Protein 4.6 L Albumin 2.1 L Blood Type Antibody Screen Crossmatch
[2025-08-30 13:05] LABS: Hematocrit 23.6 % (42.0-52.0); Hemoglobin 8.0 g/dL (14.0-18.0); Mean Corpuscular HGB Conc 33.9 g/dl (32-36); Mean Corpuscular Hemoglobin 31.7 pg (26-34); Mean Corpuscular Volume 93.7 fl (80-100); Platelet Count Result 100 k/mm3 (150-375); Red Blood Count 2.52 M/mm3 (4.6-6.20); White Blood Count 12.5 K/mm3 (4.5-10.0)
--- NOTE | 2025-08-30 16:34 | PC.NURSE ---
This patient, Kashif Rhodes, was received from [ICU-2 ] on 08/30/25 at 1630. Patient/family oriented to unit policies and routines. Report received from SHONNA Wang @ 587. Family at bedside. Protonix gtt received with pt
--- NOTE | 2025-08-30 16:37 | PC.NURSE ---
This patient, Kashif Rhodes, was transferred to [[facility]] on 08/30/25 at 1637. Personal belongings sent with patient. Report given to [Shasha]. Appropriate documentation sent with patient.
[2025-08-30 20:07] LABS: Hematocrit 24.1 % (42.0-52.0); Hemoglobin 8.2 g/dL (14.0-18.0); Mean Corpuscular HGB Conc 34.0 g/dl (32-36); Mean Corpuscular Hemoglobin 31.5 pg (26-34); Mean Corpuscular Volume 92.7 fl (80-100); Platelet Count Result 102 k/mm3 (150-375); Red Blood Count 2.60 M/mm3 (4.6-6.20); White Blood Count 10.6 K/mm3 (4.5-10.0)
[2025-08-31] VITALS (11 sets, daily range): BP systolic 107–125; BP diastolic 55–80; PULSE 61–101; RESP 16–20; TEMP 36.6–37.1; O2SAT 98–99
[2025-08-31] MEDS: PANTOPRAZOLE SODIUM IV 80 MG in SODIUM CHLORIDE 0.9% IV 500 ML 50 MG IV CONT (00:10)
[2025-08-31 04:22] LABS: Hematocrit 24.2 % (42.0-52.0); Hemoglobin 8.0 g/dL (14.0-18.0); Immature Granulocyte Percent A 5.1 % (0-0.5); Immature Platelet Fraction Pct 4.2 % (0.9-11.2); Lymphocytes Absolute Auto 1.62 K/mm3 (0.9-3.2); Mean Corpuscular HGB Conc 33.1 g/dl (32-36); Mean Corpuscular Hemoglobin 31.3 pg (26-34); Mean Corpuscular Volume 94.5 fl (80-100); Nucleated Red Blood Cells Absolute Auto 0.020 K/mm3 (0.0-0.012); Nucleated Red Blood Cells Perc 0.2 % (0.0-0.2); Platelet Count Result 101 k/mm3 (150-375); Red Blood Count 2.56 M/mm3 (4.6-6.20); White Blood Count 8.6 K/mm3 (4.5-10.0)
[2025-08-31 04:36] LABS: Alanine Aminotransferase 57 U/L (6-50); Albumin Level 2.3 g/dL (3.5-5.1); Alkaline Phosphatase 79 U/L (38-126); Anion Gap 2 mmol/L (4-12); Aspartate Amino Transferase 56 U/L (17-59); Bilirubin,Total 0.6 mg/dL (0.2-1.3); Blood Urea Nitrogen 6 mg/dL (9-20); Calcium 7.6 mg/dL (8.4-10.2); Carbon Dioxide 23 mmol/L (22-30); Chloride 109 mmol/L (98-107); Estimated CRCL calculation 113 ml/min; Estimated Glomerular Filt Rate > 60; Glucose 105 mg/dL (65-110); Magnesium 1.9 mg/dL (1.6-2.3); Potassium 3.7 mmol/L (3.4-5.0); Sodium 134 mmol/L (137-145); Total Protein 5.1 g/dL (6.3-8.2)
[2025-08-31 04:52] LABS: Anisocytosis 1+; Hypochromasia 1+; Schistocytes None Seen
[2025-08-31] MEDS: PANTOPRAZOLE 40 MG TABLET PO ×2 (08:28→21:14)
--- NOTE | 2025-08-31 09:21 | P.PNCA_ITS ---
Progress Note: A&P Assessment and Plan (1) Coronary artery disease: Qualifiers: Coronary Disease-Associated Artery/Lesion type: unspecified vessel or lesion type [place] vs. transplanted heart: [place] heart Associated angina: angina presence unspecified Qualified Code(s): I25.10 - Atherosclerotic heart disease of [place] coronary artery without angina pectoris Code(s): I25.10 - Atherosclerotic heart disease of [place] coronary artery without angina pectoris Status: Acute Assessment and Plan: Complex coronary artery disease with history of CABG and subsequent PCI to the LCX with laser angioplasty and stenting, PCI to the RCA. Because of this complex history he has remained on DAPT. In the setting of acute GI bleed his ASA and Brilinta are appropriately on hold. GI completed scope and noted to have bleeding duodenal ulcer s/p cautery. His H&H remain stable and would await GI recommendations on when to begin resume antiplatelet therapy. Per patient has been cleared to resume at dc. (2) Acute upper GI bleed: Code(s): K92.2 - Gastrointestinal hemorrhage, unspecified Status: Acute Assessment and Plan: GI following-found to have bleeding duodonal ulcer Management as per GI Subjective Date/time seen: 08/31/25 09:21 Interval history: Patient sitting up in bed and feeling well. Denies any chest pain or pressure No reports of shortness of breath Denies any bloody/dark stools Review of Systems Review of Systems: All systems reviewed & are unremarkable except as noted in HPI and below Exam Narrative: General: A&O x 3. NAD Neck: no JVD Respiratory: lungs CTAB CV: S1, S2. No murmurs, rubs or gallops GI: abd soft non-tender Ext: no edema Objective Data Vital Signs Vital Signs: Vital Signs - 24 hr 08/30/25 10:00 08/30/25 10:00 08/30/25 11:00 Temperature Pulse Rate 76 62 62 Respiratory Rate 18 16 Blood Pressure 109/64 100/66 Pulse Oximetry 98 98 Oxygen Delivery 08/30/25 11:14 08/30/25 11:29 08/30/25 11:55 Temperature 36.7 C 36.7 C 36.7 C Pulse Rate 62 66 74 Respiratory Rate 14 14 18 Blood Pressure 95/63 L 103/70 112/61 Pulse Oximetry 97 99 99 Oxygen Delivery 08/30/25 12:00 08/30/25 12:00 08/30/25 12:00 Temperature 36.7 C Pulse Rate 74 75 Respiratory Rate 19 Blood Pressure 112/61 Pulse Oximetry 99 Oxygen Delivery Room Air 08/30/25 13:00 08/30/25 14:00 08/30/25 14:00 Temperature Pulse Rate 67 64 64 Respiratory Rate 16 18 Blood Pressure 106/65 91/61 L Pulse Oximetry 100 99 Oxygen Delivery 08/30/25 16:00 08/30/25 16:00 08/30/25 16:00 Temperature 36.3 C L Pulse Rate 61 63 Respiratory Rate 16 Blood Pressure 110/69 Pulse Oximetry 100 Oxygen Delivery Room Air 08/30/25 17:10 08/30/25 18:00 08/30/25 20:00 Temperature Pulse Rate 81 66 64 Respiratory Rate 16 Blood Pressure Pulse Oximetry 97 Oxygen Delivery Room Air 08/30/25 20:24 08/30/25 22:00 08/30/25 23:32 Temperature 37.1 C 37.2 C Pulse Rate 70 65 83 Respiratory Rate 14 14 Blood Pressure 111/60 106/54 L Pulse Oximetry 100 98 Oxygen Delivery 08/31/25 00:00 08/31/25 02:00 08/31/25 04:00 Temperature Pulse Rate 73 86 61 Respiratory Rate Blood Pressure Pulse Oximetry Oxygen Delivery 08/31/25 04:19 08/31/25 06:00 08/31/25 08:00 Temperature 36.7 C 36.6 C Pulse Rate 69 81 81 Respiratory Rate 16 18 Blood Pressure 107/55 L 125/64 Pulse Oximetry 99 99 Oxygen Delivery Intake/Output Intake/Output: Intake & Output 08/28/25 08/29/25 08/30/25 08/31/25 23:59 23:59 23:59 23:59 Intake Total 3798.3 3241.7 4501 1172 Output Total 2650 4800 1200 Balance 3798.3 591.7 -299 -28 Meds/Results Medications: Active Medications Generic Name Dose Route Start Last Admin Trade Name Freq PRN Reason Stop Dose Admin Acetaminophen 650 mg 08/28/25 18:24 08/29/25 20:14 Acetaminophen 325 Mg Tablet PO 650 mg Q4H PRN Administration Mild Pain (1-3) or Fever Ondansetron HCl 4 mg 08/28/25 18:24 Ondansetron Inj 4 Mg/2 Ml Vial IV PUSH Q4H PRN Nausea Pantoprazole Sodium 40 mg 08/31/25 09:00 08/31/25 08:28 Pantoprazole 40 Mg Tablet PO 40 mg Q12HR CRISTHIAN Administration Perflutren Lipid Microsphere 0 ml 08/29/25 07:48 Perflutren Lipid Microspheres 1.5 Ml Vial Diluted To 10 Ml Total Volume IV PUSH 09/01/25 07:48 ONCE PRN adequate visualization Protocol Radiology Results: ITS Impressions Abdomen/Pelvis CT 08/28/25 17:31 IMPRESSION: 1. No acute intra-abdominal process. Incidental findings above Chest X-Ray 08/29/25 09:08 IMPRESSION: 1. Coarse reticular opacities at the bilateral lung bases corresponding to emphysema and usual interstitial pneumonia (UIP) pattern chronic interstitial lung disease on prior CT. Labs Labs: Laboratory Results - last 24 hr 08/28/25 08/30/25 08/30/25 18:45 12:58 20:02 WBC 12.5 H 10.6 H RBC 2.52 L 2.60 L Hgb 8.0 L 8.2 L Hct 23.6 L 24.1 L MCV 93.7 92.7 MCH 31.7 31.5 MCHC 33.9 34.0 RDW 16.1 H 16.6 H Plt Count 100 L D 102 L MPV 10.4 10.4 Immature Gran % (Auto) Neut % (Auto) Lymph % (Auto) [place] % (Auto) Eos % (Auto) Baso % (Auto) Lymph # (Auto) [place] # (Auto) Eos # (Auto) Baso # (Auto) Abs Immat Gran (auto) Absolute Neuts (auto) Absolute Nucleated RBC Band Neutrophils % Nucleated RBC % Platelet Estimate % Immature Plt Fraction Hypochromasia Anisocytosis Schistocytes Sodium Potassium Chloride Carbon Dioxide Anion Gap BUN Creatinine Estim Creat Clear Calc Estimated GFR Glucose Calcium Phosphorus Magnesium Total Bilirubin AST ALT Alkaline Phosphatase Total Protein Albumin Blood Type O Positive Antibody Screen Negative Crossmatch See Detail 08/31/25 03:58 WBC 8.6 RBC 2.56 L Hgb 8.0 L Hct 24.2 L MCV 94.5 MCH 31.3 MCHC 33.1 RDW 16.3 H Plt Count 101 L MPV 10.8 H Immature Gran % (Auto) 5.1 H Neut % (Auto) 63.9 Lymph % (Auto) 18.8 [place] % (Auto) 9.5 H Eos % (Auto) 2.2 Baso % (Auto) 0.5 Lymph # (Auto) 1.62 [place] # (Auto) 0.8 H Eos # (Auto) 0.2 Baso # (Auto) 0.0 Abs Immat Gran (auto) 0.44 H Absolute Neuts (auto) 5.5 Absolute Nucleated RBC 0.020 H Band Neutrophils % Not Reportable Nucleated RBC % 0.2 Platelet Estimate Decreased % Immature Plt Fraction 4.2 Hypochromasia 1+ Anisocytosis 1+ Schistocytes None seen Sodium 134 L Potassium 3.7 Chloride 109 H Carbon Dioxide 23 Anion Gap 2 L BUN 6 L D Creatinine 0.55 L Estim Creat Clear Calc 113 Estimated GFR > 60 Glucose 105 Calcium 7.6 L Phosphorus 2.5 Magnesium 1.9 Total Bilirubin 0.6 AST 56 ALT 57 H Alkaline Phosphatase 79 Total Protein 5.1 L Albumin 2.3 L Blood Type Antibody Screen Crossmatch
--- NOTE | 2025-08-31 11:43 | P.PNGI_ITS ---
Progress Note: A&P Assessment and Plan (1) Acute duodenal ulcer with bleeding: Code(s): K26.0 - Acute duodenal ulcer with hemorrhage Status: Acute Assessment and Plan: The patient did not show clinical or laboratory evidence of further GI bleeding, his hemoglobin remained stable at 8.0. Pantoprazole changed to oral, 40 mg b.i.d. and advance diet. If he remains stable will discharge tomorrow. Subjective Date/time seen: 08/31/25 11:43 Interval history: patient's clinical status remains stable, no further melena episodes during the night. Objective Data Vital Signs Vital Signs: Vital Signs - 24 hr 08/30/25 11:55 08/30/25 12:00 08/30/25 12:00 Temperature 98.1 F 98.1 F Pulse Rate 74 74 Respiratory Rate 18 19 Blood Pressure 112/61 112/61 Pulse Oximetry 99 99 Oxygen Delivery Room Air 08/30/25 12:00 08/30/25 13:00 08/30/25 14:00 Temperature Pulse Rate 75 67 64 Respiratory Rate 16 18 Blood Pressure 106/65 91/61 L Pulse Oximetry 100 99 Oxygen Delivery 08/30/25 14:00 08/30/25 16:00 08/30/25 16:00 Temperature 97.4 F L Pulse Rate 64 61 Respiratory Rate 16 Blood Pressure 110/69 Pulse Oximetry 100 Oxygen Delivery Room Air 08/30/25 16:00 08/30/25 17:10 08/30/25 18:00 Temperature Pulse Rate 63 81 66 Respiratory Rate 16 Blood Pressure Pulse Oximetry 97 Oxygen Delivery Room Air 08/30/25 20:00 08/30/25 20:24 08/30/25 22:00 Temperature 98.8 F Pulse Rate 64 70 65 Respiratory Rate 14 Blood Pressure 111/60 Pulse Oximetry 100 Oxygen Delivery 08/30/25 23:32 08/31/25 00:00 08/31/25 02:00 Temperature 98.9 F Pulse Rate 83 73 86 Respiratory Rate 14 Blood Pressure 106/54 L Pulse Oximetry 98 Oxygen Delivery 08/31/25 04:00 08/31/25 04:19 08/31/25 06:00 Temperature 98.0 F Pulse Rate 61 69 81 Respiratory Rate 16 Blood Pressure 107/55 L Pulse Oximetry 99 Oxygen Delivery 08/31/25 08:00 08/31/25 08:00 08/31/25 08:00 Temperature 97.8 F Pulse Rate 81 81 71 Respiratory Rate 18 18 Blood Pressure 125/64 Pulse Oximetry 99 99 Oxygen Delivery Room Air 08/31/25 10:00 Temperature Pulse Rate 80 Respiratory Rate Blood Pressure Pulse Oximetry Oxygen Delivery Intake/Output Intake/Output: Intake & Output 08/28/25 08/29/25 08/30/25 08/31/25 23:59 23:59 23:59 23:59 Intake Total 3798.3 3241.7 4501 1172 Output Total 2650 4800 1200 Balance 3798.3 591.7 -299 -28 Meds/Results Medications: Active Medications Generic Name Dose Route Start Last Admin Trade Name Freq PRN Reason Stop Dose Admin Acetaminophen 650 mg 08/28/25 18:24 08/29/25 20:14 Acetaminophen 325 Mg Tablet PO 650 mg Q4H PRN Administration Mild Pain (1-3) or Fever Ondansetron HCl 4 mg 08/28/25 18:24 Ondansetron Inj 4 Mg/2 Ml Vial IV PUSH Q4H PRN Nausea Pantoprazole Sodium 40 mg 08/31/25 09:00 08/31/25 08:28 Pantoprazole 40 Mg Tablet PO 40 mg Q12HR CRISTHIAN Administration Perflutren Lipid Microsphere 0 ml 08/29/25 07:48 Perflutren Lipid Microspheres 1.5 Ml Vial Diluted To 10 Ml Total Volume IV PUSH 09/01/25 07:48 ONCE PRN adequate visualization Protocol Radiology Results: ITS Impressions Abdomen/Pelvis CT 08/28/25 17:31 IMPRESSION: 1. No acute intra-abdominal process. Incidental findings above Chest X-Ray 08/29/25 09:08 IMPRESSION: 1. Coarse reticular opacities at the bilateral lung bases corresponding to emphysema and usual interstitial pneumonia (UIP) pattern chronic interstitial lung disease on prior CT. Labs Labs: Laboratory Results - last 24 hr 08/30/25 08/30/25 08/31/25 12:58 20:02 03:58 WBC 12.5 H 10.6 H 8.6 RBC 2.52 L 2.60 L 2.56 L Hgb 8.0 L 8.2 L 8.0 L Hct 23.6 L 24.1 L 24.2 L MCV 93.7 92.7 94.5 MCH 31.7 31.5 31.3 MCHC 33.9 34.0 33.1 RDW 16.1 H 16.6 H 16.3 H Plt Count 100 L D 102 L 101 L MPV 10.4 10.4 10.8 H Immature Gran % (Auto) 5.1 H Neut % (Auto) 63.9 Lymph % (Auto) 18.8 [place] % (Auto) 9.5 H Eos % (Auto) 2.2 Baso % (Auto) 0.5 Lymph # (Auto) 1.62 [place] # (Auto) 0.8 H Eos # (Auto) 0.2 Baso # (Auto) 0.0 Abs Immat Gran (auto) 0.44 H Absolute Neuts (auto) 5.5 Absolute Nucleated RBC 0.020 H Band Neutrophils % Not Reportable Nucleated RBC % 0.2 Platelet Estimate Decreased % Immature Plt Fraction 4.2 Hypochromasia 1+ Anisocytosis 1+ Schistocytes None seen Sodium 134 L Potassium 3.7 Chloride 109 H Carbon Dioxide 23 Anion Gap 2 L BUN 6 L D Creatinine 0.55 L Estim Creat Clear Calc 113 Estimated GFR > 60 Glucose 105 Calcium 7.6 L Phosphorus 2.5 Magnesium 1.9 Total Bilirubin 0.6 AST 56 ALT 57 H Alkaline Phosphatase 79 Total Protein 5.1 L Albumin 2.3 L
--- NOTE | 2025-08-31 18:44 | PM.IMPN ---
Progress Note: A&P Assessment and Plan (1) Acute upper GI bleed: Code(s): K92.2 - Gastrointestinal hemorrhage, unspecified Status: Acute Assessment and Plan: -GI has been consulted. -I spoke with the child and adolescent psychiatrist who is agreeable to admit the patient to ICU. [employer] consult has been placed. -I did discuss his code status the patient stated he is a full code. -2 units of packed red blood cell has been ordered. -in the event that there is a delay in obtaining blood for the patient we will give him 2 units of platelets. -the patient has been on Brilinta and aspirin and recently was prescribed prednisone. Patient stated he has not been taking the prednisone with meals. -the patient stated he noted stools that were darker than normal but he suspected this was from eating blueberries. However he was guaiac-positive in the emergency room. -the patient is tachy with heart rate in the low 1 100s. Blood pressure soft 107/68. -I did consult Cardiology as the patient has an extensive cardiac history and is on Brilinta and aspirin. The patient stated that the last time that he helps his Brilinta and aspirin his stents occluded. I explained to him that I could not give him these medications at this time as his blood counts were dangerously low. -continue with Protonix drip. -keep the patient NPO at this time -patient stated that he did vomit but did not notice any blood in his emesis. He denies any noticeable bleeding from his rectum but did notice that his stools were darker. -Abdomen/Pelvis CT 08/28/25 17:31 IMPRESSION: 1. No acute intra-abdominal process. Incidental findings ab (2) Coronary artery disease: Qualifiers: Coronary Disease-Associated Artery/Lesion type: unspecified vessel or lesion type [place] vs. transplanted heart: [place] heart Associated angina: angina presence unspecified Qualified Code(s): I25.10 - Atherosclerotic heart disease of [place] coronary artery without angina pectoris Code(s): I25.10 - Atherosclerotic heart disease of [place] coronary artery without angina pectoris Status: Acute Assessment and Plan: -according to the patient he has had 9 cardiac stents. However reviewing the records suggest that he only had 6. The patient also stated that he has had a 6 vessel CABG. -the patient has been on aspirin and Brilinta which is currently on hold. -I did consult Cardiology as the patient follows with Dr. Romero and there was some concerns about the stents clotting off if he is off Brilinta and aspirin for appear to time. -the patient is on isosorbide however his blood pressure soft at this time and we are unable to give this to him. -she is also on metoprolol however his blood pressure is low at this time so that with placed on hold. (3) Cirrhosis, non-alcoholic: Code(s): K74.60 - Unspecified cirrhosis of liver Status: Acute Assessment and Plan: -MELD score 22 with a mortality rate of 19.6 -CT of the abdomen shows cirrhotic changes of the liver. Portal vein patent. No intrahepatic biliary duct dilatation. -non alcoholic cirrhosis of liver. -patient's AST 63, ALT 103 and alkaline phosphatase 71. Patient's AST is at baseline. (4) Lumbar back pain: Code(s): M54.50 - Low back pain, unspecified Status: Acute Assessment and Plan: -continue with pain medication if blood pressure allows. -holding prednisone. (5) Hyperlipidemia: Code(s): E78.5 - Hyperlipidemia, unspecified Status: Acute Assessment and Plan: -omega-3 daily. He is NPO at this time. -check lipid profile (6) Leukocytosis: Code(s): D72.829 - Elevated white blood cell count, unspecified Status: Acute Assessment and Plan: -patient's lactic level went from 5.2-3.3 after fluids. -blood cultures are pending. -this could be stress-induced or steroid induced. -daily CBCs. -the patient was started on Zosyn pending cultures. -lactic was elevated but responsive to fluids. -continue to check daily lactic acid levels -ordered chest x-ray. -CT of the abdomen shows nothing acute. -UA was negative. -continue with IV hydration (7) Chronic pancreatitis: Code(s): K86.1 - Other chronic pancreatitis Status: Acute Assessment and Plan: -monitor lipase levels. -the patient has been on Pancrease which is currently on hold due to his NPO status. Plan 64 y/o male presented with GI bleed, was seen by the GI and EGD and showed patient has a single duodenum ulcer ranging 12mm to 15mm which cauterized and since then his Hgb been stable and there is no further bleeding, patient also has significant cardiac history and had been taking DAPT with Brilinta and aspirin which are on hold and gandy dancer is in agreement, patient remains clinically stable and if there are further bleeding, will discharge home tomorrow. Subjective Date/time seen: 08/31/25 18:44 Interval history: Nausea and vomiting without diarrhea H&P-Narrative: This is a 64-year-old male patient who has an extensive cardiac history with end-stage liver disease related to non alcoholic fatty liver. The patient recently was complaining of some lower back pain and was given prednisone. The patient stated he has not been taking the prednisone with food. The patient stated that he vomited last night and today after eating some [place] food. He denies seeing any blood in his vomit or stool. He did notice that his stools were darker but he thought it was because he had been eating varies. He denies any sick contacts. Abdominal/pelvis CT was read as no acute intra-abdominal process. Incidental findings. He has cirrhotic changes of the liver. Portal vein patent. No intrahepatic biliary duct dilatation. His white count initially was 42.2 and is now 25.8. Initial H&H was 9.6 and 29.6. However after 3 L of fluid his H&H dropped to 6.7 and 20.6. On 08/10/2025 he had a normal H&H. Platelets were initially 149 and now 95. His baseline is around 149. The patient has been on Brilinta and aspirin with a recent prescription of prednisone. His sodium levels 134 with potassium 5.5. His lactic was 5.2 and came down to 3.3 with 3 L of fluid. The patient is very pale and weak. His heart rate is in the low 100s. Blood pressure 107/64 this time. Pulse ox is 95%. GI has been consulted The child and adolescent psychiatrist has been notified and the patient will be admitted to ICU observation status on the date of service of 08/28/2025. 64 y/o male presented with GI bleed, was seen by the GI and EGD and showed patient has a single duodenum ulcer ranging 12mm to 15mm which cauterized and since then his Hgb been stable and there is no further bleeding, patient also has significant cardiac history and had been taking DAPT with Brilinta and aspirin which are on hold and gandy dancer is in agreement, patient remains clinically stable and if there are further bleeding, will discharge home tomorrow. Review of Systems Review of Systems: Twelve point review of system was completed. Pertinent positive and negative findings per HPI. Patient is feeling well without any positive review system today. Constitutional: Constitutional: Reports as per HPI and Reports no additional constitutional complaints Exam Narrative: Patient is comfortable, NAD HEENT: eyes are clear and none icteric LUNGS:CTA HEART: RR S1S2 ABD: BS+, Soft and nontender Lower extremities: no edema SKIN: nonjaundiced Neuro: grossly intact. Objective Data Vital Signs Vital Signs: Vital Signs - 24 hr 08/30/25 20:00 08/30/25 20:24 08/30/25 22:00 Temperature 37.1 C Pulse Rate 64 70 65 Respiratory Rate 14 Blood Pressure 111/60 Pulse Oximetry 100 Oxygen Delivery 08/30/25 23:32 08/31/25 00:00 08/31/25 02:00 Temperature 37.2 C Pulse Rate 83 73 86 Respiratory Rate 14 Blood Pressure 106/54 L Pulse Oximetry 98 Oxygen Delivery 08/31/25 04:00 08/31/25 04:19 08/31/25 06:00 Temperature 36.7 C Pulse Rate 61 69 81 Respiratory Rate 16 Blood Pressure 107/55 L Pulse Oximetry 99 Oxygen Delivery 08/31/25 08:00 08/31/25 08:00 08/31/25 08:00 Temperature 36.6 C Pulse Rate 81 81 71 Respiratory Rate 18 18 Blood Pressure 125/64 Pulse Oximetry 99 99 Oxygen Delivery Room Air 08/31/25 10:00 08/31/25 12:00 08/31/25 12:00 Temperature 37.1 C Pulse Rate 80 86 86 Respiratory Rate 20 20 Blood Pressure 125/80 Pulse Oximetry 98 98 Oxygen Delivery Room Air 08/31/25 12:00 08/31/25 16:00 Temperature 36.8 C Pulse Rate 92 101 H Respiratory Rate 18 Blood Pressure 116/65 Pulse Oximetry 99 Oxygen Delivery Intake/Output Intake/Output: Intake & Output 08/28/25 08/29/25 08/30/25 08/31/25 23:59 23:59 23:59 23:59 Intake Total 3798.3 3241.7 4501 2812 Output Total 2650 4800 1550 Balance 3798.3 591.7 -299 1262 Meds/Results Medications: Active Medications Generic Name Dose Route Start Last Admin Trade Name Wallaceq PRN Reason Stop Dose Admin Acetaminophen 650 mg 08/28/25 18:24 08/29/25 20:14 Acetaminophen 325 Mg Tablet PO 650 mg Q4H PRN Administration Mild Pain (1-3) or Fever Ondansetron HCl 4 mg 08/28/25 18:24 Ondansetron Inj 4 Mg/2 Ml Vial IV PUSH Q4H PRN Nausea Pantoprazole Sodium 40 mg 08/31/25 09:00 08/31/25 08:28 Pantoprazole 40 Mg Tablet PO 40 mg Q12HR CRISTHIAN Administration Perflutren Lipid Microsphere 0 ml 08/29/25 07:48 Perflutren Lipid Microspheres 1.5 Ml Vial Diluted To 10 Ml Total Volume IV PUSH 09/01/25 07:48 ONCE PRN adequate visualization Protocol Radiology Results: ITS Impressions Abdomen/Pelvis CT 08/28/25 17:31 IMPRESSION: 1. No acute intra-abdominal process. Incidental findings above Chest X-Ray 08/29/25 09:08 IMPRESSION: 1. Coarse reticular opacities at the bilateral lung bases corresponding to emphysema and usual interstitial pneumonia (UIP) pattern chronic interstitial lung disease on prior CT. Labs Labs: Laboratory Results - last 24 hr 08/30/25 08/31/25 20:02 03:58 WBC 10.6 H 8.6 RBC 2.60 L 2.56 L Hgb 8.2 L 8.0 L Hct 24.1 L 24.2 L MCV 92.7 94.5 MCH 31.5 31.3 MCHC 34.0 33.1 RDW 16.6 H 16.3 H Plt Count 102 L 101 L MPV 10.4 10.8 H Immature Gran % (Auto) 5.1 H Neut % (Auto) 63.9 Lymph % (Auto) 18.8 [place] % (Auto) 9.5 H Eos % (Auto) 2.2 Baso % (Auto) 0.5 Lymph # (Auto) 1.62 [place] # (Auto) 0.8 H Eos # (Auto) 0.2 Baso # (Auto) 0.0 Abs Immat Gran (auto) 0.44 H Absolute Neuts (auto) 5.5 Absolute Nucleated RBC 0.020 H Band Neutrophils % Not Reportable Nucleated RBC % 0.2 Platelet Estimate Decreased % Immature Plt Fraction 4.2 Hypochromasia 1+ Anisocytosis 1+ Schistocytes None seen Sodium 134 L Potassium 3.7 Chloride 109 H Carbon Dioxide 23 Anion Gap 2 L BUN 6 L D Creatinine 0.55 L Estim Creat Clear Calc 113 Estimated GFR > 60 Glucose 105 Calcium 7.6 L Phosphorus 2.5 Magnesium 1.9 Total Bilirubin 0.6 AST 56 ALT 57 H Alkaline Phosphatase 79 Total Protein 5.1 L Albumin 2.3 L
[2025-09-01 04:29] LABS: Hematocrit 24.8 % (42.0-52.0); Hemoglobin 8.2 g/dL (14.0-18.0); Mean Corpuscular HGB Conc 33.1 g/dl (32-36); Mean Corpuscular Hemoglobin 31.3 pg (26-34); Mean Corpuscular Volume 94.7 fl (80-100); Platelet Count Result 103 k/mm3 (150-375); Red Blood Count 2.62 M/mm3 (4.6-6.20); White Blood Count 8.6 K/mm3 (4.5-10.0)
[2025-09-01 04:48] LABS: Alanine Aminotransferase 63 U/L (6-50); Albumin Level 2.6 g/dL (3.5-5.1); Alkaline Phosphatase 115 U/L (38-126); Anion Gap 3 mmol/L (4-12); Aspartate Amino Transferase 64 U/L (17-59); Bilirubin,Total 0.3 mg/dL (0.2-1.3); Blood Urea Nitrogen 4 mg/dL (9-20); Calcium 7.8 mg/dL (8.4-10.2); Carbon Dioxide 24 mmol/L (22-30); Chloride 106 mmol/L (98-107); Estimated CRCL calculation 112 ml/min; Estimated Glomerular Filt Rate > 60; Glucose 103 mg/dL (65-110); Magnesium 2.0 mg/dL (1.6-2.3); Potassium 3.6 mmol/L (3.4-5.0); Sodium 133 mmol/L (137-145); Total Protein 5.5 g/dL (6.3-8.2)
--- NOTE | 2025-09-01 07:34 | WPDGIPROGNO ---
Progress Note: A&P Assessment and Plan (1) Acute duodenal ulcer with bleeding: Code(s): K26.0 - Acute duodenal ulcer with hemorrhage Status: Acute Assessment and Plan: patient doing clinically well, tolerating heart healthy diet. Hemoglobin remained stable. No signs of bleeding. Patient could be discharged home today. Plan - Can restart Brilinta tomorrow. - If okay by Cardiology, aspirin can be delayed for 3 more weeks. - Iron supplement twice a day orally - GI clinic appointment in 4 weeks Subjective Date/time seen: 09/01/25 07:34 Objective Data Vital Signs Vital Signs: Vital Signs - 24 hr 08/31/25 08:00 08/31/25 08:00 08/31/25 08:00 Temperature 97.8 F Pulse Rate 81 81 71 Respiratory Rate 18 18 Blood Pressure 125/64 Pulse Oximetry 99 99 Oxygen Delivery Room Air 08/31/25 10:00 08/31/25 12:00 08/31/25 12:00 Temperature 98.8 F Pulse Rate 80 86 86 Respiratory Rate 20 20 Blood Pressure 125/80 Pulse Oximetry 98 98 Oxygen Delivery Room Air 08/31/25 12:00 08/31/25 16:00 08/31/25 19:59 Temperature 98.2 F 98.5 F Pulse Rate 92 101 H 92 Respiratory Rate 18 16 Blood Pressure 116/65 118/70 Pulse Oximetry 99 98 Oxygen Delivery 08/31/25 23:23 Temperature 98.6 F Pulse Rate 87 Respiratory Rate 16 Blood Pressure 113/72 Pulse Oximetry 99 Oxygen Delivery Intake/Output Intake/Output: Intake & Output 08/29/25 08/30/25 08/31/25 09/01/25 23:59 23:59 23:59 23:59 Intake Total 3241.7 4501 3312 720 Output Total 2650 4800 3450 1500 Balance 591.7 -299 -138 -780 Meds/Results Medications: Active Medications Generic Name Dose Route Start Last Admin Trade Name Freq PRN Reason Stop Dose Admin Acetaminophen 650 mg 08/28/25 18:24 08/29/25 20:14 Acetaminophen 325 Mg Tablet PO 650 mg Q4H PRN Administration Mild Pain (1-3) or Fever Ondansetron HCl 4 mg 08/28/25 18:24 Ondansetron Inj 4 Mg/2 Ml Vial IV PUSH Q4H PRN Nausea Pantoprazole Sodium 40 mg 08/31/25 09:00 08/31/25 21:14 Pantoprazole 40 Mg Tablet PO 40 mg Q12HR CRISTHIAN Administration Perflutren Lipid Microsphere 0 ml 08/29/25 07:48 Perflutren Lipid Microspheres 1.5 Ml Vial Diluted To 10 Ml Total Volume IV PUSH 09/01/25 07:48 ONCE PRN adequate visualization Protocol Radiology Results: ITS Impressions Abdomen/Pelvis CT 08/28/25 17:31 IMPRESSION: 1. No acute intra-abdominal process. Incidental findings above Chest X-Ray 08/29/25 09:08 IMPRESSION: 1. Coarse reticular opacities at the bilateral lung bases corresponding to emphysema and usual interstitial pneumonia (UIP) pattern chronic interstitial lung disease on prior CT. Labs Labs: Laboratory Results - last 24 hr 09/01/25 03:47 WBC 8.6 RBC 2.62 L Hgb 8.2 L Hct 24.8 L MCV 94.7 MCH 31.3 MCHC 33.1 RDW 16.1 H Plt Count 103 L MPV 11.1 H Sodium 133 L Potassium 3.6 Chloride 106 Carbon Dioxide 24 Anion Gap 3 L BUN 4 L Creatinine 0.55 L Estim Creat Clear Calc 112 Estimated GFR > 60 Glucose 103 Calcium 7.8 L Phosphorus 2.7 Magnesium 2.0 Total Bilirubin 0.3 AST 64 H ALT 63 H Alkaline Phosphatase 115 Total Protein 5.5 L Albumin 2.6 L
[2025-09-01 08:00] VITALS: BP 122/80; PULSE 102; PULSE 86; RESP 18; RESP 20; TEMP 36.6; O2SAT 100; O2SAT 98
[2025-09-01] MEDS: PANTOPRAZOLE 40 MG TABLET PO (08:01)
--- NOTE | 2025-09-01 10:50 | P.PNCA_ITS ---
Progress Note: A&P Assessment and Plan (1) Coronary artery disease: Qualifiers: Coronary Disease-Associated Artery/Lesion type: unspecified vessel or lesion type [place] vs. transplanted heart: [place] heart Associated angina: angina presence unspecified Qualified Code(s): I25.10 - Atherosclerotic heart disease of [place] coronary artery without angina pectoris Code(s): I25.10 - Atherosclerotic heart disease of [place] coronary artery without angina pectoris Status: Acute (2) History of angioplasty: Code(s): Z98.62 - Peripheral vascular angioplasty status Status: Acute (3) Acute duodenal ulcer with bleeding: Code(s): K26.0 - Acute duodenal ulcer with hemorrhage Status: Acute (4) Cirrhosis, non-alcoholic: Code(s): K74.60 - Unspecified cirrhosis of liver Status: Acute Plan Assessment and Plan (1) Coronary artery disease: Qualifiers: Coronary Disease-Associated Artery/Lesion type: unspecified vessel or lesion type [place] vs. transplanted heart: [place] heart Associated angina: angina presence unspecified Qualified Code(s): I25.10 - Atherosclerotic heart disease of [place] coronary artery without angina pectoris Code(s): I25.10 - Atherosclerotic heart disease of [place] coronary artery without angina pectoris Status: Acute Assessment and Plan: Complex coronary artery disease with history of CABG and subsequent PCI to the LCX with laser angioplasty and stenting, PCI to the RCA. Because of this complex history he has remained on DAPT. In the setting of acute GI bleed his ASA and Brilinta are appropriately on hold. GI completed scope and noted to have bleeding duodenal ulcer s/p cautery. His H&H remain stable and would await GI recommendations on when to begin resume antiplatelet therapy. Per patient has been cleared to resume at dc. (2) Acute upper GI bleed: Code(s): K92.2 - Gastrointestinal hemorrhage, unspecified Status: Acute Assessment and Plan: GI following-found to have bleeding duodonal ulcer Management as per GI Hemoglobin is 8.2 today. Patient is clinically stable. No complaints of chest pain or shortness of breath. Okay to discharge patient home from cardiac viewpoint. 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 Per GI Service the Brilinta can be started tomorrow. Discussed with patient. Okay to hold aspirin for now for next 3 weeks. Continue monitor H&H and clinically as an outpatient. Subjective Date/time seen: 09/01/25 10:50 Interval history: Patient was examined at bedside. Patient appears to be comfortable without shortness of breath chest pain. Discharge by GI service today. Vitals are stable. Review of Systems Review of Systems: Twelve point review of system was completed. Pertinent positive and negative findings per HPI. Patient is feeling well without any positive review system today. Exam Narrative: Patient was examined at the bedside Patient is awake alert and appears comfortable. Head and neck examination is unremarkable. Neck is supple. There is no JVD or carotid bruit. Lungs are clear to auscultation percussion Heart sounds reveal normal S1-S2 no significant murmurs S3 or S4. Abdomen is soft and nontender. There is no hepatosplenomegaly blood loss presen t. Extremities revealed no pedal edema. Objective Data Vital Signs Vital Signs: Vital Signs - 24 hr 08/31/25 12:00 08/31/25 12:00 08/31/25 12:00 Temperature 37.1 C Pulse Rate 86 86 92 Respiratory Rate 20 20 Blood Pressure 125/80 Pulse Oximetry 98 98 Oxygen Delivery Room Air 08/31/25 16:00 08/31/25 19:59 08/31/25 23:23 Temperature 36.8 C 36.9 C 37.0 C Pulse Rate 101 H 92 87 Respiratory Rate 18 16 16 Blood Pressure 116/65 118/70 113/72 Pulse Oximetry 99 98 99 Oxygen Delivery 09/01/25 08:00 09/01/25 08:00 Temperature 36.6 C Pulse Rate 86 102 H Respiratory Rate 20 18 Blood Pressure 122/80 Pulse Oximetry 98 100 Oxygen Delivery Room Air Intake/Output Intake/Output: Intake & Output 08/29/25 08/30/25 08/31/25 09/01/25 23:59 23:59 23:59 23:59 Intake Total 3241.7 4501 3312 720 Output Total 2650 4800 3450 2500 Balance 591.7 -571 -802 -4437 Meds/Results Medications: Active Medications Generic Name Dose Route Start Last Admin Trade Name Freq PRN Reason Stop Dose Admin Acetaminophen 650 mg 08/28/25 18:24 08/29/25 20:14 Acetaminophen 325 Mg Tablet PO 650 mg Q4H PRN Administration Mild Pain (1-3) or Fever Ondansetron HCl 4 mg 08/28/25 18:24 Ondansetron Inj 4 Mg/2 Ml Vial IV PUSH Q4H PRN Nausea Pantoprazole Sodium 40 mg 08/31/25 09:00 09/01/25 08:01 Pantoprazole 40 Mg Tablet PO 40 mg Q12HR CRISTHIAN Administration Radiology Results: ITS Impressions Abdomen/Pelvis CT 08/28/25 17:31 IMPRESSION: 1. No acute intra-abdominal process. Incidental findings above Chest X-Ray 08/29/25 09:08 IMPRESSION: 1. Coarse reticular opacities at the bilateral lung bases corresponding to emphysema and usual interstitial pneumonia (UIP) pattern chronic interstitial lung disease on prior CT. Labs Labs: Laboratory Results - last 24 hr 09/01/25 03:47 WBC 8.6 RBC 2.62 L Hgb 8.2 L Hct 24.8 L MCV 94.7 MCH 31.3 MCHC 33.1 RDW 16.1 H Plt Count 103 L MPV 11.1 H Sodium 133 L Potassium 3.6 Chloride 106 Carbon Dioxide 24 Anion Gap 3 L BUN 4 L Creatinine 0.55 L Estim Creat Clear Calc 112 Estimated GFR > 60 Glucose 103 Calcium 7.8 L Phosphorus 2.7 Magnesium 2.0 Total Bilirubin 0.3 AST 64 H ALT 63 H Alkaline Phosphatase 115 Total Protein 5.5 L Albumin 2.6 L
--- NOTE | 2025-09-01 12:32 | PM.DS ---
DS: Admitting Diagnosis Discharge Date 09/01/25 Admitting Diagnosis Nausea and vomiting without diarrhea DS: Discharge Diagnosis Discharge Diagnosis (1) Acute upper GI bleed: Code(s): K92.2 - Gastrointestinal hemorrhage, unspecified Status: Acute Assessment and Plan: -GI has been consulted. -I spoke with the laborer cheesemaking who is agreeable to admit the patient to ICU. Surgery Scheduler consult has been placed. -I did discuss his code status the patient stated he is a full code. -2 units of packed red blood cell has been ordered. -in the event that there is a delay in obtaining blood for the patient we will give him 2 units of platelets. -the patient has been on Brilinta and aspirin and recently was prescribed prednisone. Patient stated he has not been taking the prednisone with meals. -the patient stated he noted stools that were darker than normal but he suspected this was from eating blueberries. However he was guaiac-positive in the emergency room. -the patient is tachy with heart rate in the low 1 100s. Blood pressure soft 107/68. -I did consult Cardiology as the patient has an extensive cardiac history and is on Brilinta and aspirin. The patient stated that the last time that he helps his Brilinta and aspirin his stents occluded. I explained to him that I could not give him these medications at this time as his blood counts were dangerously low. -continue with Protonix drip. -keep the patient NPO at this time -patient stated that he did vomit but did not notice any blood in his emesis. He denies any noticeable bleeding from his rectum but did notice that his stools were darker. -Abdomen/Pelvis CT 08/28/25 17:31 IMPRESSION: 1. No acute intra-abdominal process. Incidental findings ab (2) Coronary artery disease: Qualifiers: Coronary Disease-Associated Artery/Lesion type: unspecified vessel or lesion type [place] vs. transplanted heart: [place] heart Associated angina: angina presence unspecified Qualified Code(s): I25.10 - Atherosclerotic heart disease of [place] coronary artery without angina pectoris Code(s): I25.10 - Atherosclerotic heart disease of [place] coronary artery without angina pectoris Status: Acute Assessment and Plan: -according to the patient he has had 9 cardiac stents. However reviewing the records suggest that he only had 6. The patient also stated that he has had a 6 vessel CABG. -the patient has been on aspirin and Brilinta which is currently on hold. -I did consult Cardiology as the patient follows with Dr. Romero and there was some concerns about the stents clotting off if he is off Brilinta and aspirin for appear to time. -the patient is on isosorbide however his blood pressure soft at this time and we are unable to give this to him. -she is also on metoprolol however his blood pressure is low at this time so that with placed on hold. (3) Cirrhosis, non-alcoholic: Code(s): K74.60 - Unspecified cirrhosis of liver Status: Acute Assessment and Plan: -MELD score 22 with a mortality rate of 19.6 -CT of the abdomen shows cirrhotic changes of the liver. Portal vein patent. No intrahepatic biliary duct dilatation. -non alcoholic cirrhosis of liver. -patient's AST 63, ALT 103 and alkaline phosphatase 71. Patient's AST is at baseline. (4) Lumbar back pain: Code(s): M54.50 - Low back pain, unspecified Status: Acute Assessment and Plan: -continue with pain medication if blood pressure allows. -holding prednisone. (5) Hyperlipidemia: Code(s): E78.5 - Hyperlipidemia, unspecified Status: Acute Assessment and Plan: -omega-3 daily. He is NPO at this time. -check lipid profile (6) Leukocytosis: Code(s): D72.829 - Elevated white blood cell count, unspecified Status: Acute Assessment and Plan: -patient's lactic level went from 5.2-3.3 after fluids. -blood cultures are pending. -this could be stress-induced or steroid induced. -daily CBCs. -the patient was started on Zosyn pending cultures. -lactic was elevated but responsive to fluids. -continue to check daily lactic acid levels -ordered chest x-ray. -CT of the abdomen shows nothing acute. -UA was negative. -continue with IV hydration (7) Chronic pancreatitis: Code(s): K86.1 - Other chronic pancreatitis Status: Acute Assessment and Plan: -monitor lipase levels. -the patient has been on Pancrease which is currently on hold due to his NPO status. Plan 64 y/o male presented with GI bleed, was seen by the GI and EGD and showed patient has a single duodenum ulcer ranging 12mm to 15mm which cauterized and since then his Hgb been stable and there is no further bleeding, patient also has significant cardiac history and had been taking DAPT with Brilinta and aspirin which are on hold and speech language therapist is in agreement, patient remains clinically stable and if there are further bleeding, will discharge home tomorrow. DS: Summary Hospital Course Hospital Course: 64 y/o male presented with GI bleed, was seen by the GI and EGD and showed patient has a single duodenum ulcer ranging 12mm to 15mm which cauterized and since then his Hgb been stable and there is no further bleeding, patient also has significant cardiac history and had been taking DAPT with Brilinta and aspirin which are on hold and speech language therapist is in agreement, patient remains clinically stable and if there are further bleeding, Patient is clinically stable, and does not have any complainst, speech language therapist is okay to discharge patient on Brillinta and hold aspirin for 3 weeks before restarting. patient is clinically stable, will discharg today. Time Spent with Patient Time attestation: Total time spent providing and/or coordinating discharge services: Exam Narrative: Patient is comfortable, NAD HEENT: eyes are clear and none icteric LUNGS:CTA HEART: RR S1S2 ABD: BS+, Soft and nontender Lower extremities: no edema SKIN: nonjaundiced Neuro: grossly intact. DS: Data Data Completed and Pending Labs on day of discharge: Labs from last 24 hours 09/01/25 03:47 WBC 8.6 RBC 2.62 L Hgb 8.2 L Hct 24.8 L MCV 94.7 MCH 31.3 MCHC 33.1 RDW 16.1 H Plt Count 103 L MPV 11.1 H Sodium 133 L Potassium 3.6 Chloride 106 Carbon Dioxide 24 Anion Gap 3 L BUN 4 L Creatinine 0.55 L Estim Creat Clear Calc 112 Estimated GFR > 60 Glucose 103 Calcium 7.8 L Phosphorus 2.7 Magnesium 2.0 Total Bilirubin 0.3 AST 64 H ALT 63 H Alkaline Phosphatase 115 Total Protein 5.5 L Albumin 2.6 L Preliminary micro results at discharge 08/28/25 16:00 Blood Culture - Preliminary Blood 08/28/25 16:10 Blood Culture - Preliminary Blood Discharge Plan Discharge Attending physician on discharge: Emanuel Chou Consulting providers: Erwin Shay; Zoila Zapata; Taj Velasquez; Milo Schmidt; Familia Zuleta; Genevieve Metcalf; Raven Barrera; Km Chamorro; Jesse Correa Jr.; Fiordaliza Shukla; Lay Colmenares; Marco Ball; Ambrose Ren Discharging Clinician: Tera Izaguirre Patient Disposition: Home Activity: as tolerated Diet: heart healthy Discharge Instructions: Patient to continue his Brilinta and hold Aspirin for 3 weeks, Iron supplement twice a day, patient to follow discharge care instructions his speech language therapist and GI and follow as scheduled, patient to follow up with primary care provider as soon as possible, patient is instructed if any symptoms worsen to go to nearest ER. Patient Instructions: Anemia (DC) Patient Language: Faroese Stand Alone Forms: General Discharge Information Follow-up/Referrals: Sri Fajardo MD [Primary Care Provider, Family Practice] Milo Scmhidt MD [Physician, Gastroenterology] Discharge Medications: New pantoprazole 40 mg Tablet,Delayed Release (Dr/Ec) 40 mg PO Q12HR Qty: 60 0RF Continued Repatha SureClick 140 mg/mL pen injector 140 mg SUB-Q [id number] Rx Instructions: SUBQ EVERY TWO WEEKS. isosorbide mononitrate 30 mg tablet extended release 24 hr 30 mg PO DAILY omega-3 fatty acids 1,000 mg capsule 1,000 mg PO DAILY famotidine [Pepcid] 40 mg tablet 40 mg PO DAILY montelukast 10 mg tablet 10 mg PO QHS Qty: 30 3RF acetaminophen 500 mg capsule 1,000 mg PO Q6H PRN (Reason: pain) Qty: 30 0RF Brilinta 90 mg tablet 90 mg PO Q12H Rx Instructions: take 1 tablet by oral route 2 times every day metoprolol succinate 50 mg tablet extended release 24 hr 50 mg PO DAILY ergocalciferol (vitamin D2) 1,250 mcg (50,000 unit) capsule 1,250 mcg PO WEEKLY Qty: 14 3RF niacin 1,000 mg tablet extended release 24 hr 1,000 mg PO .at bedtime Qty: 90 1RF nitroglycerin 0.4 mg tablet, sublingual 0.4 mg sublingual Q5M PRN (Reason: chest pain) Qty: 100 0RF Rx Instructions: do not exceed 3 doses per episode hydrocodone-acetaminophen 7.5-325 mg tablet 1 tablet PO Q6H PRN (Reason: pain) Qty: 120 0RF methocarbamol 750 mg tablet 750 mg PO HS Qty: 30 0RF Held aspirin [Adult Low Dose Aspirin] 81 mg Tablet,Delayed Release (Dr/Ec) 81 mg PO DAILY Hold Instructions: patient to hold aspirin for 3 weeks Date of admission: 08/29/25 07:36 Primary Care Provider: Sri Fajardo Admitting Provider: Emanuel Chou Attending physician on admission: Tera Izaguirre Condition: Stable
== END 2025-09-01 13:02 | disposition home or self-care (01) | DRG 378 ==
LOC: ANHED 19:00 → ANHIMU 20:03 → ANHICU 20:14 → ANHIMU 08-30 16:21
PROVIDERS: Internal Medicine; Internal Medicine Gastroenterology; Nurse Practitioner; Admitting Provider Internal Medicine; Emergency Provider Emergency Medicine; PCP Family Medicine; Visit Provider Family Medicine
PROC: 0DJ08ZZ Inspection of Upper Intestinal Tract, Via Natural or Artificial Opening Endoscopic (ICD-10-PCS; principal; 2025-08-29 14:00)
DX: K26.0 Acute duodenal ulcer with hemorrhage (principal); K86.1 Other chronic pancreatitis; K72.10 Chronic hepatic failure without coma; K74.60 Unspecified cirrhosis of liver; K21.9 Gastro-esophageal reflux disease without esophagitis; M54.50 Low back pain, unspecified; D50.0 Iron deficiency anemia secondary to blood loss (chronic); D72.829 Elevated white blood cell count, unspecified; E78.5 Hyperlipidemia, unspecified; I25.2 Old myocardial infarction; I25.10 Atherosclerotic heart disease of native coronary artery without angina pectoris; I10 Essential (primary) hypertension; Z79.02 Long term (current) use of antithrombotics/antiplatelets; Z79.82 Long term (current) use of aspirin; Z95.5 Presence of coronary angioplasty implant and graft; Z86.73 Personal history of transient ischemic attack (TIA), and cerebral infarction without residual deficits; Z95.1 Presence of aortocoronary bypass graft; Z90.49 Acquired absence of other specified parts of digestive tract; Z87.891 Personal history of nicotine dependence; Z79.891 Long term (current) use of opiate analgesic
CPT/HCPCS: 36415; 36430; 71045; 74177; 80048; 80053; 80061; 81003; 82140; 82274; 82607; 82728; 82746; 83036; 83540; 83550; 83605; 83690; 83735; 84100; 85014; 85018; 85025; 85027; 85055; 85380; 85384; 85730; 86850; 86900; 86901; 86923; 87040; 87493; 87507; 87641; 93005; 93306; 96361; 96365; 99285; A9270; G0378; J0168; J2003; J2270; J2371; J2470; J2543; J2704; J7030; J7040; J7050; J7120; P9016; P9034; Q9967